=== PATIENT | male | born 1945 | race Caucasian/White ===

== ENCOUNTER 2019-03-02 08:47 | Inpatient (IN) | payer OTHER, MEDICARE, BC ==
[2019-03-02] MEDS ORDERED: IPRATROPIUM-ALBUTEROL 3 ML NEB INHALATION STA (09:11)
[2019-03-02] MEDS ORDERED: ALBUTEROL NEBULIZED 2.5 MG/3 ML INHALATION STA (09:11)
[2019-03-02] MEDS ORDERED: DEXAMETHASONE SOD PHOSPHATE 10 MG/ML 1 ML VIAL IV STA (09:11)
--- NOTE | 2019-03-02 09:19 | ED ---
General Adult HPI - General Chief complaint: Arrhythmia/Palpitations Stated complaint: Chest pain Time Seen by Provider: 03/02/19 08:48 Source: patient, RN notes reviewed, old records reviewed Mode of arrival: wheelchair Limitations: no limitations - History of Present Illness Initial comments: 73-year-old male history of COPD presents for evaluation of 2 weeks of cough and dyspnea. Patient was sent in by primary care physician with worsening dyspnea and abnormal EKG. Patient has no history coronary artery disease, no history of arrhythmia. He was found to have be in a regular rhythm at his primary care office with severe dyspnea and was recommended to presents emergency department for evaluation. He reports 2 weeks of cough productive of green sputum and dyspnea worse with exertion. Denies orthopnea, denies PND. He has no known history of heart failure, no history of CAD. He denies central chest pain. He has had some palpitations. Denies lower extremity swelling. Denies abdominal pain nausea vomiting. - Related Data Home Medications Medication Instructions Recorded Confirmed Atorvastatin Calcium [Lipitor] 10 mg PO DAILY 03/02/19 03/02/19 Budesonide/Formoterol Fumarate 2 puff INHALATION RT-BID 03/02/19 03/02/19 [Symbicort 160-4.5 Mcg Inhaler] Ergocalciferol (Vitamin D2) 50,000 unit PO Q7D 03/02/19 03/02/19 [Vitamin D2] Lisinopril [Prinivil] 10 mg PO DAILY 03/02/19 03/02/19 Phentermine HCl [Adipex-P] 37.5 mg PO DAILY 03/02/19 03/02/19 Allergies Allergy/AdvReac Type Severity Reaction Status Date / Time No Known Allergies Allergy Verified 03/02/19 09:29 Review of Systems ROS Statement: Those systems with pertinent positive or pertinent negative responses have been documented in the HPI. ROS Other: All systems not noted in ROS Statement are negative. Past Medical History Past Medical History: COPD History of Any Multi-Drug Resistant Organisms: None Reported Past Surgical History: Adenoidectomy, Appendectomy, Orthopedic Surgery, Tonsillectomy Past Psychological History: Anxiety, Depression Smoking Status: Former smoker Past Alcohol Use History: None Reported Past Drug Use History: None Reported General Exam Limitations: no limitations General appearance: alert, in distress Head exam: Present: atraumatic, normocephalic Eye exam: Present: normal appearance, PERRL ENT exam: Present: normal exam Neck exam: Present: normal inspection. Absent: tenderness, meningismus Respiratory exam: Present: respiratory distress, wheezes, rales, decreased breath sounds Cardiovascular Exam: Present: regular rate, irregular rhythm GI/Abdominal exam: Present: soft, distended. Absent: tenderness, guarding, rebound Extremities exam: Present: normal inspection, normal capillary refill. Absent: pedal edema, calf tenderness Neurological exam: Present: alert, oriented X3, CN II-XII intact. Absent: motor sensory deficit Psychiatric exam: Present: normal affect, normal mood Skin exam: Present: warm, dry, intact. Absent: cyanosis, diaphoretic Course Vital Signs 03/02/19 03/02/19 03/02/19 08:47 09:01 09:43 Temperature 98.9 F Pulse Rate 47 L 57 L 76 Pulse Rate [ Right Radial] Respiratory 22 24 Rate Blood Pressure 202/96 O2 Sat by Pulse 94 L Oximetry 03/02/19 03/02/19 03/02/19 09:47 09:48 10:17 Temperature Pulse Rate 80 87 Pulse Rate [ 80 Right Radial] Respiratory 22 22 Rate Blood Pressure 160/70 O2 Sat by Pulse 97 Oximetry EKG Findings - EKG Comments: EKG Findings:: EKG: Sinus tachycardia with PVC, there is concern for MAT, rate of 101, OK interval 190, QRS duration 76, QTC 381, significant ectopy. No ST segment elevation. Medical Decision Making - Medical Decision Making 73-year-old male presenting with cough and dyspnea. No chest pain. He has had some palpitations. EKG sinus rhythm with ectopy versus MAT. Chest x-ray shows concern for CHF versus atypical pneumonia with small left-sided effusion. He has an elevated white blood cell count at 17.9. Not previously on oral steroids. He has a stable hemoglobin. His CO2 on venous gas 57 and a bicarb of 32 suggesting some chronic CO2 retention secondary to COPD. He has a BNP of 875. Minimal troponin elevation 0.044, may be related to demand however given the patient's risk factors, he is treated with aspirin and heparin. He has no chest pain. Cardiology will be placed on consult for further evaluation, echo will be obtained. He will be treated for COPD exacerbation and atypical pneumonia. Case discussed with admitting physician. - Lab Data Result diagrams: 03/02/19 09:24 03/02/19 09:24 Lab Results 03/02/19 03/02/19 03/02/19 Range/Units 09:24 09:24 09:24 WBC 17.9 H (3.8-10.6) k/uL RBC 4.95 (4.30-5.90) m/uL Hgb 14.4 (13.0-17.5) gm/dL Hct 45.8 (39.0-53.0) % MCV 92.5 (80.0-100.0) fL MCH 29.1 (25.0-35.0) pg MCHC 31.5 (31.0-37.0) g/dL RDW 13.3 (11.5-15.5) % Plt Count 416 (150-450) k/uL Neutrophils % 78 % Lymphocytes % 12 % Monocytes % 5 % Eosinophils % 4 % Basophils % 1 % Neutrophils # 13.9 H (1.3-7.7) k/uL Lymphocytes # 2.2 (1.0-4.8) k/uL Monocytes # 0.8 (0-1.0) k/uL Eosinophils # 0.7 (0-0.7) k/uL Basophils # 0.1 (0-0.2) k/uL PT (9.0-12.0) sec INR (<1.2) APTT (22.0-30.0) sec VBG pH (7.31-7.41) VBG pCO2 (37-51) mmHg VBG HCO3 (24-28) mmol/L Sodium 142 (137-145) mmol/L Potassium 4.5 (3.5-5.1) mmol/L Chloride 102 (98-107) mmol/L Carbon Dioxide 32 H (22-30) mmol/L Anion Gap 8 mmol/L BUN 17 (9-20) mg/dL Creatinine 0.98 (0.66-1.25) mg/dL Est GFR (CKD-EPI)AfAm >90 (>60 ml/min/1.73 sqM) Est GFR (CKD-EPI)NonAf 78 (>60 ml/min/1.73 sqM) Glucose 108 H (74-99) mg/dL Plasma Lactic Acid Aashish (0.7-2.0) mmol/L Calcium 9.4 (8.4-10.2) mg/dL Magnesium 2.0 (1.6-2.3) mg/dL Total Bilirubin 0.7 (0.2-1.3) mg/dL AST 20 (17-59) U/L ALT 16 L (21-72) U/L Alkaline Phosphatase 71 (38-126) U/L Troponin I (0.000-0.034) ng/mL NT-Pro-B Natriuret Pep 875 pg/mL Total Protein 7.0 (6.3-8.2) g/dL Albumin 4.0 (3.5-5.0) g/dL 03/02/19 03/02/19 03/02/19 Range/Units 09:24 09:24 09:24 WBC (3.8-10.6) k/uL RBC (4.30-5.90) m/uL Hgb (13.0-17.5) gm/dL Hct (39.0-53.0) % MCV (80.0-100.0) fL MCH (25.0-35.0) pg MCHC (31.0-37.0) g/dL RDW (11.5-15.5) % Plt Count (150-450) k/uL Neutrophils % % Lymphocytes % % Monocytes % % Eosinophils % % Basophils % % Neutrophils # (1.3-7.7) k/uL Lymphocytes # (1.0-4.8) k/uL Monocytes # (0-1.0) k/uL Eosinophils # (0-0.7) k/uL Basophils # (0-0.2) k/uL PT 10.3 (9.0-12.0) sec INR 1.0 (<1.2) APTT 26.4 (22.0-30.0) sec VBG pH (7.31-7.41) VBG pCO2 (37-51) mmHg VBG HCO3 (24-28) mmol/L Sodium (137-145) mmol/L Potassium (3.5-5.1) mmol/L Chloride (98-107) mmol/L Carbon Dioxide (22-30) mmol/L Anion Gap mmol/L BUN (9-20) mg/dL Creatinine (0.66-1.25) mg/dL Est GFR (CKD-EPI)AfAm (>60 ml/min/1.73 sqM) Est GFR (CKD-EPI)NonAf (>60 ml/min/1.73 sqM) Glucose (74-99) mg/dL Plasma Lactic Acid Aashish 1.1 (0.7-2.0) mmol/L Calcium (8.4-10.2) mg/dL Magnesium (1.6-2.3) mg/dL Total Bilirubin (0.2-1.3) mg/dL AST (17-59) U/L ALT (21-72) U/L Alkaline Phosphatase (38-126) U/L Troponin I 0.044 H* (0.000-0.034) ng/mL NT-Pro-B Natriuret Pep pg/mL Total Protein (6.3-8.2) g/dL Albumin (3.5-5.0) g/dL 03/02/19 Range/Units 09:24 WBC (3.8-10.6) k/uL RBC (4.30-5.90) m/uL Hgb (13.0-17.5) gm/dL Hct (39.0-53.0) % MCV (80.0-100.0) fL MCH (25.0-35.0) pg MCHC (31.0-37.0) g/dL RDW (11.5-15.5) % Plt Count (150-450) k/uL Neutrophils % % Lymphocytes % % Monocytes % % Eosinophils % % Basophils % % Neutrophils # (1.3-7.7) k/uL Lymphocytes # (1.0-4.8) k/uL Monocytes # (0-1.0) k/uL Eosinophils # (0-0.7) k/uL Basophils # (0-0.2) k/uL PT (9.0-12.0) sec INR (<1.2) APTT (22.0-30.0) sec VBG pH 7.34 (7.31-7.41) VBG pCO2 57 H (37-51) mmHg VBG HCO3 30 H (24-28) mmol/L Sodium (137-145) mmol/L Potassium (3.5-5.1) mmol/L Chloride (98-107) mmol/L Carbon Dioxide (22-30) mmol/L Anion Gap mmol/L BUN (9-20) mg/dL Creatinine (0.66-1.25) mg/dL Est GFR (CKD-EPI)AfAm (>60 ml/min/1.73 sqM) Est GFR (CKD-EPI)NonAf (>60 ml/min/1.73 sqM) Glucose (74-99) mg/dL Plasma Lactic Acid Aashish (0.7-2.0) mmol/L Calcium (8.4-10.2) mg/dL Magnesium (1.6-2.3) mg/dL Total Bilirubin (0.2-1.3) mg/dL AST (17-59) U/L ALT (21-72) U/L Alkaline Phosphatase (38-126) U/L Troponin I (0.000-0.034) ng/mL NT-Pro-B Natriuret Pep pg/mL Total Protein (6.3-8.2) g/dL Albumin (3.5-5.0) g/dL Critical Care Time Critical Care Time: Yes Total Critical Care Time: 35 Disposition Clinical Impression: Arrhythmia, COPD exacerbation, Atypical pneumonia Disposition: ADMITTED IP TO THIS [facility] Condition: Stable Is patient prescribed a controlled substance at d/c from ED?: No Referrals: John Grant MD [Primary Care Provider] - 1-2 days Decision to Admit Reason: Admit from EC Decision Date: 03/02/19 Decision Time: 10:48
[2019-03-02 09:41] LABS: Basophils # (A) 0.1 k/uL (0-0.2); Basophils % (A) 1 %; Eosinophils # (A) 0.7 k/uL (0-0.7); Eosinophils % (A) 4 %; HCT 45.8 % (39.0-53.0); HGB 14.4 gm/dL (13.0-17.5); Lymphocytes # (A) 2.2 k/uL (1.0-4.8); Lymphocytes % (A) 12 %; MCH 29.1 pg (25.0-35.0); MCHC 31.5 g/dL (31.0-37.0); MCV 92.5 fL (80.0-100.0); Mean Platelet Volume 7.1; Monocytes # (A) 0.8 k/uL (0-1.0); Monocytes % (A) 5 %; Neutrophils # (A) 13.9 k/uL (1.3-7.7); Neutrophils % (A) 78 %; Platelet Count 416 k/uL (150-450); RBC 4.95 m/uL (4.30-5.90); RDW 13.3 % (11.5-15.5); WBC 17.9 k/uL (3.8-10.6)
[2019-03-02 09:42] LABS: VBG PH 7.34 (7.31-7.41)
[2019-03-02 09:55] LABS: ALT 16 U/L (21-72); AST 20 U/L (17-59); African American GFR (CKD) >90 (>60 ml/min/1.73 sqM); Alkaline Phosphatase 71 U/L (38-126); Anion Gap 8 mmol/L; Blood Urea Nitrogen 17 mg/dL (9-20); Calcium 9.4 mg/dL (8.4-10.2); Carbon Dioxide 32 mmol/L (22-30); Chloride 102 mmol/L (98-107); Glucose 108 mg/dL (74-99); Partial Thromboplastin Time 26.4 sec (22.0-30.0); Potassium 4.5 mmol/L (3.5-5.1); Prothrombin Time 10.3 sec (9.0-12.0); Sodium 142 mmol/L (137-145); Total Bilirubin 0.7 mg/dL (0.2-1.3)
--- NOTE | 2019-03-02 09:57 | XR ---
EXAMINATION TYPE: XR chest 2V DATE OF EXAM: 03/02/2019 HISTORY: Chest Pain. REFERENCE: Previous study dated 11/06/2012. FINDINGS: Heart size is within normal limits. There are some increased markings throughout the chest. Lung volumes are prominent. There is a tiny left effusion. There is mild interstitial prominence. IMPRESSION: MILD INTERSTITIAL PROMINENCE WITH MILD THICKENING OF THE POSTERIOR WALL OF THE BRONCHUS INTERMEDIUS S UGGESTS INTERSTITIAL CHANGE. THIS COULD BE DUE TO CONGESTIVE HEART FAILURE OR ATYPICAL PNEUMONIA. THE RE IS A SMALL LEFT EFFUSION.
[2019-03-02] MEDS ORDERED: HEPARIN SODIUM,PORCINE 5,000 UNIT/ML 1 ML VIAL IV PRN (10:36)
[2019-03-02] MEDS ORDERED: ASPIRIN 325 MG TAB PO STA ×2 (10:36→11:57)
[2019-03-02] MEDS ORDERED: HEPARIN SODIUM,PORCINE 5,000 UNIT/ML 1 ML VIAL IV ONE (10:36)
[2019-03-02] MEDS ORDERED: cefTRIAXone IN SWFI 1,000 MG/10 ML SYRINGE IVP STA (10:38)
[2019-03-02] MEDS ORDERED: AZITHROMYCIN 500 MG in SODIUM CHLORIDE 0.9% 250 ML IVPB STA (10:40)
[2019-03-02] MEDS ORDERED: IPRATROPIUM-ALBUTEROL 3 ML NEB INHALATION PRN (10:42)
[2019-03-02] MEDS: HEPARIN SOD,PORK IN 0.45% NACL 25,000 UNIT in 0.45% NACL 1 250ML.BAG IV SCH (11:28)
[2019-03-02] MEDS: IPRATROPIUM-ALBUTEROL 3 ML NEB INHALATION SCH ×3 (11:55→19:15)
[2019-03-02] MEDS: methylPREDNISolone SOD SUCCI 125 MG/2 ML VIAL IV SCH ×3 (16:04→22:34)
[2019-03-02 18:28] VITALS: BMI 38.9
[2019-03-02 21:13] LABS: Glucose,Whole Blood 291 mg/dL (75-99)
[2019-03-02] MEDS: QUEtiapine 50 MG TAB PO SCH (22:34)
[2019-03-03 06:12] LABS: Glucose,Whole Blood 113 mg/dL (75-99)
[2019-03-03] MEDS: INSULIN ASPART (NovoLOG) 100 UNIT/ML VIAL SQ SCH ×4 (06:20→21:52)
[2019-03-03] MEDS: methylPREDNISolone SOD SUCCI 125 MG/2 ML VIAL IV SCH ×2 (06:24→12:12)
[2019-03-03 06:41] LABS: Basophils % (A) 0 %; Eosinophils # (A) 0.1 k/uL (0-0.7); Eosinophils % (A) 0 %; HCT 43.9 % (39.0-53.0); HGB 14.2 gm/dL (13.0-17.5); Lymphocytes # (A) 1.3 k/uL (1.0-4.8); Lymphocytes % (A) 5 %; MCHC 32.3 g/dL (31.0-37.0); Mean Platelet Volume 7.5; Monocytes # (A) 0.7 k/uL (0-1.0); Monocytes % (A) 3 %; Neutrophils # (A) 22.7 k/uL (1.3-7.7); Neutrophils % (A) 91 %; Platelet Count 414 k/uL (150-450); RBC 4.72 m/uL (4.30-5.90); RDW 13.3 % (11.5-15.5); WBC 24.9 k/uL (3.8-10.6)
--- NOTE | 2019-03-03 07:25 | ECHOF ---
Referral Reason:CHF? MEASUREMENTS -------- HEIGHT: 167.6 cm WEIGHT: 109.3 kg BP: 160/70 RVIDd: 3.1 cm (< 3.3) IVSd: 1.4 cm (0.6 - 1.1) LVIDd: 4.6 cm (3.9 - 5.3) LVPWd: 1.4 cm (0.6 - 1.1) IVSs: 1.9 cm LVIDs: 3.8 cm LVPWs: 2.0 cm LA Diam: 3.8 cm (2.7 - 3.8) LAESV Index (A-L): 27.86 ml/m Ao Diam: 3.7 cm (2.0 - 3.7) AV Cusp: 1.9 cm (1.5 - 2.6) MV EXCURSION: 31.345 mm (> 18.000) MV EF SLOPE: 128 mm/s (70 - 150) EPSS: 0.8 cm RAP: 5.00 mmHg RVSP: 42.30 mmHg FINDINGS -------- Atrial fibrillation. This was a technically adequate study. Pt. Had Back surgery: brace up to collar bone. The left ventricular size is normal. There is moderate concentric left ventricular hypertrophy. O verall left ventricular systolic function is mild-moderately impaired with, an EF between 40 - 45 %. The right ventricle is normal in size. Normal LA size by volume 22+/-6 ml/m2. The right atrium is normal in size. Interatrial and interventricular septum intact. There is mild aortic valve sclerosis. Mild mitral annular calcification present. Mild mitral regurgitation is present. Mild tricuspid regurgitation present. There is mild pulmonary hypertension. The right ventricular systolic pressure, as measured by Doppler, is 42.30mmHg. Trace/mild (physiologic) pulmonic regurgitation. The aortic root size is normal. Normal inferior vena cava with normal inspiratory collapse consistent with estimated right atrial pre ssure of 5 mmHg. There is no pericardial effusion. CONCLUSIONS -------- 1. Atrial fibrillation. 2. This was a technically adequate study. 3. The left ventricular size is normal. 4. There is moderate concentric left ventricular hypertrophy. 5. Overall left ventricular systolic function is mild-moderately impaired with, an EF between 40 - 45 %. 6. The right ventricle is normal in size. 7. Normal LA size by volume 22+/-6 ml/m2. 8. The right atrium is normal in size. 9. Interatrial and interventricular septum intact. 10. There is mild aortic valve sclerosis. 11. Mild mitral annular calcification present. 12. Mild mitral regurgitation is present. 13. Mild tricuspid regurgitation present. 14. There is mild pulmonary hypertension. 15. The right ventricular systolic pressure, as measured by Doppler, is 42.30mmHg. 16. Trace/mild (physiologic) pulmonic regurgitation. 17. The aortic root size is normal. 18. Normal inferior vena cava with normal inspiratory collapse consistent with estimated right atrial pressure of 5 mmHg. 19. There is no pericardial effusion. TECH ED/[employer] TEACHER: Elana Acosta RDCS
[2019-03-03] MEDS: IPRATROPIUM-ALBUTEROL 3 ML NEB INHALATION SCH ×4 (08:43→20:38)
[2019-03-03] MEDS: HEPARIN SOD,PORK IN 0.45% NACL 25,000 UNIT in 0.45% NACL 1 250ML.BAG IV SCH (10:20)
--- NOTE | 2019-03-03 11:45 | P.CRDCN ---
History of Present Illness Consult date: 03/03/19 Reason for Consult (text): Elevated troponins, arrhythmia Chief complaint: Shortness of breath History of present illness: This is a 72-year-old male with no previous cardiac history. He does have history of COPD and follows at the [facility] for his healthcare needs. Patient states he came in the hospital due to shortness of breath. He is not home O2 dependent. He states he has had some palpitations, no chest pain. His initial heart rate was noted to be 47 and blood pressure 202/96. Chest x-ray showed questionable CHF or atypical pneumonia and small left effusion. patient denies any significant improvement of his shortness of breath. he complains of cough with sputum production. patient states that he has increased shortness of breath with minimal activity such as walking to the bathroom. He has been on nebulizer treatments as well as IV Solu-Medrol. Patient was started on a heparin drip in the emergency center.patient denies having echocardiogram done in the past. He has been advised to take his records from [facility] Ananda David to his next visit at [facility]. EKG reveals sinus mechanismwith frequent PACs and PVCs. No ST-T wave changes.. Echocardiogram reveals EF of 40-45% with mild mitral regurgitation and mild pulmonary hypertension. Laboratory studies: WBC 17.9, troponin 0.044, 0.019, 0.020. ProBNP 875. Social history: patient quit smoking a few weeks ago. He denies any alcohol abuse. Review Of Systems: Constitutional: No fever, no chills, no night sweats. No weight change. No weakness, fatigue or lethargy. No daytime sleepiness. EENT: No headache. No nasal drainage or congestion. No epistaxis. No sore throat. Lungs: reports shortness of breath, reports cough, reports sputum production. reports wheezing. Cardiovascular: No chest pain, no lower extremity edema. No palpitations. No paroxysmal nocturnal dyspnea. No orthopnea. No lightheadedness or dizziness. No syncopal episodes. Abdominal: No abdominal pain. No nausea, vomiting. No diarrhea. No constip ation. No bloody or tarry stools. No loss of appetite. Genitourinary: No dysuria. No urinary retention. Musculoskeletal: No myalgias. No muscle weakness, no gait dysfunction, no frequent falls. Integumentary: No wounds, No rash or pruritus. Neurologic: No aphasia. No facial droop. No change in mentation. No head injury. No headache. No paralysis. No paresthesia. Endocrine: No excessive sweating or thirst. No weight change. Physical exam: Gen: This is a 73-year-old male. He is resting in bed and appears to be fairly comfortable. He is complaining of shortness of breath but no acute dyspnea noted at rest. Blood pressure 202/96, heart rate 57, respirations 24, pulse ox 94% on 2 L nasal cannula. HEENT: Head is atraumatic, normocephalic. Pupils equal, round. Sclerae is anicteric. NECK: Supple. No JVD. No lymphadenopathy. No thyromegaly. LUNGS: Clear to auscultation. No wheezes or rhonchi. No intercostal retractions. HEART: Regular rate and rhythm. No murmur. ABDOMEN: Soft. Bowel sounds are present. No masses. No tenderness. EXTREMITIES: No pedal edema. No calf tenderness. NEUROLOGICAL: Patient is awake, alert and oriented x3. Cranial nerves 2 through 12 are grossly intact. Assessment: acute bronchitis and exacerbation of COPD. Elevated troponins on related to myocardial injury. Cardiomyopathy of unclear etiology. Cardiac arrhythmia with frequent PACs and PVCs. Hyperglycemia secondary to steroids. Hypertension, new diagnoses. Plan: Discontinue heparin drip and place patient on subcu heparin. Start aspirin 81 mg daily. Start Metoprolol tartrate 25 mg twice daily. Start losartan 25 mg daily. Consult with Dr. Reagan for COPD exacerbation and acute bronchitis. Further recommendations to follow based upon clinical course. patient to take hospital records [facility] further workup regarding cardiomyopathy. Nurse practitioner note has been reviewed, I agree with documented findings and plan of care. Patient was seen and examined. Past Medical History Past Medical History: COPD History of Any Multi-Drug Resistant Organisms: None Reported Past Surgical History: Adenoidectomy, Appendectomy, Orthopedic Surgery, Tonsillectomy Past Psychological History: Anxiety, Depression, PTSD Smoking Status: Former smoker Past Alcohol Use History: None Reported Past Drug Use History: None Reported - Past Family History Mother Family Medical History: No Reported History Father Family Medical History: Hypertension Medications and Allergies Home Medications Medication Instructions Recorded Confirmed Type Budesonide/Formoterol Fumarate 2 puff INHALATION RT-BID 03/02/19 03/02/19 History [Symbicort 160-4.5 Mcg Inhaler] PARoxetine HCL [Paxil] 40 mg PO HS 03/02/19 03/02/19 History Prazosin HCl 2 mg PO HS 03/02/19 03/02/19 History QUEtiapine FUMARATE 50 mg PO HS 03/02/19 03/02/19 History Allergies Allergy/AdvReac Type Severity Reaction Status Date / Time No Known Allergies Allergy Verified 03/02/19 09:29 Physical Exam Vitals: Vital Signs Temp Pulse Pulse Pulse Resp BP BP 03/03/19 08:56 84 03/03/19 08:44 61 18 03/03/19 08:07 64 20 03/03/19 08:06 97.6 F 64 20 126/71 03/03/19 04:00 98.8 F 90 80 20 156/88 03/03/19 00:00 98.4 F 115 H 80 20 151/70 03/02/19 20:00 98.0 F 75 80 20 141/89 03/02/19 19:32 98 03/02/19 19:24 98 03/02/19 19:14 122 H 20 03/02/19 19:12 97.9 F 40 L 20 131/88 03/02/19 18:04 97.9 F 40 L 20 131/88 03/02/19 16:40 98.0 F 87 16 155/78 03/02/19 15:28 87 16 153/82 03/02/19 14:30 98 18 146/87 03/02/19 13:30 98.6 F 87 16 150/78 03/02/19 12:30 81 16 149/87 03/02/19 12:05 91 03/02/19 11:55 101 H Pulse Ox 03/03/19 08:56 03/03/19 08:44 95 03/03/19 08:07 03/03/19 08:06 96 03/03/19 04:00 93 L 03/03/19 00:00 94 L 03/02/19 20:00 95 03/02/19 19:32 03/02/19 19:24 03/02/19 19:14 03/02/19 19:12 96 03/02/19 18:04 96 03/02/19 16:40 98 03/02/19 15:28 98 03/02/19 14:30 98 03/02/19 13:30 99 03/02/19 12:30 99 03/02/19 12:05 03/02/19 11:55 Intake and Output 03/02/19 03/03/19 03/03/19 22:59 06:59 14:59 Intake Total 1441.333 141.968 Balance 1441.333 141.968 Intake: IV 240 .9 @ 20 240 Intake, IV Titration 361.333 141.968 Amount Azithromycin 500 mg In 250 Sodium Chloride 0.9% 250 ml @ 250 mls/hr IVPB ONCE STA Rx#:[id number] Heparin Sod,Pork in 0.45% 111.333 141.968 NaCl 25,000 unit In 0.45 % NaCl 1 250ml.bag @ 9. 148 UNITS/KG/HR 10 mls/hr IV .Q24H [facility] Rx#: [id number] Oral 840 Other: Voiding Method Toilet Toilet Toilet Urinal Urinal Urinal # Voids 0 # Bowel Movements 0 Weight 110.5 kg Results 03/03/19 05:23 03/02/19 09:24 Cardiac Enzymes 03/02/19 03/02/19 Range/Units 16:18 21:37 Troponin I 0.019 0.020 (0.000-0.034) ng/mL Coagulation 03/02/19 03/02/19 03/03/19 Range/Units 16:18 21:37 05:23 APTT 30.1 H 29.0 32.6 H (22.0-30.0) sec CBC 03/03/19 Range/Units 05:23 WBC 24.9 H (3.8-10.6) k/uL RBC 4.72 (4.30-5.90) m/uL Hgb 14.2 (13.0-17.5) gm/dL Hct 43.9 (39.0-53.0) % Plt Count 414 (150-450) k/uL Current Medications Generic Name Dose Route Start Last Admin Trade Name Freq PRN Reason Stop Dose Admin Albuterol/Ipratropium 3 ml 03/02/19 10:42 Duoneb 0.5 Mg-3 Mg/3 Ml Soln INHALATION RT-Q4H PRN Shortness Of Breath Or Wheezing Albuterol/Ipratropium 3 ml 03/02/19 12:00 03/03/19 08:43 Duoneb 0.5 Mg-3 Mg/3 Ml Soln INHALATION 3 ml RT-QID [facility]IL[facility] Administration Aspirin 81 mg 03/04/19 09:00 Aspirin PO DAILY [facility] Heparin Sodium (Porcine) 5,000 unit 03/03/19 21:00 Heparin SQ Q12HR [facility] Insulin Aspart 0 unit 03/03/19 07:30 03/03/19 06:20 Novolog SQ Not Given ACHS [facility] Protocol Losartan Potassium 25 mg 03/03/19 11:00 Cozaar PO DAILY [facility] Methylprednisolone Sodium Succinate 60 mg 03/02/19 12:00 03/03/19 06:24 Solu-Medrol IV 60 mg Q6HR [facility] Administration Metoprolol Tartrate 25 mg 03/03/19 11:00 Lopressor PO BID [facility] Paroxetine HCl 40 mg 03/03/19 21:00 Paxil PO HS [facility] Prazosin HCl 2 mg 03/03/19 21:00 Minipress PO HS [facility] Quetiapine Fumarate 50 mg 03/02/19 22:00 03/02/19 22:34 Seroquel PO 50 mg HS [facility] Administration Intake and Output 03/02/19 03/03/19 03/03/19 22:59 06:59 14:59 Intake Total 1441.333 141.968 Balance 1441.333 141.968 Intake: IV 240 .9 @ 20 240 Intake, IV Titration 361.333 141.968 Amount Azithromycin 500 mg In 250 Sodium Chloride 0.9% 250 ml @ 250 mls/hr IVPB ONCE STA Rx#:[id number] Heparin Sod,Pork in 0.45% 111.333 141.968 NaCl 25,000 unit In 0.45 % NaCl 1 250ml.bag @ 9. 148 UNITS/KG/HR 10 mls/hr IV .Q24H [facility] Rx#: [id number] Oral 840 Other: Voiding Method Toilet Toilet Toilet Urinal Urinal Urinal # Voids 0 # Bowel Movements 0 Weight 110.5 kg 03/03/19 05:23 03/02/19 09:24
[2019-03-03] MEDS: LOSARTAN 25 MG TAB PO SCH (12:12)
[2019-03-03] MEDS: METOPROLOL TARTRATE 25 MG TAB PO SCH ×2 (12:12→21:53)
[2019-03-03 12:13] LABS: Glucose,Whole Blood 168 mg/dL (75-99)
--- NOTE | 2019-03-03 15:09 | P.HPIM ---
History of Present Illness H&P Date: 03/03/19 Chief Complaint: Short of breath History of presenting complaint: This is a very pleasant 73-year-old patient of Dr. spears, from [place]. Patient with a long-standing smoker for several years. Patient presents with 2 months of worsening respiratory symptoms. Predominantly a lot of cough and subsequently sputum wheezing. No fevers. Appetite is fair. Also got wheezing. Bringing up green sputum. Has been given oxygen supplementation. She had gone to his PCPs office. In the center to the ER. Patient also notices hearts to be increasing with palpitation with activity. No chest pressure or process such though he has some chest tightness. This is the short winded and he was short of breath at rest. Patient quit smoking 2 weeks ago since his symptoms got worse. Review of systems: GEN.: Tired EYES: None HEENT: None NECK: None RESPIRATORY: As above CARDIOVASCULAR: None GASTROINTESTINAL: None GENITOURINARY: None MUSCULOSKELETAL: None LYMPHATICS:. Pain In the joints HEMATOLOGICAL: None PSYCHIATRY: Slightly anxious NEUROLOGICAL: None Past medical history: Anxiety, depression, COPD Social history: , smoked for 50 years about a pack and half a day up to 2 weeks ago. No alcohol. 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 EYES: Pupils equal. Conjunctiva normal. HEENT: External appearance of nose and ears normal, oral cavity grossly normal. NECK: JVD unable to assess; masses not palpable. HEART: First and second heart sounds are normal; with irregularity no edema. LUNGS: Respiratory rate increased, decreased breath sounds prolonged expiration and some scattered expiratory crackles and coarse. ABDOMEN: Soft, distended, nontender, liver spleen not palpable, no masses palpable. PSYCH: Alert and oriented x3; mood and affect slightly anxiousl. NEUROLOGICAL: Cranial nerves grossly intact; no facial asymmetry, power and sensation grossly intact. LYMPHATICS: No lymph nodes palpable in the axilla and neck Investigations, reviewed in the clinical context: Line -White count 17.9, hemoglobin 14.4, platelets 416, potassium 4.5, crit 0.98, Accu-Cheks 291 EKG tracing personally reviewed by me shows multiple PACs -Chest x-ray film was reviewed by me shows some scant infiltrate at the bases 2-D echocardiogram-shows EF of 40-45% and concentric left medical hypertrophy Assessment: -Acute severe COPD exacerbation in the current smoker -Chronic nicotine dependence. Cigarette smoker -Anxiety depression not otherwise specified -Multiple PACs, symptomatic - cardiomyopathy with EF of 40-45% from underlying hypertensive heart disease -Hypertensive heart disease -Obesity BMI 39.3 Plan: Patient started on nebulized broncho-titers every 4 hours, IV steroids, inhaled steroids. Accu-Cheks will be followed with sliding scale insulin. Cardiology and pulmonary was consulted. Care was discussed with the patient. Plan the patient see a dietitian. Home medications are to be resumed. Lovenox for DVT prophylaxis. Smoke cessation counseling: This was done with the patient. Asked to stop smoking. Patient was given a nicotine patch. More than 3 minutes were spent on this. Past Medical History Past Medical History: COPD History of Any Multi-Drug Resistant Organisms: None Reported Past Surgical History: Adenoidectomy, Appendectomy, Orthopedic Surgery, Tonsillectomy Past Psychological History: Anxiety, Depression, PTSD Smoking Status: Former smoker Past Alcohol Use History: None Reported Past Drug Use History: None Reported - Past Family History Mother Family Medical History: No Reported History Father Family Medical History: Hypertension Medications and Allergies Home Medications Medication Instructions Recorded Confirmed Type Budesonide/Formoterol Fumarate 2 puff INHALATION RT-BID 03/02/19 03/02/19 History [Symbicort 160-4.5 Mcg Inhaler] PARoxetine HCL [Paxil] 40 mg PO HS 03/02/19 03/02/19 History Prazosin HCl 2 mg PO HS 03/02/19 03/02/19 History QUEtiapine FUMARATE 50 mg PO HS 03/02/19 03/02/19 History Allergies Allergy/AdvReac Type Severity Reaction Status Date / Time No Known Allergies Allergy Verified 03/02/19 09:29 Physical Exam Vitals: Vital Signs Temp Pulse Pulse Pulse Resp BP BP 03/03/19 08:56 84 03/03/19 08:44 61 18 03/03/19 08:07 64 20 03/03/19 08:06 97.6 F 64 20 126/71 03/03/19 04:00 98.8 F 90 80 20 156/88 03/03/19 00:00 98.4 F 115 H 80 20 151/70 03/02/19 20:00 98.0 F 75 80 20 141/89 03/02/19 19:32 98 03/02/19 19:24 98 03/02/19 19:14 122 H 20 03/02/19 19:12 97.9 F 40 L 20 131/88 03/02/19 18:04 97.9 F 40 L 20 131/88 03/02/19 16:40 98.0 F 87 16 155/78 03/02/19 15:28 87 16 153/82 03/02/19 14:30 98 18 146/87 03/02/19 13:30 98.6 F 87 16 150/78 03/02/19 12:30 81 16 149/87 03/02/19 12:05 91 03/02/19 11:55 101 H 03/02/19 10:17 87 Pulse Ox 03/03/19 08:56 03/03/19 08:44 95 03/03/19 08:07 03/03/19 08:06 96 03/03/19 04:00 93 L 03/03/19 00:00 94 L 03/02/19 20:00 95 03/02/19 19:32 03/02/19 19:24 03/02/19 19:14 03/02/19 19:12 96 03/02/19 18:04 96 03/02/19 16:40 98 03/02/19 15:28 98 03/02/19 14:30 98 03/02/19 13:30 99 03/02/19 12:30 99 03/02/19 12:05 03/02/19 11:55 03/02/19 10:17 Intake and Output 03/02/19 03/03/19 03/03/19 22:59 06:59 14:59 Intake Total 1441.333 111.327 Balance 1441.333 111.327 Intake: IV 240 .9 @ 20 240 Intake, IV Titration 361.333 111.327 Amount Azithromycin 500 mg In 250 Sodium Chloride 0.9% 250 ml @ 250 mls/hr IVPB ONCE STA Rx#:[id number] Heparin Sod,Pork in 0.45% 111.333 111.327 NaCl 25,000 unit In 0.45 % NaCl 1 250ml.bag @ 9. 148 UNITS/KG/HR 10 mls/hr IV .Q24H [facility] Rx#: [id number] Oral 840 Other: Voiding Method Toilet Toilet Toilet Urinal Urinal Urinal # Voids 0 # Bowel Movements 0 Weight 110.5 kg Results CBC & Chem 7: 03/03/19 05:23 03/02/19 09:24 Labs: Abnormal Lab Results - Last 24 Hours (Table) 03/02/19 03/02/19 03/02/19 Range/Units 09:24 16:18 21:12 WBC (3.8-10.6) k/uL Neutrophils # (1.3-7.7) k/uL APTT 30.1 H (22.0-30.0) sec POC Glucose (mg/dL) 291 H (75-99) mg/dL Troponin I 0.044 H* (0.000-0.034) ng/mL 03/03/19 03/03/19 03/03/19 Range/Units 05:23 05:23 06:11 WBC 24.9 H (3.8-10.6) k/uL Neutrophils # 22.7 H (1.3-7.7) k/uL APTT 32.6 H (22.0-30.0) sec POC Glucose (mg/dL) 113 H (75-99) mg/dL Troponin I (0.000-0.034) ng/mL Microbiology - Last 24 Hours (Table) 03/02/19 09:24 Blood Culture - Preliminary Blood Thrombosis Risk Factor Assmnt - Choose All That Apply Any of the Below Risk Factors Present?: Yes Each Factor Represents 1 point: Abnormal pulmonary function (COPD), Obesity (BMI >25) Other Risk Factors: Yes Each Risk Factor Represents 2 Points: Age 61-74 years Other congenital or acquired thrombophilia - If yes, enter type in comment: No Thrombosis Risk Factor Assessment Total Risk Factor Score: 4 Thrombosis Risk Factor Assessment Level: Moderate Risk
[2019-03-03] MEDS: BUDESONIDE 1 MG/2 ML NEBU INHALATION SCH ×2 (16:37→20:38)
[2019-03-03 17:02] LABS: Glucose,Whole Blood 173 mg/dL (75-99)
[2019-03-03] MEDS: methylPREDNISolone SOD SUCCI 40 MG/ML 1 ML VIAL IV SCH ×2 (17:19→23:21)
[2019-03-03] MEDS: AZITHROMYCIN 500 MG TAB PO SCH (17:20)
[2019-03-03] MEDS ORDERED: HEPARIN SODIUM,PORCINE 5,000 UNIT/ML 1 ML VIAL SQ SCH (21:00)
[2019-03-03 21:15] LABS: Glucose,Whole Blood 181 mg/dL (75-99)
[2019-03-03] MEDS: PRAZOSIN 1 MG CAP PO SCH (21:53)
[2019-03-03] MEDS: guaiFENesin 600 MG TABLET.ER PO SCH (21:53)
[2019-03-03] MEDS: PARoxetine 20 MG TAB PO SCH (21:53)
[2019-03-03] MEDS: QUEtiapine 50 MG TAB PO SCH (21:53)
[2019-03-04] MEDS: IPRATROPIUM-ALBUTEROL 3 ML NEB INHALATION SCH ×7 (00:15→23:38)
[2019-03-04 06:14] LABS: Glucose,Whole Blood 156 mg/dL (75-99)
[2019-03-04] MEDS: INSULIN ASPART (NovoLOG) 100 UNIT/ML VIAL SQ SCH ×4 (06:48→22:41)
[2019-03-04] MEDS: BUDESONIDE 1 MG/2 ML NEBU INHALATION SCH ×2 (07:40→19:22)
[2019-03-04 07:46] LABS: HCT 42.8 % (39.0-53.0); HGB 13.4 gm/dL (13.0-17.5); MCH 29.2 pg (25.0-35.0); MCHC 31.3 g/dL (31.0-37.0); MCV 93.3 fL (80.0-100.0); Mean Platelet Volume 7.3; Platelet Count 405 k/uL (150-450); RBC 4.58 m/uL (4.30-5.90); RDW 13.5 % (11.5-15.5); WBC 30.7 k/uL (3.8-10.6)
[2019-03-04 08:05] LABS: Band Neutrophils % 1 %; Lymphocytes # (M) 2.76 k/uL (1.0-4.8); Monocytes # (M) 0.61 k/uL (0-1.0); Neutrophils % (M) 88 %; Nucleated Red Blood Cells 0 /100 WBC (0-0); Total Cells Counted 200
[2019-03-04] MEDS: methylPREDNISolone SOD SUCCI 40 MG/ML 1 ML VIAL IV SCH ×3 (09:01→22:34)
[2019-03-04] MEDS: AZITHROMYCIN 500 MG TAB PO SCH (09:02)
[2019-03-04] MEDS: LOSARTAN 25 MG TAB PO SCH (09:02)
[2019-03-04] MEDS: ASPIRIN 81 MG PO SCH (09:02)
[2019-03-04] MEDS: guaiFENesin 600 MG TABLET.ER PO SCH ×2 (09:02→22:32)
[2019-03-04] MEDS: ENOXAPARIN 40 MG/0.4 ML SYRINGE SQ SCH (09:02)
[2019-03-04] MEDS: METOPROLOL TARTRATE 25 MG TAB PO SCH ×2 (09:02→22:31)
[2019-03-04 12:06] LABS: Glucose,Whole Blood 175 mg/dL (75-99)
--- NOTE | 2019-03-04 13:29 | P.PN ---
Subjective Very pleasant 73-year-old female comes in for shortness of breath and cough. He was diagnosed with COPD exacerbation. Patient was started on steroids, breathing treatments. His troponins were elevated he was initially started on heparin drip which was DC'd by cardiology. On 03/04/2019 Patient says that he still short of breath and is coughing which is productive of phlegm No chest pain racing heart No abdominal pain, nausea and vomiting, or diarrhea constipation Objective - Vital Signs Vital signs: Vital Signs Temp 96.1 F L 03/04/19 08:00 Pulse 62 03/04/19 11:12 Resp 16 03/04/19 11:27 BP 102/61 03/04/19 08:00 Pulse Ox 93 L 03/04/19 08:00 Intake & Output 03/03/19 03/04/19 03/04/19 18:59 06:59 18:59 Intake Total 931.968 240 Output Total 250 Balance 681.968 240 Intake: IV 100 .9 @ 20 100 Intake, IV Titration 141.968 Amount Heparin Sod,Pork in 0.45% 141.968 NaCl 25,000 unit In 0.45 % NaCl 1 250ml.bag @ 9. 148 UNITS/KG/HR 10 mls/hr IV .Q24H [facility] Rx#: [id number] Oral 690 240 Output: Urine 250 Other: Voiding Method Toilet Toilet Toilet Urinal # Voids 1 # Bowel Movements 0 - Exam On exam, alert and oriented x3. HEENT: Conjunctivae normal. eyes normal. NECK: No JVD. No thyroid enlargement. No LNs CARDIOVASCULAR: S1-S2 positive RESPIRATION: Patient was having coarse breath sounds bilaterally posteriorly ABDOMEN: Soft, nontender . No guarding. no masses palpable. No ascites, No hepatosplenomegaly.Bowel sounds heard. LEGS: No edema. no swelling NERVOUS SYSTEM: Cranial N 2-12 grossly normal. Moves all 4 limbs. No focal deficits. No sensory deficit. No signs of cerebellar dysfucntion. Skin: no ulcer no rash - Labs CBC & Chem 7: 03/04/19 06:34 03/02/19 09:24 Labs: Abnormal Lab Results - Last 24 Hours (Table) 03/03/19 03/03/19 03/04/19 Range/Units 17:00 21:14 06:12 WBC (3.8-10.6) k/uL Neutrophils # (Manual) (1.3-7.7) k/uL POC Glucose (mg/dL) 173 H 181 H 156 H (75-99) mg/dL 03/04/19 03/04/19 Range/Units 06:34 11:59 WBC 30.7 H (3.8-10.6) k/uL Neutrophils # (Manual) 27.30 H (1.3-7.7) k/uL POC Glucose (mg/dL) 175 H (75-99) mg/dL Assessment and Plan Assessment: - Acute severe COPD exacerbation in the current smoker - Troponin elevation - Chronic nicotine dependence. Cigarette smoker - Anxiety depression not otherwise specified - Multiple PACs, symptomatic - cardiomyopathy with EF of 40-45% from underlying hypertensive heart disease - Hypertensive heart disease Plan - Continue steroids, breathing treatments. Pulmonology consulted waiting re commendations from pulmonology - Cardiology consulted for elevated tropes. The patient recommendations. Tropes trending down. Echo ordered - Continue rest of the medical care - Follow the patient - Patient has leukocytosis probably related to steroids we will repeat the CBC in the morning
[2019-03-04 16:49] LABS: Glucose,Whole Blood 140 mg/dL (75-99)
--- NOTE | 2019-03-04 17:35 | P.PN ---
Subjective Progress Note Date: 03/04/19 Principal diagnosis: shortness of breath/troponin elevation This is a 72-year-old male with no previous cardiac history. He does have history of COPD and follows at the [facility] for his healthcare needs. Patient states he came in the hospital due to shortness of breath, cough and unable to ambulate long distances. Patient currently resting comfortably in bed with no acute distress. Patient complains he cannot walk across the room without getting short of breath and then his heart races. Patient continues sinus rhythm with frequent PACs, rate controlled at 60. VSS. Most recent labs WNL. Continues metoprolol tartrate 25 mg twice a day. Continue updraft treatments. Ejection fraction 40-45%, moderate LVH. Mild MR. Mild TR. Mild troponin elevation not related to acute cardiac event. Patient states his shortness of breath with ambulation has been happening for some time. Awaiting pulmonary consult. PHYSICAL EXAM: VITAL SIGNS: GENERAL: Well developed, in no acute distress. HEENT: Head is atraumatic, normocephalic. Pupils are equal, round. Extra ocular movements intact. Mucous membranes moist. Neck supple. No JVD. No carotid bruit. No thyromegaly. LUNGS: Bilateral wheezes and decreased air movement. NO rales or rhonchi. No chest wall tenderness on palpation or with deep breathing. HEART: irregular rate and rhythm, no rubs or gallops. S1 and S2 heard. No murmur. ABDOMEN: Abdominal exam, WNL. Bowel sounds x4 quads. Soft, non-tender, without masses, organomegaly, or abdominal aorta enlargement. EXTREMITIES/VASCULAR: Extremities have easily palpable radial, femoral, dorsalis pedis and posterior tibial pulses. No cyanosis, calf tenderness. No BLE edema. NEUROLOGIC: Patient is awake, alert and oriented x3. No focal neurologic abnormalities. 1. COPD exacerbation 2. Former tobacco abuse 3. Shortness of breath with exertion 4. Depression 5. PTSD 6. Mild troponin elevation secondary to COPD exacerbation, no acute cardiology process. Objective - Vital Signs Vital signs: Vital Signs Temp 96.1 F L 03/04/19 08:00 Pulse 61 03/04/19 15:55 Resp 16 03/04/19 15:55 BP 145/89 03/04/19 12:00 Pulse Ox 95 03/04/19 15:45 Intake & Output 03/03/19 03/04/19 03/04/19 18:59 06:59 18:59 Intake Total 931.968 840 Output Total 250 Balance 681.968 840 Intake: IV 100 .9 @ 20 100 Intake, IV Titration 141.968 Amount Heparin Sod,Pork in 0.45% 141.968 NaCl 25,000 unit In 0.45 % NaCl 1 250ml.bag @ 9. 148 UNITS/KG/HR 10 mls/hr IV .Q24H [facility] Rx#: [id number] Oral 690 840 Output: Urine 250 Other: Voiding Method Toilet Toilet Toilet Urinal # Voids 1 # Bowel Movements 0 - Labs CBC & Chem 7: 03/04/19 06:34 03/02/19 09:24 Labs: Abnormal Lab Results - Last 24 Hours (Table) 03/03/19 03/04/19 03/04/19 Range/Units 21:14 06:12 06:34 WBC 30.7 H (3.8-10.6) k/uL Neutrophils # (Manual) 27.30 H (1.3-7.7) k/uL POC Glucose (mg/dL) 181 H 156 H (75-99) mg/dL 03/04/19 03/04/19 Range/Units 11:59 16:40 WBC (3.8-10.6) k/uL Neutrophils # (Manual) (1.3-7.7) k/uL POC Glucose (mg/dL) 175 H 140 H (75-99) mg/dL
--- NOTE | 2019-03-04 18:13 | P.CNPUL ---
History of Present Illness Consult date: 03/04/19 Requesting physician: Pardeep Paz Reason for consult: dyspnea Chief complaint: Dyspnea, cough History of present illness: This is a 73-year-old white male patient of Dr. Grant, with past medical history of COPD unknown severity, on no home oxygen, morbid obesity, former smoker, anxiety, depression, PTSD syndrome, presented to the hospital on 03/02/2019 with complaints of 2 weeks worth of dyspnea, cough and congestion. Bringing up a light green colored phlegm. No fever or chills, patient states that he has nighttime sweating, he thinks this may be related to his history of PTSD. No hemoptysis, no chest pain, no lower extremity swelling, no orthopnea, no paroxysmal nocturnal dyspnea. Patient did have some palpitations, abdominal pain, nausea or vomiting. 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 Chest x-ray was completed showing mild interstitial prominence suggesting a possibility of congestive heart failure or atypical pneumonia, and a small left pleural effusion. Patient has been afebrile while inpatient, room air pulse ox is 95%. Labs on admission showed white blood cell, 17.9, hemoglobin of 14.4, INR is 1.0, serum sodium was 142, potassium is 4.5, chloride is 102, CO2 is 32, BUN is 17, creatinine was 0.98, troponins were 0.044, 0.019, and 0.020. BNP is 875. EKG showed sinus mechanism with frequent PACs and PVCs, no ST or T-wave changes. Echocardiogram revealed EF of 40-45% with mild mitral regurgitation and mild pulmonary hypertension. He quit smoking a couple weeks ago, carries a [id number] smoking history. Has been evaluated by cardiology, and has been started on beta blockers, arms, and aspirin. Started on Zithromax, neb last Vi codin is an IV steroids, and he is improved on today's exam. Review of Systems All systems: negative Constitutional: Denies chills, Denies fever Eyes: denies blurred vision, denies pain Ears, nose, mouth and throat: Denies headache, Denies sore throat Cardiovascular: Denies chest pain, Denies shortness of breath Respiratory: Denies cough Gastrointestinal: Denies abdominal pain, Denies diarrhea, Denies nausea, Denies vomiting Musculoskeletal: Denies myalgias Integumentary: Denies pruritus, Denies rash Neurological: Denies numbness, Denies weakness Psychiatric: Denies anxiety, Denies depression Endocrine: Denies fatigue, Denies weight change Past Medical History Past Medical History: COPD History of Any Multi-Drug Resistant Organisms: None Reported Past Surgical History: Adenoidectomy, Appendectomy, Orthopedic Surgery, Tonsillectomy Past Psychological History: Anxiety, Depression, PTSD Smoking Status: Former smoker Past Alcohol Use History: None Reported Past Drug Use History: None Reported - Past Family History Mother Family Medical History: No Reported History Father Family Medical History: Hypertension Medications and Allergies Home Medications Medication Instructions Recorded Confirmed Type Budesonide/Formoterol Fumarate 2 puff INHALATION RT-BID 03/02/19 03/02/19 History [Symbicort 160-4.5 Mcg Inhaler] PARoxetine HCL [Paxil] 40 mg PO HS 03/02/19 03/02/19 History Prazosin HCl 2 mg PO HS 03/02/19 03/02/19 History QUEtiapine FUMARATE 50 mg PO HS 03/02/19 03/02/19 History Allergies Allergy/AdvReac Type Severity Reaction Status Date / Time No Known Allergies Allergy Verified 03/02/19 09:29 Physical Exam Vitals: Vital Signs Temp Pulse Pulse Resp BP Pulse Ox 03/04/19 15:55 61 16 03/04/19 15:45 59 L 16 95 03/04/19 12:00 52 L 16 145/89 94 L 03/04/19 11:27 16 03/04/19 11:12 62 03/04/19 10:58 60 03/04/19 08:00 96.1 F L 56 L 16 102/61 93 L 03/04/19 07:53 66 03/04/19 07:41 66 03/04/19 04:50 70 03/04/19 04:39 70 03/04/19 04:30 98.1 F 62 18 123/65 95 03/04/19 00:27 70 03/04/19 00:16 68 03/03/19 23:25 65 20 141/83 91 L 03/03/19 21:45 98.3 F 66 20 146/73 93 L 03/03/19 20:54 68 03/03/19 20:40 66 95 Intake and Output 03/04/19 03/04/1919 06:59 14:59 22:59 Intake Total 840 Balance 840 Intake: Oral 840 Other: Voiding Method Toilet # Voids 1 # Bowel Movements 0 GENERAL EXAM: Alert, pleasant, 73-year-old white male, comfortable in no apparent distress. HEAD: Normocephalic/atraumatic. EYES: Normal reaction of pupils, equal size. Conjunctiva pink, sclera white. NOSE: Clear with pink turbinates. THROAT: No erythema or exudates. NECK: No masses, no JVD, no thyroid enlargement, no adenopathy. CHEST: No chest wall deformity. Symmetrical expansion. LUNGS: Equal air entry with scattered wheezes, rhonchi or dullness. CVS: Regular rate and rhythm, normal S1 and S2, no gallops, no murmurs, no rubs ABDOMEN: Soft, nontender. No hepatosplenomegaly, normal bowel sounds, no guarding or rigidity. EXTREMITIES: No clubbing, no edema, no cyanosis, 2+ pulses and upper and lower extremities. MUSCULOSKELETAL: Muscle strength and tone normal. SPINE: No scoliosis or deformity SKIN: No rashes CENTRAL NERVOUS SYSTEM: Alert and oriented -3. No focal deficits, tone is normal in all 4 extremities. PSYCHIATRIC: Alert and oriented -3. Appropriate affect. Intact judgment and insight. Results - Laboratory Findings CBC and BMP: 03/04/19 06:34 03/02/19 09:24 PT/INR, D-dimer PT 10.3 sec (9.0-12.0) 03/02/19 09:24 INR 1.0 (<1.2) 03/02/19 09:24 Abnormal lab findings: Abnormal Labs 03/02/19 03/02/19 03/02/19 09:24 09:24 09:24 WBC 17.9 H Neutrophils # 13.9 H Neutrophils # (Manual) APTT VBG pCO2 VBG HCO3 Carbon Dioxide 32 H Glucose 108 H POC Glucose (mg/dL) ALT 16 L Troponin I 0.044 H* 03/02/19 03/02/19 03/02/19 09:24 16:18 21:12 WBC Neutrophils # Neutrophils # (Manual) APTT 30.1 H VBG pCO2 57 H VBG HCO3 30 H Carbon Dioxide Glucose POC Glucose (mg/dL) 291 H ALT Troponin I 06/03/03/19 03/03/19 05:23 05:23 06:11 WBC 24.9 H Neutrophils # 22.7 H Neutrophils # (Manual) APTT 32.6 H VBG pCO2 VBG HCO3 Carbon Dioxide Glucose POC Glucose (mg/dL) 113 H ALT Troponin I 03/03/19 03/03/19 03/03/19 12:09 17:00 21:14 WBC Neutrophils # Neutrophils # (Manual) APTT VBG pCO2 VBG HCO3 Carbon Dioxide Glucose POC Glucose (mg/dL) 168 H 173 H 181 H ALT Troponin I 03/04/19 03/04/19 03/04/19 06:12 06:34 11:59 WBC 30.7 H Neutrophils # Neutrophils # (Manual) 27.30 H APTT VBG pCO2 VBG HCO3 Carbon Dioxide Glucose POC Glucose (mg/dL) 156 H 175 H ALT Troponin I 03/04/19 16:40 WBC Neutrophils # Neutrophils # (Manual) APTT VBG pCO2 VBG HCO3 Carbon Dioxide Glucose POC Glucose (mg/dL) 140 H ALT Troponin I - Diagnostic Findings Chest x-ray: report reviewed, image reviewed Additional studies: EKG and echocardiogram reviewed Assessment and Plan Plan: Assessment: #1. Acute dyspnea, related to exacerbation of COPD and tracheobronchitis #2. Elevated troponins, EKG was negative for any acute ST to T wave changes, no complaints of chest pain #3. Cardiomyopathy of unknown etiology #4. Hypertension #5. 60 year -pack-year smoking history #6. History of anxiety/depression, PTSD #7. Leukocytosis Plan: Chest x-ray has been reviewed, no clear evidence of pneumonia, continue neb ulized bronchodilators, and tinea Zithromax, Mucinex, IV steroids, a cardiogram EKG has been reviewed and ALLERGY consultation was noted. Patient is improving. Reading easier, less bronchospastic. I performed a history & physical examination of the patient and discussed their management with my nurse practitioner, Nishi Mas. I reviewed the nurse practitioner's note and agree with the documented findings and plan of care. Lung sounds are positive for scattered wheezes. The findings and the impression was discussed with the patient. I attest to the documentation by the nurse practitioner. Time with Patient: Greater than 30
[2019-03-04 21:30] LABS: Glucose,Whole Blood 162 mg/dL (75-99)
[2019-03-04] MEDS: PARoxetine 20 MG TAB PO SCH (22:31)
[2019-03-04] MEDS: QUEtiapine 50 MG TAB PO SCH (22:31)
[2019-03-04] MEDS: PRAZOSIN 1 MG CAP PO SCH (22:32)
[2019-03-05] MEDS: IPRATROPIUM-ALBUTEROL 3 ML NEB INHALATION SCH ×6 (03:51→23:19)
[2019-03-05 06:11] LABS: Glucose,Whole Blood 135 mg/dL (75-99)
[2019-03-05] MEDS: INSULIN ASPART (NovoLOG) 100 UNIT/ML VIAL SQ SCH ×4 (06:35→21:18)
[2019-03-05 07:18] LABS: Basophils % (A) 0 %; Eosinophils # (A) 0.1 k/uL (0-0.7); Eosinophils % (A) 0 %; HCT 41.6 % (39.0-53.0); Hypochromasia Slight; Lymphocytes # (A) 1.2 k/uL (1.0-4.8); Lymphocytes % (A) 5 %; MCH 29.3 pg (25.0-35.0); MCHC 31.3 g/dL (31.0-37.0); MCV 93.6 fL (80.0-100.0); Mean Platelet Volume 8.3; Monocytes # (A) 0.7 k/uL (0-1.0); Monocytes % (A) 3 %; Neutrophils # (A) 24.2 k/uL (1.3-7.7); Neutrophils % (A) 92 %; Platelet Count 405 k/uL (150-450); RBC 4.45 m/uL (4.30-5.90); RDW 14.8 % (11.5-15.5); WBC 26.3 k/uL (3.8-10.6)
[2019-03-05 07:29] LABS: Calcium 9.4 mg/dL (8.4-10.2); Potassium 4.9 mmol/L (3.5-5.1)
[2019-03-05] MEDS: BUDESONIDE 1 MG/2 ML NEBU INHALATION SCH ×2 (08:17→20:46)
[2019-03-05] MEDS: methylPREDNISolone SOD SUCCI 40 MG/ML 1 ML VIAL IV SCH ×3 (09:05→22:45)
[2019-03-05] MEDS: ENOXAPARIN 40 MG/0.4 ML SYRINGE SQ SCH (09:06)
[2019-03-05] MEDS: guaiFENesin 600 MG TABLET.ER PO SCH ×2 (09:06→20:36)
[2019-03-05] MEDS: METOPROLOL TARTRATE 25 MG TAB PO SCH ×2 (09:07→20:36)
[2019-03-05] MEDS: ASPIRIN 81 MG PO SCH (09:07)
[2019-03-05] MEDS: LOSARTAN 25 MG TAB PO SCH (09:07)
[2019-03-05] MEDS: AZITHROMYCIN 500 MG TAB PO SCH (09:07)
[2019-03-05 12:20] LABS: Glucose,Whole Blood 189 mg/dL (75-99)
--- NOTE | 2019-03-05 15:35 | P.PN ---
Subjective Progress Note Date: 03/05/19 Principal diagnosis: Dyspnea, cough This is a 73-year-old white male patient of Dr. Grant, with past medical history of COPD unknown severity, on no home oxygen, morbid obesity, former smoker, anxiety, depression, PTSD syndrome, presented to the hospital on 03/02/2019 with complaints of 2 weeks worth of dyspnea, cough and congestion. Bringing up a light green colored phlegm. No fever or chills, patient states that he has nighttime sweating, he thinks this may be related to his history of PTSD. No hemoptysis, no chest pain, no lower extremity swelling, no orthopnea, no paroxysmal nocturnal dyspnea. Patient did have some palpitations, abdominal pain, nausea or vomiting. He has never seen a certification and selection specialist in the past. Chest x-ray was completed showing mild interstitial prominence suggesting a possibility of congestive heart failure or atypical pneumonia, and a small left pleural effusion. Patient has been afebrile while inpatient, room air pulse ox is 95%. Labs on admission showed white blood cell, 17.9, hemoglobin of 14.4, INR is 1.0, serum sodium was 142, potassium is 4.5, chloride is 102, CO2 is 32, BUN is 17, creatinine was 0.98, troponins were 0.044, 0.019, and 0.020. BNP is 875. EKG showed sinus mechanism with frequent PACs and PVCs, no ST or T-wave changes. Echocardiogram revealed EF of 40-45% with mild mitral regurgitation and mild pulmonary hypertension. He quit smoking a couple weeks ago, carries a [id number] smoking history. Has been evaluated by cardiology, and has been started on beta blockers, arms, and aspirin. Started on Zithromax, neb last Vicodin is an IV steroids, and he is improved on today's exam. On 03/05/2019 patient has been seen in follow-up on [facility] of care unit, he is awake and alert, in no acute distress, still dyspneic, still bronchospastic on today's exam, but no acute distress, room air pulse ox is 96%, patient is afebrile, hemodynamically stable, no complaints of chest pain. Lung sounds are positive for some scattered rhonchi, patient remains in sinus rhythm with frequent PACs, today's blood work has been reviewed, white blood cell count is trending down, down to 26.3, hemoglobin is 13.0, electrolytes are within normal limits, BUN was 34, and creatinine is 1.03. No acute events overnight. Blood culture showed no growth. Patient remains on nebulized bronchodilators, IV steroids, Mucinex, and antibiotics Objective - Vital Signs Vital signs: Vital Signs Temp 97.7 F 03/05/19 04:52 Pulse 60 03/05/19 12:02 Resp 16 03/05/19 14:58 BP 154/68 03/05/19 12:00 Pulse Ox 96 03/05/19 12:00 Intake & Output 03/04/19 03/05/19 03/05/19 18:59 06:59 18:59 Intake Total 840 240 840 Balance 840 240 840 Weight 110.9 kg Intake: Oral 840 240 840 Other: Voiding Method Toilet Toilet Toilet # Voids 1 1 # Bowel Movements 0 0 - Exam GENERAL EXAM: Alert, pleasant, 73-year-old white male, comfortable in no apparent distress. HEAD: Normocephalic/atraumatic. EYES: Normal reaction of pupils, equal size. Conjunctiva pink, sclera white. NOSE: Clear with pink turbinates. THROAT: No erythema or exudates. NECK: No masses, no JVD, no thyroid enlargement, no adenopathy. CHEST: No chest wall deformity. Symmetrical expansion. LUNGS: Equal air entry with scattered wheezes, rhonchi but no dullness. CVS: Regular rate and rhythm, normal S1 and S2, no gallops, no murmurs, no rubs ABDOMEN: Soft, nontender. No hepatosplenomegaly, normal bowel sounds, no guarding or rigidity. EXTREMITIES: No clubbing, no edema, no cyanosis, 2+ pulses and upper and lower extremities. MUSCULOSKELETAL: Muscle strength and tone normal. SPINE: No scoliosis or deformity SKIN: No rashes CENTRAL NERVOUS SYSTEM: Alert and oriented -3. No focal deficits, tone is normal in all 4 extremities. PSYCHIATRIC: Alert and oriented -3. Appropriate affect. Intact judgment and insight. - Labs CBC & Chem 7: 03/05/19 05:42 03/05/19 05:42 Labs: Abnormal Lab Results - Last 24 Hours (Table) 03/04/19 03/04/19 03/05/19 Range/Units 16:40 21:28 05:42 WBC 26.3 H (3.8-10.6) k/uL Neutrophils # 24.2 H (1.3-7.7) k/uL BUN (9-20) mg/dL Glucose (74-99) mg/dL POC Glucose (mg/dL) 140 H 162 H (75-99) mg/dL 03/05/19 03/05/19 03/05/19 Range/Units 05:42 06:09 12:12 WBC (3.8-10.6) k/uL Neutrophils # (1.3-7.7) k/uL BUN 34 H (9-20) mg/dL Glucose 138 H (74-99) mg/dL POC Glucose (mg/dL) 135 H 189 H (75-99) mg/dL Assessment and Plan Plan: Assessment: #1. Acute dyspnea, related to exacerbation of COPD and tracheobronchitis #2. Elevated troponins, EKG was negative for any acute ST to T wave changes, no complaints of chest pain #3. Cardiomyopathy of unknown etiology #4. Hypertension #5. 60 year -pack-year smoking history #6. History of anxiety/depression, PTSD #7. Leukocytosis Plan: Continue current medical treatment, continue with IV steroids, nebulized br onchodilator's, and empiric antibiotics, no fever or chills, maintaining good saturations on room air. We'll continue to follow along with cardiology, patient will need outpatient follow-up in the pulmonary office to quantify his underlying lung function. She also has a new diagnosis of cardiomyopathy, with unknown etiology, the patient is being followed by cardiology. I performed a history & physical examination of the patient and discussed their management with my nurse practitioner, Nishi Mas. I reviewed the nurse practitioner's note and agree with the documented findings and plan of care. Lung sounds are positive for scattered wheezes. The findings and the impression was discussed with the patient. I attest to the documentation by the nurse practitioner. Time with Patient: Less than 30
--- NOTE | 2019-03-05 16:05 | P.PN ---
Subjective Very pleasant 73-year-old female comes in for shortness of breath and cough. He was diagnosed with COPD exacerbation. Patient was started on steroids, breathing treatments. His troponins were elevated he was initially started on heparin drip which was DC'd by cardiology. On 03/04/2019 Patient says that he still short of breath and is coughing which is productive of phlegm No chest pain racing heart No abdominal pain, nausea and vomiting, or diarrhea constipation 03/05/2019 Patient says that his shortness of breath is better but still wheezing No chest pain racing heart No abdominal pain no nausea and vomiting Objective - Vital Signs Vital signs: Vital Signs Temp 97.7 F 03/05/19 04:52 Pulse 60 03/05/19 12:02 Resp 16 03/05/19 14:58 BP 154/68 03/05/19 12:00 Pulse Ox 96 03/05/19 12:00 Intake & Output 03/04/19 03/05/19 03/05/19 18:59 06:59 18:59 Intake Total 840 240 840 Balance 840 240 840 Weight 110.9 kg Intake: Oral 840 240 840 Other: Voiding Method Toilet Toilet Toilet # Voids 1 1 # Bowel Movements 0 0 - Exam On exam, alert and oriented x3. HEENT: Conjunctivae normal. eyes normal. NECK: No JVD. No thyroid enlargement. No LNs CARDIOVASCULAR: S1-S2 positive RESPIRATION: Patient was having coarse breath sounds bilaterally posteriorly ABDOMEN: Soft, nontender . No guarding. no masses palpable. No ascites, No hepatosplenomegaly.Bowel sounds heard. LEGS: No edema. no swelling NERVOUS SYSTEM: Cranial N 2-12 grossly normal. Moves all 4 limbs. No focal deficits. No sensory deficit. No signs of cerebellar dysfucntion. Skin: no ulcer no rash - Labs CBC & Chem 7: 03/05/19 05:42 03/05/19 05:42 Labs: Abnormal Lab Results - Last 24 Hours (Table) 03/04/19 03/04/19 03/05/19 Range/Units 16:40 21:28 05:42 WBC 26.3 H (3.8-10.6) k/uL Neutrophils # 24.2 H (1.3-7.7) k/uL BUN (9-20) mg/dL Glucose (74-99) mg/dL POC Glucose (mg/dL) 140 H 162 H (75-99) mg/dL 03/05/19 03/05/19 03/05/19 Range/Units 05:42 06:09 12:12 WBC (3.8-10.6) k/uL Neutrophils # (1.3-7.7) k/uL BUN 34 H (9-20) mg/dL Glucose 138 H (74-99) mg/dL POC Glucose (mg/dL) 135 H 189 H (75-99) mg/dL Assessment and Plan Assessment: - Acute severe COPD exacerbation in the current smoker - Troponin elevation - Chronic nicotine dependence. Cigarette smoker - Anxiety depression not otherwise specified - Multiple PACs, symptomatic - cardiomyopathy with EF of 40-45% from underlying hypertensive heart disease - Hypertensive heart disease Plan 03/04/2019 - Continue steroids, breathing treatments. Pulmonology consulted waiting recommendations from pulmonology - Cardiology consulted for elevated tropes. The patient recommendations. Tropes trending down. Echo ordered - Continue rest of the medical care - Follow the patient - Patient has leukocytosis probably related to steroids we will repeat the CBC in the morning 03/05/2019 - Continue breathing treatment steroids as per pulmonology recommendations - Cardiology following the patient - Continue rest of the medical care - We'll monitor
[2019-03-05 16:57] LABS: Glucose,Whole Blood 181 mg/dL (75-99)
--- NOTE | 2019-03-05 16:57 | PN ---
PROGRESS NOTE DATE OF SERVICE: Mr. Zarate has decreased LV function, COPD with exacerbation. However, he is doing better today. He has his health care at the [facility]. Vitals are stable. He has JVD of 1 cm. No carotid bruit. S1, S2 heard normally. Lungs reveal improved air entry. Abdomen and lower extremity exam unchanged. Plan is to continue current medications, increase activity. His troponin elevation does not suggest myocardial injury. I am recommending that he should have follow-up care at [place] as he is always having and advised to have a cardiology evaluation as well. 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 MMODL / IJN: [id number] /
[2019-03-05] MEDS: PRAZOSIN 1 MG CAP PO SCH (20:36)
[2019-03-05] MEDS: PARoxetine 20 MG TAB PO SCH (20:36)
[2019-03-05] MEDS: QUEtiapine 50 MG TAB PO SCH (20:36)
[2019-03-05 20:48] LABS: Glucose,Whole Blood 227 mg/dL (75-99)
[2019-03-06] MEDS: IPRATROPIUM-ALBUTEROL 3 ML NEB INHALATION SCH ×6 (03:34→23:56)
[2019-03-06 05:48] LABS: Glucose,Whole Blood 151 mg/dL (75-99)
[2019-03-06 05:56] LABS: Basophils # (A) 0.1 k/uL (0-0.2); Basophils % (A) 0 %; Eosinophils # (A) 0.2 k/uL (0-0.7); Eosinophils % (A) 1 %; HCT 44.1 % (39.0-53.0); HGB 13.7 gm/dL (13.0-17.5); Hypochromasia Slight; Lymphocytes # (A) 1.2 k/uL (1.0-4.8); Lymphocytes % (A) 5 %; MCH 29.2 pg (25.0-35.0); MCV 94.2 fL (80.0-100.0); Monocytes # (A) 0.6 k/uL (0-1.0); Monocytes % (A) 3 %; Neutrophils # (A) 20.4 k/uL (1.3-7.7); Neutrophils % (A) 90 %; Platelet Count 401 k/uL (150-450); RBC 4.68 m/uL (4.30-5.90); RDW 14.2 % (11.5-15.5); WBC 22.5 k/uL (3.8-10.6)
[2019-03-06] MEDS: INSULIN ASPART (NovoLOG) 100 UNIT/ML VIAL SQ SCH ×4 (06:15→21:42)
[2019-03-06 06:16] LABS: Calcium 9.4 mg/dL (8.4-10.2)
[2019-03-06] MEDS: LOSARTAN 25 MG TAB PO SCH (08:41)
[2019-03-06] MEDS: guaiFENesin 600 MG TABLET.ER PO SCH ×2 (08:41→21:42)
[2019-03-06] MEDS: AZITHROMYCIN 500 MG TAB PO SCH (08:41)
[2019-03-06] MEDS: METOPROLOL TARTRATE 25 MG TAB PO SCH ×2 (08:41→21:42)
[2019-03-06] MEDS: ASPIRIN 81 MG PO SCH (08:41)
[2019-03-06] MEDS: methylPREDNISolone SOD SUCCI 40 MG/ML 1 ML VIAL IV SCH ×3 (08:41→23:26)
[2019-03-06] MEDS: ENOXAPARIN 40 MG/0.4 ML SYRINGE SQ SCH (08:41)
[2019-03-06] MEDS: BUDESONIDE 1 MG/2 ML NEBU INHALATION SCH ×2 (08:52→20:45)
--- NOTE | 2019-03-06 11:14 | PN ---
PROGRESS NOTE Mr. Zarate is a 73-year-old male who presented with symptoms of progressive dyspnea, cough, productive of greenish sputum. He has some chest discomfort with walking and deep breathing. He denies any dizziness or palpitation. He is lying supine without any difficulty. He underwent an echocardiogram that revealed an ejection fraction of 40% to 45% with no reported segmental wall motion abnormality. The patient had a history of smoking until recently when he started to complain of the symptoms. He has no prior cardiac history. He continues to be at this time on aspirin once a day, losartan 25 mg daily, metoprolol tartrate 25 mg twice a day. PHYSICAL EXAMINATION: Blood pressure 126/60 with the heart rate in the 60s. LUNGS: With decreased air exchange, no wheezes. HEART: Regular rate and rhythm. S1, S2. No S3. No rub appreciated. ABDOMEN: Soft, obese, nontender. EXTREMITIES: No edema. LAB DATA: Lab data revealed BUN and creatinine 38 and 1.1. Potassium 5.0. White blood cell of 22.5, hemoglobin is 13.7. IMPRESSION: 1. Exacerbation of chronic obstructive lung disease. 2. Cardiomyopathy of unclear etiology. 3. Mild chest discomfort has some atypical features for ischemic heart disease. 4. Prior history of smoking. 5. History of anxiety. RECOMMENDATION: I will add to his regimen isosorbide mononitrate. Continue rest of his medical regimen. Increase his level activity. The patient will need to be followed as an outpatient. Once his pulmonary status stabilizes, then further cardiac workup will be needed either by the angiography or stress testing. MMODL / IJN: [id number] /
[2019-03-06] MEDS: ISOSORBIDE MONONITRATE ER 30 MG TAB.ER.24H PO SCH (12:16)
[2019-03-06 12:50] LABS: Glucose,Whole Blood 138 mg/dL (75-99)
--- NOTE | 2019-03-06 14:12 | P.PN ---
Subjective Very pleasant 73-year-old female comes in for shortness of breath and cough. He was diagnosed with COPD exacerbation. Patient was started on steroids, breathing treatments. His troponins were elevated he was initially started on heparin drip which was DC'd by cardiology. On 03/04/2019 Patient says that he still short of breath and is coughing which is productive of phlegm No chest pain racing heart No abdominal pain, nausea and vomiting, or diarrhea constipation 03/05/2019 Patient says that his shortness of breath is better but still wheezing No chest pain racing heart No abdominal pain no nausea and vomiting 03/06/2019 Patient shortness of breath is better No chest pain or racing heart Objective - Vital Signs Vital signs: Vital Signs Temp 98.2 F 03/06/19 04:00 Pulse 48 L 03/06/19 12:00 Resp 16 03/06/19 12:00 BP 124/79 03/06/19 12:00 Pulse Ox 95 03/06/19 12:00 Intake & Output 03/05/19 03/06/19 03/06/19 18:59 06:59 18:59 Intake Total 840 240 Balance 840 240 Weight 115.8 kg Intake: Oral 840 240 Other: Voiding Method Toilet Toilet # Voids 1 1 1 # Bowel Movements 0 - Exam On exam, alert and oriented x3. HEENT: Conjunctivae normal. eyes normal. NECK: No JVD. No thyroid enlargement. No LNs CARDIOVASCULAR: S1-S2 positive RESPIRATION: Patient wheezing has improved. Minimal wheezing at this time ABDOMEN: Soft, nontender . No guarding. no masses palpable. No ascites, No hepatosplenomegaly.Bowel sounds heard. LEGS: No edema. no swelling NERVOUS SYSTEM: Cranial N 2-12 grossly normal. Moves all 4 limbs. No focal deficits. No sensory deficit. No signs of cerebellar dysfucntion. Skin: no ulcer no rash - Labs CBC & Chem 7: 03/06/19 05:41 03/06/19 05:41 Labs: Abnormal Lab Results - Last 24 Hours (Table) 03/05/19 03/05/19 03/06/19 Range/Units 16:34 20:46 05:41 WBC 22.5 H (3.8-10.6) k/uL Neutrophils # 20.4 H (1.3-7.7) k/uL BUN (9-20) mg/dL Glucose (74-99) mg/dL POC Glucose (mg/dL) 181 H 227 H (75-99) mg/dL 03/06/19 03/06/19 03/06/19 Range/Units 05:41 05:47 11:54 WBC (3.8-10.6) k/uL Neutrophils # (1.3-7.7) k/uL BUN 38 H (9-20) mg/dL Glucose 163 H (74-99) mg/dL POC Glucose (mg/dL) 151 H 138 H (75-99) mg/dL Assessment and Plan Assessment: - Acute severe COPD exacerbation in the current smoker - Troponin elevation - Chronic nicotine dependence. Cigarette smoker - Anxiety depression not otherwise specified - Multiple PACs, symptomatic - cardiomyopathy with EF of 40-45% from underlying hypertensive heart disease - Hypertensive heart disease Plan 03/04/2019 - Continue steroids, breathing treatments. Pulmonology consulted waiting recommendations from pulmonology - Cardiology consulted for elevated tropes. The patient recommendations. Tropes trending down. Echo ordered - Continue rest of the medical care - Follow the patient - Patient has leukocytosis probably related to steroids we will repeat the CBC in the morning 03/05/2019 - Continue breathing treatment steroids as per pulmonology recommendations - Cardiology following the patient - Continue rest of the medical care - We'll monitor 03/06/2019 - Continue breathing treatments and steroids - Continue rest and medical care - We'll follow the patient
--- NOTE | 2019-03-06 14:24 | P.PN ---
Subjective Progress Note Date: 03/06/19 Principal diagnosis: Acute exacerbation of chronic obstructive pulmonary disease. This is a 73-year-old white male patient of Dr. Grant, with past medical history of COPD unknown severity, on no home oxygen, morbid obesity, former smoker, anxiety, depression, PTSD syndrome, presented to the hospital on 03/02/2019 with complaints of 2 weeks worth of dyspnea, cough and congestion. Bringing up a light green colored phlegm. No fever or chills, patient states that he has nighttime sweating, he thinks this may be related to his history of PTSD. No hemoptysis, no chest pain, no lower extremity swelling, no orthopnea, no paroxysmal nocturnal dyspnea. Patient did have some palpitations, abdominal pain, nausea or vomiting. He has never seen a budget specialist in the past. Chest x-ray was completed showing mild interstitial prominence suggesting a possibility of congestive heart failure or atypical pneumonia, and a small left pleural effusion. Patient has been afebrile while inpatient, room air pulse ox is 95%. Labs on admission showed white blood cell, 17.9, hemoglobin of 14.4, INR is 1.0, serum sodium was 142, potassium is 4.5, chloride is 102, CO2 is 32, BUN is 17, creatinine was 0.98, troponins were 0.044, 0.019, and 0.020. BNP is 875. EKG showed sinus mechanism with frequent PACs and PVCs, no ST or T-wave changes. Echocardiogram revealed EF of 40-45% with mild mitral regurgitation and mild pulmonary hypertension. He quit smoking a couple weeks ago, carries a [id number] smoking history. Has been evaluated by cardiology, and has been started on beta blockers, arms, and aspirin. Started on Zithromax, neb last Vicodin is an IV steroids, and he is improved on today's exam. On 03/05/2019 patient has been seen in follow-up on [facility] care unit, he is awake and alert, in no acute distress, still dyspneic, still bronchospastic on today's exam, but no acute distress, room air pulse ox is 96%, patient is afebrile, hemodynamically stable, no complaints of chest pain. Lung sounds are positive for some scattered rhonchi, patient remains in sinus rhythm with frequent PACs, today's blood work has been reviewed, white blood cell count is t rending down, down to 26.3, hemoglobin is 13.0, electrolytes are within normal limits, BUN was 34, and creatinine is 1.03. No acute events overnight. Blood culture showed no growth. Patient remains on nebulized bronchodilators, IV steroids, Mucinex, and antibiotics. Patient is seen today 03/06/2019 in follow-up on the selective care unit. He is currently sitting up in bed. Awake and alert in no acute distress. No worsening shortness of breath, cough or congestion. Sedating much back to his baseline. He is maintaining good O2 saturations in the mid 90s on room air. He's been afebrile. Hemodynamically stable. The cultures are pending. White count 22.5. Hemoglobin 13.7. Creatinine 1.11. He has been maintained on DuoNeb inhalations, Pulmicort and Perforomist inhalations, IV Solu-Medrol. Objective - Vital Signs Vital signs: Vital Signs Temp 98.2 F 03/06/19 04:00 Pulse 48 L 03/06/19 12:00 Resp 16 03/06/19 12:00 BP 124/79 03/06/19 12:00 Pulse Ox 95 03/06/19 12:00 Intake & Output 03/05/19 03/06/19 03/06/19 18:59 06:59 18:59 Intake Total 840 240 Balance 840 240 Weight 115.8 kg Intake: Oral 840 240 Other: Voiding Method Toilet Toilet # Voids 1 1 1 # Bowel Movements 0 - Exam GENERAL EXAM: Alert, pleasant, 73-year-old male patient, comfortable in no apparent distress. On room air. HEAD: Normocephalic/atraumatic. EYES: Normal reaction of pupils, equal size. Conjunctiva pink, sclera white. NOSE: Clear with pink turbinates. THROAT: No erythema or exudates. NECK: No masses, no JVD, no thyroid enlargement, no adenopathy. CHEST: No chest wall deformity. Symmetrical expansion. LUNGS: Equal air entry with faint end expiratory wheeze but no dullness. CVS: Regular rate and rhythm, normal S1 and S2, no gallops, no murmurs, no rubs ABDOMEN: Soft, nontender. No hepatosplenomegaly, normal bowel sounds, no guarding or rigidity. EXTREMITIES: No clubbing, no edema, no cyanosis, 2+ pulses and upper and lower extremities. MUSCULOSKELETAL: Muscle strength and tone normal. SPINE: No scoliosis or deformity SKIN: No rashes CENTRAL NERVOUS SYSTEM: No focal deficits, tone is normal in all 4 extremities. PSYCHIATRIC: Alert and oriented -3. Appropriate affect. Intact judgment and insight. - Labs CBC & Chem 7: 03/06/19 05:41 03/06/19 05:41 Labs: Abnormal Lab Results - Last 24 Hours (Table) 03/05/19 03/05/19 03/06/19 Range/Units 16:34 20:46 05:41 WBC 22.5 H (3.8-10.6) k/uL Neutrophils # 20.4 H (1.3-7.7) k/uL BUN (9-20) mg/dL Glucose (74-99) mg/dL POC Glucose (mg/dL) 181 H 227 H (75-99) mg/dL 03/06/19 03/06/19 03/06/19 Range/Units 05:41 05:47 11:54 WBC (3.8-10.6) k/uL Neutrophils # (1.3-7.7) k/uL BUN 38 H (9-20) mg/dL Glucose 163 H (74-99) mg/dL POC Glucose (mg/dL) 151 H 138 H (75-99) mg/dL Assessment and Plan Assessment: Assessment: #1. Acute dyspnea, related to exacerbation of COPD and tracheobronchitis #2. Elevated troponins, EKG was negative for any acute ST to T wave changes, no complaints of chest pain #3. Cardiomyopathy of unknown etiology #4. Hypertension #5. 60 year -pack-year smoking history #6. History of anxiety/depression, PTSD #7. Leukocytosis Plan: The patient was seen and evaluated by Dr. Laws. He is currently stable from the pulmonary standpoint. He did complete a course of antibiotics. Complete a prednisone taper. Continue with DuoNeb inhalations and Symbicort. Follow-up in our office in 1-2 weeks' time where we could perform full pulmonary function testing to evaluate the severity of his suspected COPD. He is again educated regarding the importance of complete smoking cessation. I, the cosigning physician, performed a history & physical examination of the patient. Lungs sounds with faint end expiratory wheeze. Maintaining good O2 saturations in the 90s on room air. I discussed the assessment and plan of care with my nurse practitioner, Daisha Pierson. I attest to the above note as dictated by her.
[2019-03-06 16:45] LABS: Glucose,Whole Blood 245 mg/dL (75-99)
[2019-03-06 21:33] LABS: Glucose,Whole Blood 206 mg/dL (75-99)
[2019-03-06] MEDS: PRAZOSIN 1 MG CAP PO SCH (21:40)
[2019-03-06] MEDS: PARoxetine 20 MG TAB PO SCH (21:40)
[2019-03-06] MEDS: QUEtiapine 50 MG TAB PO SCH (21:40)
[2019-03-07] MEDS: IPRATROPIUM-ALBUTEROL 3 ML NEB INHALATION SCH ×3 (03:03→11:09)
[2019-03-07 06:15] LABS: Glucose,Whole Blood 152 mg/dL (75-99)
[2019-03-07] MEDS: INSULIN ASPART (NovoLOG) 100 UNIT/ML VIAL SQ SCH ×2 (06:16→12:10)
[2019-03-07 06:18] LABS: Basophils # (A) 0.1 k/uL (0-0.2); Basophils % (A) 1 %; Eosinophils # (A) 0.2 k/uL (0-0.7); Eosinophils % (A) 1 %; HCT 42.5 % (39.0-53.0); HGB 13.3 gm/dL (13.0-17.5); Lymphocytes # (A) 1.4 k/uL (1.0-4.8); Lymphocytes % (A) 6 %; MCH 28.8 pg (25.0-35.0); MCHC 31.2 g/dL (31.0-37.0); MCV 92.3 fL (80.0-100.0); Mean Platelet Volume 8.1; Monocytes # (A) 0.8 k/uL (0-1.0); Monocytes % (A) 4 %; Neutrophils # (A) 19.8 k/uL (1.3-7.7); Neutrophils % (A) 88 %; Platelet Count 381 k/uL (150-450); RDW 13.9 % (11.5-15.5); WBC 22.5 k/uL (3.8-10.6)
[2019-03-07] MEDS: BUDESONIDE 1 MG/2 ML NEBU INHALATION SCH (07:35)
[2019-03-07 09:27] VITALS: TEMP 98.1
--- NOTE | 2019-03-07 10:43 | PN ---
PROGRESS NOTE Mr. Zarate is a 73-year-old male who presented with symptoms of progressive dyspnea and exacerbation of chronic obstructive pulmonary disease. He had evidence of moderate cardiomyopathy by echocardiogram with no segmental wall motion abnormality. He is feeling better today. His breathing is breathing is better. He is ambulating. He still has some dyspnea on exertion, but much better. No chest discomfort. No dizziness. No palpitation. His cough is better. He continues to be at this time on aspirin once a day, isosorbide mononitrate 30 mg daily, losartan 25 mg daily, metoprolol tartrate 25 mg twice a day and 25 mg daily. PHYSICAL EXAMINATION: Blood pressure 127/60 with a heart rate in the 60s. Lungs with decreased air exchange. No wheezes. HEART: Regular rate and rhythm S1, S2. No S3 with no rub. ABDOMEN: Soft, nontender. EXTREMITIES: No edema. LAB DATA: Lab data revealed a hemoglobin of 13.3. Platelets count of 381. IMPRESSION: 1. Exacerbation of chronic obstructive pulmonary disease. Improving. 2. Moderate cardiomyopathy of unclear etiology. Further workup will be needed. 3. Episode of chest discomfort, stable. 4. History of smoking. 5. History of anxiety. RECOMMENDATIONS: From the cardiac standpoint, I will continue present therapy. Increase his level of activity. I would expect he should be able to be discharged home soon and follow as an outpatient by Dr. Ho to undergo further workup in regard to his cardiac status. MMODL / IJN: [id number] /
[2019-03-07] MEDS: AZITHROMYCIN 500 MG TAB PO SCH (10:51)
[2019-03-07] MEDS: ISOSORBIDE MONONITRATE ER 30 MG TAB.ER.24H PO SCH (10:52)
[2019-03-07] MEDS: ASPIRIN 81 MG PO SCH (10:52)
[2019-03-07] MEDS: guaiFENesin 600 MG TABLET.ER PO SCH (10:52)
[2019-03-07] MEDS: LOSARTAN 25 MG TAB PO SCH (10:52)
[2019-03-07] MEDS: METOPROLOL TARTRATE 25 MG TAB PO SCH (10:52)
[2019-03-07] MEDS: ENOXAPARIN 40 MG/0.4 ML SYRINGE SQ SCH (10:53)
[2019-03-07] MEDS: methylPREDNISolone SOD SUCCI 40 MG/ML 1 ML VIAL IV SCH (10:53)
[2019-03-07 11:48] VITALS: BP 151/96; PULSE 65; RESP 16
[2019-03-07 12:05] LABS: Glucose,Whole Blood 147 mg/dL (75-99)
--- NOTE | 2019-03-07 12:17 | P.DS ---
Providers Date of admission: 03/02/19 10:42 Expected date of discharge: 03/07/19 Attending physician: Pardeep Paz Consults: 03/02/19 10:42 Consult Physician Routine Consulting Provider: Susan Ho Consult Reason/Comments: Troponin elevation, arrhythmia Do you want consulting provider notified?: Yes 03/03/19 10:52 Consult Physician Routine Consulting Provider: Kevin Reagan Consult Reason/Comments: copd exac Do you want consulting provider notified?: Yes Primary care physician: John Grant Hospital Course: Discharge summary - Acute severe COPD exacerbation in the current smoker - Troponin elevation - Chronic nicotine dependence. Cigarette smoker - Anxiety depression not otherwise specified - Multiple PACs, symptomatic - cardiomyopathy with EF of 40-45% from underlying hypertensive heart disease - Hypertensive heart disease Hospital course Very pleasant 73-year-old female comes in for shortness of breath and cough. He was diagnosed with COPD exacerbation. Patient was started on steroids, breathing treatments. His troponins were elevated he was initially started on heparin drip which was DC'd by cardiology. Patient is followed by pulmonology and cardiology. Patient was continued on antibiotics, breathing treatments and steroids. Cardiology adjusted the medications. On 03/07/2019 Patient says that he's feeling much better. His shortness of breath and cough is improved. No chest pain or racing heart On exam, alert and oriented x3. HEENT: Conjunctivae normal. eyes normal. NECK: No JVD. No thyroid enlargement. No LNs CARDIOVASCULAR: S1-S2 positive RESPIRATION: Patient is having very mild wheezing much improved ABDOMEN: Soft, nontender . No guarding. no masses palpable. No ascites, No hepatosplenomegaly.Bowel sounds heard. LEGS: No edema. no swelling NERVOUS SYSTEM: Cranial N 2-12 grossly normal. Moves all 4 limbs. No focal deficits. No sensory deficit. No signs of cerebellar dysfucntion. Skin: no ulcer no rash We will discharge the patient on tapering dose of steroids, DuoNeb and Symbicort Patient will need to follow with pulmonology at the dates outlined in the discha rge summary below. Patient will also need to see cardiology at dates outlined in the discharge summary below Patient was counseled extensively to start smoking. He showed understanding Patient Condition at Discharge: Stable Plan - Discharge Summary Discharge Rx Participant: Yes New Discharge Prescriptions: New Aspirin 81 mg PO DAILY #30 chew Losartan [Cozaar] 25 mg PO DAILY #60 tab Ipratropium-Albuterol Nebulize [Duoneb 0.5 mg-3 mg/3 ml Soln] 3 ml INHALATION RT-Q4H PRN #60 ampul.neb PRN Reason: Shortness Of Breath Or Wheezing Isosorbide Mononitrate ER [Imdur] 30 mg PO DAILY #30 tab.er.24h Metoprolol Tartrate [Lopressor] 25 mg PO BID #60 tab guaiFENesin [Mucinex] 1,200 mg PO Q12HR #10 tablet.er predniSONE 10 mg PO DAILY #50 tab Continue Budesonide/Formoterol Fumarate [Symbicort 160-4.5 Mcg Inhaler] 2 puff INHALATION RT-BID QUEtiapine FUMARATE 50 mg PO HS Prazosin HCl 2 mg PO HS PARoxetine HCL [Paxil] 40 mg PO HS Discharge Medication List Budesonide/Formoterol Fumarate [Symbicort 160-4.5 Mcg Inhaler] 2 puff INHALATION RT-BID 03/02/19 [History] PARoxetine HCL [Paxil] 40 mg PO HS 03/02/19 [History] Prazosin HCl 2 mg PO HS 03/02/19 [History] QUEtiapine FUMARATE 50 mg PO HS 03/02/19 [History] Aspirin 81 mg PO DAILY #30 chew 03/07/19 [Rx] Ipratropium-Albuterol Nebulize [Duoneb 0.5 mg-3 mg/3 ml Soln] 3 ml INHALATION RT-Q4H PRN #60 ampul.neb 03/07/19 [Rx] Isosorbide Mononitrate ER [Imdur] 30 mg PO DAILY #30 tab.er.24h 03/07/19 [Rx] Losartan [Cozaar] 25 mg PO DAILY #60 tab 03/07/19 [Rx] Metoprolol Tartrate [Lopressor] 25 mg PO BID #60 tab 03/07/19 [Rx] guaiFENesin [Mucinex] 1,200 mg PO Q12HR #10 tablet.er 03/07/19 [Rx] predniSONE 10 mg PO DAILY #50 tab 03/07/19 [Rx] Follow up Appointment(s)/Referral(s): Susan Ho MD [STAFF PHYSICIAN] - 1 Week Kevin Reagan DO [Doctor of Osteopathic Medicine] - 1 Week John Grant MD [Primary Care Provider] - 1-2 days Patient Instructions/Handouts: COPD (Chronic Obstructive Pulmonary Disease) (DC), Pneumonia (DC)
== END 2019-03-07 14:56 | disposition home or self-care (01) | DRG 191 ==
LOC: EC 08:47 → 3SCARD 10:42
PROVIDERS: ADMIT Hospitalist; ATTEND Hospitalist
DX: J44.1 Chronic obstructive pulmonary disease with (acute) exacerbation (principal); I42.9 Cardiomyopathy, unspecified; E66.9 Obesity, unspecified; F17.210 Nicotine dependence, cigarettes, uncomplicated; F41.8 Other specified anxiety disorders; F43.10 Post-traumatic stress disorder, unspecified; I11.9 Hypertensive heart disease without heart failure; I27.20 Pulmonary hypertension, unspecified; J40 Bronchitis, not specified as acute or chronic; I49.3 Ventricular premature depolarization; R74.8 Abnormal levels of other serum enzymes; I25.9 Chronic ischemic heart disease, unspecified; T38.0X5A Adverse effect of glucocorticoids and synthetic analogues, initial encounter; Z68.39 Body mass index [BMI] 39.0-39.9, adult; Z79.51 Long term (current) use of inhaled steroids; Z79.899 Other long term (current) drug therapy; Z82.49 Family history of ischemic heart disease and other diseases of the circulatory system; Z90.89 Acquired absence of other organs; Z90.49 Acquired absence of other specified parts of digestive tract
CPT/HCPCS: 36415; 71046; 80048; 80053; 82803; 83605; 83735; 83880; 84484; 85025; 85610; 85730; 87040; 93005; 93306; 94640; 94760; 96365; 96366; 96367; 96375; 96376; 99291

== ENCOUNTER 2019-06-11 05:00 | Inpatient (IN) | payer OTHER, MEDICARE, BC ==
[2019-06-11] MEDS ORDERED: IPRATROPIUM-ALBUTEROL 3 ML NEB INHALATION STA (05:15)
[2019-06-11] MEDS ORDERED: AZITHROMYCIN 500 MG TAB PO STA (05:28)
--- NOTE | 2019-06-11 05:29 | XR ---
EXAMINATION TYPE: XR chest 1V portable DATE OF EXAM: 06/11/2019 COMPARISON: 03/02/2019 HISTORY: Dyspnea TECHNIQUE: Single frontal view of the chest is obtained. FINDINGS: There is some patchy airspace consolidation right lower lobe. There is slight blunting rig ht costophrenic angle. There is no heart failure. Heart is probably normal. There is no mediastinal adenopathy. There are ch est leads. IMPRESSION: There is right lower lobe pneumonia that is new compared to last exam. No heart failure.
[2019-06-11 05:32] LABS: Basophils # (A) 0.2 k/uL (0-0.2); Basophils % (A) 1 %; Eosinophils # (A) 0.5 k/uL (0-0.7); Eosinophils % (A) 3 %; HCT 46.6 % (39.0-53.0); HGB 14.2 gm/dL (13.0-17.5); Lymphocytes % (A) 12 %; MCH 29.9 pg (25.0-35.0); MCHC 30.4 g/dL (31.0-37.0); MCV 98.1 fL (80.0-100.0); Mean Platelet Volume 7.1; Monocytes # (A) 0.3 k/uL (0-1.0); Monocytes % (A) 2 %; Neutrophils # (A) 12.8 k/uL (1.3-7.7); Neutrophils % (A) 80 %; Platelet Count 316 k/uL (150-450); RBC 4.75 m/uL (4.30-5.90); RDW 13.7 % (11.5-15.5); WBC 15.9 k/uL (3.8-10.6)
[2019-06-11 05:43] LABS: Albumin 4.4 g/dL (3.5-5.0); Calcium 9.1 mg/dL (8.4-10.2); Potassium 4.6 mmol/L (3.5-5.1); Total Bilirubin 0.4 mg/dL (0.2-1.3); Total Protein 7.6 g/dL (6.3-8.2)
--- NOTE | 2019-06-11 05:45 | ED ---
SOB HPI - General Chief Complaint: Shortness of Breath Stated Complaint: Respiratory Distress Source: patient, EMS Mode of arrival: EMS Limitations: physical limitation (Severe dyspnea) - History of Present Illness Initial Comments: This patient is 73-year-old man with history of COPD. He is brought by ambulance to be evaluated for shortness of breath. History is limited as the patient is having severe dyspnea and only able to speak one to 2 words at a time. The patient states things came on somewhat abruptly tonight. He had been trying sleep. Patient noted he was wheezing and having trouble with breathing. Family phoned EMS who arrived to find the patient in tripod position. They placed patient on CPAP and also administered nebulized albuterol. Patient is denying chest pain. He acknowledges cough. No fevers noted. MD Complaint: shortness of breath -: hour(s) Consistency: constant Improves With: nothing Known History Of: COPD Associated Symptoms: denies other symptoms Treatments Prior to Arrival: oxygen, bronchodilator, NIPPV - Related Data Home Medications Medication Instructions Recorded Confirmed Budesonide/Formoterol Fumarate 2 puff INHALATION RT-BID 03/02/19 06/11/19 [Symbicort 160-4.5 Mcg Inhaler] PARoxetine HCL [Paxil] 40 mg PO HS 03/02/19 06/11/19 Prazosin HCl 2 mg PO HS 03/02/19 06/11/19 QUEtiapine FUMARATE 50 mg PO HS 03/02/19 06/11/19 Previous Rx's Medication Instructions Recorded Aspirin 81 mg PO DAILY #30 chew 03/07/19 Ipratropium-Albuterol Nebulize 3 ml INHALATION RT-Q4H PRN #60 03/07/19 [Duoneb 0.5 mg-3 mg/3 ml Soln] ampul.neb Isosorbide Mononitrate ER [Imdur] 30 mg PO DAILY #30 tab.er.24h 03/07/19 Losartan [Cozaar] 25 mg PO DAILY #60 tab 03/07/19 Metoprolol Tartrate [Lopressor] 25 mg PO BID #60 tab 03/07/19 Allergies Allergy/AdvReac Type Severity Reaction Status Date / Time No Known Allergies Allergy Verified 06/11/19 07:12 Review of Systems ROS Statement: Those systems with pertinent positive or pertinent negative responses have been documented in the HPI. ROS Other: All systems not noted in ROS Statement are negative. Limitations: ROS unobtainable due to patients medical condition (Severe dyspnea) Constitutional: Denies: fever Respiratory: Reports: cough, dyspnea, wheezes. Denies: hemoptysis Cardiovascular: Denies: chest pain, edema Gastrointestinal: Denies: abdominal pain, vomiting Musculoskeletal: Denies: back pain Past Medical History Past Medical History: COPD History of Any Multi-Drug Resistant Organisms: None Reported Past Surgical History: Adenoidectomy, Appendectomy, Orthopedic Surgery, Tonsillectomy Past Psychological History: Anxiety, Depression, PTSD Smoking Status: Former smoker Past Alcohol Use History: None Reported Past Drug Use History: None Reported - Past Family History Mother Family Medical History: No Reported History Father Family Medical History: Hypertension General Exam General appearance: alert, in distress, obese Head exam: Present: atraumatic, normocephalic Eye exam: Present: normal appearance. Absent: scleral icterus, conjunctival injection Neck exam: Present: normal inspection Respiratory exam: Present: respiratory distress (Tachypnea), wheezes, rales (R base), rhonchi, accessory muscle use. Absent: stridor, decreased breath sounds, prolonged expiratory Cardiovascular Exam: Present: regular rate, normal rhythm, normal heart sounds. Absent: systolic murmur, diastolic murmur, rubs, gallop GI/Abdominal exam: Present: soft. Absent: tenderness, guarding, rebound Extremities exam: Present: normal capillary refill, other (Chronic venous stasis change). Absent: normal inspection, pedal edema, calf tenderness Back exam: Present: normal inspection. Absent: CVA tenderness (R), CVA tenderness (L) Neurological exam: Present: alert Skin exam: Present: warm, dry, intact, normal color. Absent: rash Course Vital Signs 06/11/19 06/11/19 06/11/19 05:05 05:08 05:13 Temperature Pulse Rate 92 84 Pulse Rate [ Pulse Oximetery ] Respiratory 44 H 44 H Rate Blood Pressure 177/123 Blood Pressure [Left Arm] O2 Sat by Pulse 100 Oximetry 06/11/19 06/11/19 06/11/19 05:22 05:23 06:09 Temperature Pulse Rate 79 81 88 Pulse Rate [ Pulse Oximetery ] Respiratory 38 H 38 H Rate Blood Pressure 130/59 115/61 Blood Pressure [Left Arm] O2 Sat by Pulse 100 100 Oximetry 06/11/19 06/11/19 06/11/19 06:28 06:42 07:53 Temperature 99.8 F H 100.6 F H Pulse Rate 75 65 Pulse Rate [ Pulse Oximetery ] Respiratory 28 H 20 Rate Blood Pressure 111/69 120/62 Blood Pressure [Left Arm] O2 Sat by Pulse 99 98 Oximetry 06/11/19 06/11/19 06/11/19 07:55 08:00 08:09 Temperature 97.5 F L Pulse Rate 71 77 Pulse Rate [ 67 Pulse Oximetery ] Respiratory 28 H Rate Blood Pressure Blood Pressure 106/60 [Left Arm] O2 Sat by Pulse 98 Oximetry Medical Decision Making - Medical Decision Making Patient is 73-year-old man presenting with severe dyspnea. Patient is placed on the BiPAP on arrival and given additional nebulized treatment. Patient is beginning to show some improvement. His chest x-ray does appear show new right lower lobe infiltrate. Patient started on antibiotic. - Lab Data Result diagrams: 06/12/19 06:02 06/13/19 04:02 Lab Results 06/11/19 06/11/19 06/11/19 Range/Units 05:09 05:09 05:09 WBC 15.9 H (3.8-10.6) k/uL RBC 4.75 (4.30-5.90) m/uL Hgb 14.2 (13.0-17.5) gm/dL Hct 46.6 (39.0-53.0) % MCV 98.1 (80.0-100.0) fL MCH 29.9 (25.0-35.0) pg MCHC 30.4 L (31.0-37.0) g/dL RDW 13.7 (11.5-15.5) % Plt Count 316 (150-450) k/uL Neutrophils % 80 % Lymphocytes % 12 % Monocytes % 2 % Eosinophils % 3 % Basophils % 1 % Neutrophils # 12.8 H (1.3-7.7) k/uL Lymphocytes # 2.0 (1.0-4.8) k/uL Monocytes # 0.3 (0-1.0) k/uL Eosinophils # 0.5 (0-0.7) k/uL Basophils # 0.2 (0-0.2) k/uL PT (9.0-12.0) sec INR (<1.2) APTT (22.0-30.0) sec Sodium 140 (137-145) mmol/L Potassium 4.6 (3.5-5.1) mmol/L Chloride 104 (98-107) mmol/L Carbon Dioxide 25 (22-30) mmol/L Anion Gap 11 mmol/L BUN 19 (9-20) mg/dL Creatinine 1.15 (0.66-1.25) mg/dL Est GFR (CKD-EPI)AfAm 74 (>60 ml/min/1.73 sqM) Est GFR (CKD-EPI)NonAf 64 (>60 ml/min/1.73 sqM) Glucose 185 H (74-99) mg/dL Calcium 9.1 (8.4-10.2) mg/dL Total Bilirubin 0.4 (0.2-1.3) mg/dL AST 24 (17-59) U/L ALT 18 L (21-72) U/L Alkaline Phosphatase 51 (38-126) U/L Troponin I (0.000-0.034) ng/mL NT-Pro-B Natriuret Pep 1180 pg/mL Total Protein 7.6 (6.3-8.2) g/dL Albumin 4.4 (3.5-5.0) g/dL 06/11/19 06/11/19 Range/Units 05:09 05:09 WBC (3.8-10.6) k/uL RBC (4.30-5.90) m/uL Hgb (13.0-17.5) gm/dL Hct (39.0-53.0) % MCV (80.0-100.0) fL MCH (25.0-35.0) pg MCHC (31.0-37.0) g/dL RDW (11.5-15.5) % Plt Count (150-450) k/uL Neutrophils % % Lymphocytes % % Monocytes % % Eosinophils % % Basophils % % Neutrophils # (1.3-7.7) k/uL Lymphocytes # (1.0-4.8) k/uL Monocytes # (0-1.0) k/uL Eosinophils # (0-0.7) k/uL Basophils # (0-0.2) k/uL PT 10.6 (9.0-12.0) sec INR 1.0 (<1.2) APTT 23.1 (22.0-30.0) sec Sodium (137-145) mmol/L Potassium (3.5-5.1) mmol/L Chloride (98-107) mmol/L Carbon Dioxide (22-30) mmol/L Anion Gap mmol/L BUN (9-20) mg/dL Creatinine (0.66-1.25) mg/dL Est GFR (CKD-EPI)AfAm (>60 ml/min/1.73 sqM) Est GFR (CKD-EPI)NonAf (>60 ml/min/1.73 sqM) Glucose (74-99) mg/dL Calcium (8.4-10.2) mg/dL Total Bilirubin (0.2-1.3) mg/dL AST (17-59) U/L ALT (21-72) U/L Alkaline Phosphatase (38-126) U/L Troponin I 0.021 (0.000-0.034) ng/mL NT-Pro-B Natriuret Pep pg/mL Total Protein (6.3-8.2) g/dL Albumin (3.5-5.0) g/dL - EKG Data -: EKG Interpreted by Me EKG shows normal: sinus rhythm, axis (Normal), intervals (Normal), QRS complexes (Normal), ST-T waves (Normal) Rate: normal (Rate 83 bpm) Critical Care Time Critical Care Time: Yes (30 minutes) Disposition Clinical Impression: Pneumonia, COPD exacerbation Disposition: ADMITTED IP TO THIS HOSP Condition: Fair
[2019-06-11 05:47] LABS: Partial Thromboplastin Time 23.1 sec (22.0-30.0); Prothrombin Time 10.6 sec (9.0-12.0)
[2019-06-11] MEDS ORDERED: PNEUMONIA PROTOCOL UTILIZED 1 EACH MISC PO PRN (05:59)
[2019-06-11] MEDS: SODIUM CHLORIDE 0.9% 1,000 ML IV SCH ×3 (05:59→16:08)
[2019-06-11] MEDS ORDERED: ALBUTEROL NEBULIZED 2.5 MG/3 ML INHALATION PRN (05:59)
[2019-06-11] MEDS: IPRATROPIUM-ALBUTEROL 3 ML NEB INHALATION SCH ×6 (07:54→23:16)
[2019-06-11] MEDS ORDERED: SYMBICORT 160-4.5 MCG INHALER INHALATION SCH (08:00)
[2019-06-11] MEDS ORDERED: ACETAMINOPHEN TAB 500 MG TAB PO PRN (08:18)
[2019-06-11] MEDS ORDERED: predniSONE 10 MG TAB PO SCH (09:00)
[2019-06-11] MEDS: ASPIRIN 81 MG PO SCH (09:15)
[2019-06-11] MEDS: guaiFENesin 600 MG TABLET.ER PO SCH ×2 (09:15→21:13)
[2019-06-11] MEDS: METOPROLOL TARTRATE 25 MG TAB PO SCH ×2 (09:16→21:13)
[2019-06-11] MEDS: ISOSORBIDE MONONITRATE ER 30 MG TAB.ER.24H PO SCH (09:16)
[2019-06-11] MEDS: LOSARTAN 25 MG TAB PO SCH (09:16)
[2019-06-11] MEDS ORDERED: INFLUENZA VACCINE (6 MOS+) 60 MCG/0.5 ML SYRINGE IM ONE (10:22)
--- NOTE | 2019-06-11 11:51 | CONS ---
CONSULTATION PULMONARY/CRITICAL CARE CONSULTATION: 06/11/2019 This is a 73-year-old gentleman with a history of COPD. His COPD is quite severe. His FEV1 is 36% of predicted. The patient was seen in the office by myself in March. He was apparently brought into the office by EMS. His states he was profoundly short of breath. He was also coughing and had lots of chest congestion. He had severe conversational dyspnea only able to get out 1 or 2 words at a time. Because of that, EMS was called and the patient was brought into the emergency room to be evaluated. His symptoms again include shortness of breath, chest tightness, wheezing, cough, chest congestion. He was coughing up some phlegm. Apparently the patient was seen in the emergency room and admitted to the hospital with a diagnosis of COPD exacerbation and right lower lobe pneumonia. He is currently feeling much better. He is currently on the BiPAP device. That has really seemed to help him along with the other medications that were started. Again, I saw him in the office in March. He has a substantial tobacco history, which is the reason why he developed COPD. HOME MEDICATIONS: Include Symbicort 160/4.5 two puffs twice a day, Paxil, pravastatin, Seroquel, DuoNeb, Imdur, losartan, metoprolol, Mucinex, and prednisone 10 mg a day. ALLERGIES: Denied. MEDICAL HISTORY: COPD. He also appears to have hypertension. SURGICAL HISTORY: Surgical history includes adenoidectomy, appendectomy, orthopedic procedures and tonsillectomy. The patient does apparently also suffer from anxiety and depression as well as well as PTSD. SOCIAL HISTORY: Positive for substantial tobacco use in the past. Quit a couple years back. Does not smoke currently. Denies alcohol or illicit drug use. FAMILY HISTORY: Positive for a father with hypertension. REVIEW OF SYSTEMS: CONSTITUTIONAL: Negative. NEUROLOGIC: Negative. HEENT: Negative. CARDIOVASCULAR: Negative. PULMONARY: Shortness of breath, chest tightness, wheezing, cough, chest congestion and phlegm production. GI: Negative. : Negative. RHEUMATOLOGIC: Negative. IMMUNOLOGIC Negative. ENDOCRINOLOGIC: Negative. DERMATOLOGIC: Negative. PHYSICAL EXAMINATION: VITAL SIGNS: Current vital signs are reviewed, his temperature is 97.5, T-max 100.6, heart rate 77, respiratory rate 22, blood pressure 106/60, mean 75 and saturations are 98% on BiPAP at 50%. Appears in no acute distress. Has some very mild conversational dyspnea. No use of accessory muscles. No audible wheezing. HEENT: Examination is grossly unremarkable. BiPAP mask in place. NECK: Supple. Full range of motion. No adenopathy or thyromegaly. Neck veins are flat. CARDIOVASCULAR: Examination reveals regular rhythm and rate. Heart rate in the mid 70s. Heart sounds are distant. S1, S2 normal. No murmur. LUNGS: Reveal diffuse inspiratory and expiratory rhonchi and wheezes. There is prolongation. There are no crackles. Breath sounds are diminished throughout. ABDOMEN: Obese. Bowel sounds are heard. EXTREMITIES: Intact. No cyanosis, clubbing, or edema. SKIN: Without rash. NEUROLOGIC: Examination is brief but nonfocal. LABS: Reviewed. White count 15.9, hemoglobin 14.2, hematocrit 46.6, platelet count 316, 000. PT, INR, PTT all normal. Sodium, potassium, chloride, CO2 all normal. Anion gap normal. BUN and creatinine were 19 and 1.15. Glucose 185. The rest of his labs look okay including the troponins in the N terminal proBNP. Influenza studies are negative. Chest x-ray shows a right lower lobe infiltrate. Medications are reviewed. He is currently on Symbicort, Zithromax, Rocephin and DuoNeb. He is not on any acute corticosteroids. Will place him on those. ASSESSMENT: 1. Chronic obstructive pulmonary disease exacerbation complicated by purulent tracheobronchitis and bronchopneumonia right lower lobe. 2. Severe chronic obstructive pulmonary disease stage III, with an FEV1 that is 36% of predicted. 3. Previous history of heavy tobacco use. 4. History of hypertension. PLAN: Please see my orders. Will continue with the [facility]. I will add some steroids. The antibiotics are appropriate. Additional recommendations and suggestions are forthcoming. Will continue to follow until ready for discharge. Chest x-ray can be repeated in a day or so. MMODL / IJN: [id number] /
[2019-06-11 11:56] LABS: Glucose,Whole Blood 125 mg/dL (75-99)
[2019-06-11] MEDS ORDERED: NAPROXEN 250 MG TAB PO PRN (12:50)
[2019-06-11] MEDS: BUDESONIDE 1 MG/2 ML NEBU INHALATION SCH ×2 (13:13→20:51)
[2019-06-11] MEDS: methylPREDNISolone SOD SUCCI 40 MG/ML 1 ML VIAL IV SCH ×3 (13:33→23:44)
[2019-06-11] MEDS: ENOXAPARIN 40 MG/0.4 ML SYRINGE SQ SCH (13:33)
--- NOTE | 2019-06-11 16:56 | P.HPIM ---
History of Present Illness H&P Date: 06/11/19 Chief Complaint: Difficulty breathing History of presenting complaint: This is a pleasant 73-year-old patient of Dr. spears from [place]. Chronic stable medical conditions include GERD, hyperlipidemia, hypertension, home oxygen at night 2 L, cardiomyopathy EF 40-45% from hypertensive heart disease,. Patient is a heavy smoker for close to 50 years and stopped about 4 months ago. She presented one-day history of increasing shortness of breath and wheezing. Cough not able to expectorate. Having chills at home. Had a fever here. Appetite is okay. Admitted for the same. Wanted to be in severe COPD exacerbation. Started on nebulizers, bronchodilators steroids. Feeling only initiate better. Quite a bit short of breath at rest. Review of systems: GEN.: Tired EYES: None HEENT: None NECK: None RESPIRATORY: As above CARDIOVASCULAR: None GASTROINTESTINAL: None GENITOURINARY: None MUSCULOSKELETAL: None LYMPHATICS: None HEMATOLOGICAL: None PSYCHIATRY: None NEUROLOGICAL: None Social history: . Served in the [employer]. No peripheral close to 50 years a pack a day stopped 4 months ago. No alcohol. Family history: Reviewed, noncontributory to presentation Physical examination: VITAL SIGNS: 100.6, 65, 28, 11 /, 99% on BiPAP GENERAL: BMI 40.1, sitting up short of breath at rest. EYES: Pupils equal. Conjunctiva normal. HEENT: External appearance of nose and ears normal, oral cavity grossly normal. NECK: JVD not raised; masses not palpable. HEART: First and second heart sounds are normal; no edema. LUNGS: Respiratory rate increased, short of breath at rest, not able to speak in full sentences, accessory muscle working, decreased breath sounds prolonged expiration and wheezing. ABDOMEN: Soft, nontender, liver spleen not palpable, no masses palpable. PSYCH: Alert and oriented x3; mood and affect anxiousl. NEUROLOGICAL: Cranial nerves grossly intact; no facial asymmetry, power and sensation grossly intact. LYMPHATICS: No lymph nodes palpable in the axilla and neck INVESTIGATIONS, reviewed in the clinical context: White count 15.9 hemoglobin 14.2 platelets 316 potassium 4.6 bun 19 creatinine 1.15 ProBNP 1180 troponin I 0.0-1 influenza A and B both negative EKG tracing personally reviewed by me-not a good study shows sinus rhythm with some P pulmonale Chest x-ray film personally reviewed by me-right lower infiltrate Assessment: -Acute severe COPD exacerbation and an ex-smoker, POA -Right lower lobe pneumonia, suspect gram-negative organism causing sepsis, POA -Acute on chronic hypoxic respiratory failure from underlying COPD and pneumonia -GERD -Hyperlipidemia -Essential hypertension -Chronic hypoxic respiratory failure on home oxygen at night 2 L -Nonischemic cardiomyopathy EF 40-45% from hypertensive heart disease -Morbid obesity BMI 40.1 Plan: Patient be started on nebulized bronchodilators every 4 hours, IV Solu-Medrol, inhaled steroids, and BiPAP. Home medications resumed. Care was discussed with the patient. Questions were answered. Pulmonary/Dr. Henderson was consulted. Past Medical History Past Medical History: Asthma, Chest Pain / Angina, COPD, GERD/Reflux, Hyperlipidemia, Hypertension, Pneumonia, Respiratory Disorder Additional Past Medical History / Comment(s): Pt states he wears O2 at 2L/NC at HS and prn daytime, cardiomyopathy with EF 40-45% February 2019, PACs, past vertigo, pneumonias, small frequent urinations. 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 Past Anesthesia/Blood Transfusion Reactions: No Reported Reaction Smoking Status: Former smoker - Past Family History Mother Family Medical History: No Reported History Additional Family Medical History / Comment(s): Mother was healthy. She is . Father Family Medical History: Hypertension Additional Family Medical History / Comment(s): Father is . Medications and Allergies Home Medications Medication Instructions Recorded Confirmed Type Budesonide/Formoterol Fumarate 2 puff INHALATION RT-BID 03/02/19 06/11/19 History [Symbicort 160-4.5 Mcg Inhaler] PARoxetine HCL [Paxil] 40 mg PO HS 03/02/19 06/11/19 History Prazosin HCl 2 mg PO HS 03/02/19 06/11/19 History QUEtiapine FUMARATE 50 mg PO HS 03/02/19 06/11/19 History Aspirin 81 mg PO DAILY #30 chew 03/07/19 06/11/19 Rx Ipratropium-Albuterol Nebulize 3 ml INHALATION RT-Q4H PRN #60 03/07/19 06/11/19 Rx [Duoneb 0.5 mg-3 mg/3 ml Soln] ampul.neb Isosorbide Mononitrate ER [Imdur] 30 mg PO DAILY #30 tab.er.24h 03/07/19 06/11/19 Rx Losartan [Cozaar] 25 mg PO DAILY #60 tab 03/07/19 06/11/19 Rx Metoprolol Tartrate [Lopressor] 25 mg PO BID #60 tab 03/07/19 06/11/19 Rx Allergies Allergy/AdvReac Type Severity Reaction Status Date / Time No Known Allergies Allergy Verified 06/11/19 07:12 Physical Exam Vitals: Vital Signs Temp Pulse Pulse Resp BP BP Pulse Ox 06/11/19 16:25 62 18 06/11/19 16:15 56 L 18 96 06/11/19 15:51 98.3 F 50 L 22 127/77 96 06/11/19 13:36 16 95 06/11/19 13:32 80 06/11/19 13:14 78 06/11/19 11:39 97.4 F L 52 L 22 110/62 99 06/11/19 08:09 77 06/11/19 08:00 97.5 F L 67 28 H 106/60 98 06/11/19 07:55 71 06/11/19 07:53 100.6 F H 65 20 120/62 98 06/11/19 06:42 99.8 F H 06/11/19 06:28 75 28 H 111/69 99 06/11/19 06:09 88 38 H 115/61 100 06/11/19 05:23 81 06/11/19 05:22 79 38 H 130/59 100 06/11/19 05:13 44 H 06/11/19 05:08 84 44 H 177/123 100 06/11/19 05:05 92 Intake and Output 06/11/19 06/11/19 06/11/19 06:59 14:59 22:59 Intake Total 1000 Balance 1000 Intake: IV 800 Sodium Chloride 0.9% 1, 800 000 ml @ 100 mls/hr IV . Q10H WILLEM Rx#:[id number] Oral 200 Other: Weight 119.748 kg Results CBC & Chem 7: 06/11/19 05:09 06/11/19 05:09 Labs: Abnormal Lab Results - Last 24 Hours (Table) 06/11/19 06/11/19 06/11/19 Range/Units 05:09 05:09 11:54 WBC 15.9 H (3.8-10.6) k/uL MCHC 30.4 L (31.0-37.0) g/dL Neutrophils # 12.8 H (1.3-7.7) k/uL Glucose 185 H (74-99) mg/dL POC Glucose (mg/dL) 125 H (75-99) mg/dL ALT 18 L (21-72) U/L Thrombosis Risk Factor Assmnt - Choose All That Apply Any of the Below Risk Factors Present?: Yes Each Factor Represents 1 point: Abnormal pulmonary function (COPD), Obesity (BMI >25), Serious lung disease incl. pneumonia (< 1month) Other Risk Factors: Yes Each Risk Factor Represents 2 Points: Age 61-74 years Other congenital or acquired thrombophilia - If yes, enter type in comment: No Thrombosis Risk Factor Assessment Total Risk Factor Score: 5 Thrombosis Risk Factor Assessment Level: High Risk
[2019-06-11 17:26] LABS: Glucose,Whole Blood 235 mg/dL (75-99)
[2019-06-11] MEDS: INSULIN ASPART (NovoLOG) 100 UNIT/ML VIAL SQ SCH ×2 (18:27→21:12)
[2019-06-11] MEDS ORDERED: BUDESONIDE 1 MG/2 ML NEBU INHALATION SCH (20:00)
[2019-06-11 20:18] LABS: Glucose,Whole Blood 263 mg/dL (75-99)
[2019-06-11] MEDS: FORMOTEROL FUMARATE 20 MCG/2 ML NEBU INHALATION SCH (20:51)
[2019-06-11] MEDS: QUEtiapine 50 MG TAB PO SCH (21:12)
[2019-06-11] MEDS: PRAZOSIN 1 MG CAP PO SCH (21:12)
[2019-06-11] MEDS: PARoxetine 20 MG TAB PO SCH (21:13)
[2019-06-12] MEDS: IPRATROPIUM-ALBUTEROL 3 ML NEB INHALATION SCH ×5 (03:45→20:08)
[2019-06-12 06:23] LABS: Basophils % (A) 0 %; Eosinophils # (A) 0.1 k/uL (0-0.7); Eosinophils % (A) 0 %; HCT 38.6 % (39.0-53.0); HGB 11.6 gm/dL (13.0-17.5); Hypochromasia Slight; Lymphocytes % (A) 4 %; MCH 29.8 pg (25.0-35.0); MCHC 30.1 g/dL (31.0-37.0); Mean Platelet Volume 7.4; Monocytes # (A) 0.5 k/uL (0-1.0); Monocytes % (A) 2 %; Neutrophils # (A) 21.6 k/uL (1.3-7.7); Neutrophils % (A) 93 %; Platelet Count 261 k/uL (150-450); RBC 3.89 m/uL (4.30-5.90); RDW 13.7 % (11.5-15.5); WBC 23.3 k/uL (3.8-10.6)
[2019-06-12 06:24] LABS: Glucose,Whole Blood 161 mg/dL (75-99)
[2019-06-12 06:32] LABS: Calcium 9.1 mg/dL (8.4-10.2); Potassium 4.9 mmol/L (3.5-5.1)
[2019-06-12] MEDS: INSULIN ASPART (NovoLOG) 100 UNIT/ML VIAL SQ SCH ×4 (06:35→21:08)
[2019-06-12] MEDS: methylPREDNISolone SOD SUCCI 40 MG/ML 1 ML VIAL IV SCH ×3 (09:13→23:14)
[2019-06-12] MEDS: ASPIRIN 81 MG PO SCH (09:13)
[2019-06-12] MEDS: guaiFENesin 600 MG TABLET.ER PO SCH ×2 (09:13→21:10)
[2019-06-12] MEDS: ENOXAPARIN 40 MG/0.4 ML SYRINGE SQ SCH (09:14)
[2019-06-12] MEDS: AZITHROMYCIN 500 MG TAB PO SCH (09:14)
[2019-06-12] MEDS: FORMOTEROL FUMARATE 20 MCG/2 ML NEBU INHALATION SCH ×2 (09:34→20:08)
[2019-06-12] MEDS: BUDESONIDE 1 MG/2 ML NEBU INHALATION SCH ×2 (09:34→20:08)
[2019-06-12] MEDS: METOPROLOL TARTRATE 25 MG TAB PO SCH ×2 (10:07→21:10)
[2019-06-12 12:00] LABS: Glucose,Whole Blood 208 mg/dL (75-99)
--- NOTE | 2019-06-12 12:05 | P.PN ---
Subjective Progress Note Date: 06/12/19 Principal diagnosis: Acute exacerbation of chronic obstructive pulmonary disease complicated by purulent tracheobronchitis and bronchial pneumonia in the right lower lobe The patient is seen today 06/12/2019 in follow-up on the selective care unit. He is awake and alert in no acute distress. Resting comfortably in bed. Breathing a bit easier today as compared to yesterday. Still dyspneic on minimal exertion. Maintaining O2 saturations in the low 90s on 2 L/m per nasal cannula. He is afebrile. Hemodynamically stable. Blood culture reveals no growth to date. White count 23.3. Hemoglobin 11.6. Creatinine 1.59. Lactic acid 2.3. He is continued on ceftriaxone and azithromycin along with bronchodilators and IV Solu-Medrol. Lovenox for DVT prophylaxis. Objective - Vital Signs Vital signs: Vital Signs Temp 97.9 F 06/12/19 08:00 Pulse 93 06/12/19 10:04 Resp 20 06/12/19 08:00 BP 108/67 06/12/19 10:04 Pulse Ox 93 L 06/12/19 08:00 Intake & Output 06/11/19 06/12/19 06/12/19 18:59 06:59 18:59 Intake Total 1240 120 Output Total 600 200 Balance 1240 -600 -80 Weight 118.6 kg Intake: IV 800 Sodium Chloride 0.9% 1, 800 000 ml @ 100 mls/hr IV . Q10H [facility] Rx#:[id number] Oral 440 120 Output: Urine 600 200 Other: Voiding Method Urinal - Exam GENERAL EXAM: Alert, pleasant morbidly obese 73-year-old gentleman, comfortable in no apparent distress. On 2 L nasal cannula. HEAD: Normocephalic. EYES: Normal reaction of pupils, equal size. NOSE: Clear with pink turbinates. THROAT: No erythema or exudates. NECK: No masses, no JVD. CHEST: No chest wall deformity. LUNGS: Equal air entry with end expiratory wheeze, crackles in the right posterior base. CVS: S1 and S2 normal with no audible murmur, regular rhythm. ABDOMEN: No hepatosplenomegaly, normal bowel sounds, no guarding or rigidity. SPINE: No scoliosis or deformity SKIN: No rashes CENTRAL NERVOUS SYSTEM: No focal deficits, tone is normal in all 4 extremities. EXTREMITIES: There is no peripheral edema. No clubbing, no cyanosis. Peripheral pulses are intact. - Labs CBC & Chem 7: 06/12/19 06:02 06/12/19 06:02 Labs: Abnormal Lab Results - Last 24 Hours (Table) 06/11/19 06/11/19 06/12/19 Range/Units 17:25 20:16 06:02 WBC 23.3 H (3.8-10.6) k/uL RBC 3.89 L (4.30-5.90) m/uL Hgb 11.6 L (13.0-17.5) gm/dL Hct 38.6 L (39.0-53.0) % MCHC 30.1 L (31.0-37.0) g/dL Neutrophils # 21.6 H (1.3-7.7) k/uL BUN (9-20) mg/dL Creatinine (0.66-1.25) mg/dL Glucose (74-99) mg/dL POC Glucose (mg/dL) 235 H 263 H (75-99) mg/dL Plasma Lactic Acid Aashish (0.7-2.0) mmol/L 06/12/19 06/12/19 06/12/19 Range/Units 06:02 06:23 07:57 WBC (3.8-10.6) k/uL RBC (4.30-5.90) m/uL Hgb (13.0-17.5) gm/dL Hct (39.0-53.0) % MCHC (31.0-37.0) g/dL Neutrophils # (1.3-7.7) k/uL BUN 40 H (9-20) mg/dL Creatinine 1.59 H (0.66-1.25) mg/dL Glucose 174 H (74-99) mg/dL POC Glucose (mg/dL) 161 H (75-99) mg/dL Plasma Lactic Acid Aashish 2.3 H* (0.7-2.0) mmol/L Microbiology - Last 24 Hours (Table) 06/11/19 05:53 Blood Culture - Preliminary Blood No Growth after 24 hours Assessment and Plan Assessment: Impression: #1 Acute exacerbation of chronic obstructive pulmonary disease, complicated by purulent tracheobronchitis and bronchopneumonia of the right lower lobe. #2 Acute on chronic hypoxic respiratory failure secondary to above. #3 History of severe chronic obstructive pulmonary disease Gold stage III with an FEV1 value 36% of predicted. #4 Previous history of heavy tobacco use. #5 Morbid obesity. #6 History of hypertension. Plan: The patient was seen and evaluated by Dr. Reagan. He is improved today as compared to yesterday. Not quite back to his baseline. We'll continue the current treatment plan. Repeat a chest x-ray in the morning. We'll continue to follow. I, the cosigning physician, performed a history & physical examination of the patient. Lungs sounds with faint end expiratory wheeze, crackles in the right posterior base. Maintaining good O2 saturations in the 90s on 2 L/m per nasal. I discussed the assessment and plan of care with my nurse practitioner, Daisha Pierson. I attest to the above note as dictated by her.
[2019-06-12] MEDS: LOSARTAN 25 MG TAB PO SCH (12:53)
[2019-06-12] MEDS: ISOSORBIDE MONONITRATE ER 30 MG TAB.ER.24H PO SCH (16:04)
[2019-06-12] MEDS: SODIUM CHLORIDE 0.9% 1,000 ML IV SCH ×2 (16:05→23:15)
[2019-06-12 17:16] LABS: Glucose,Whole Blood 209 mg/dL (75-99)
[2019-06-12 20:33] LABS: Glucose,Whole Blood 303 mg/dL (75-99)
[2019-06-12] MEDS: PRAZOSIN 1 MG CAP PO SCH (21:10)
[2019-06-12] MEDS: QUEtiapine 50 MG TAB PO SCH (21:10)
[2019-06-12] MEDS: PARoxetine 20 MG TAB PO SCH (21:10)
--- NOTE | 2019-06-12 21:29 | P.PN ---
Progress Note - Text Progress Note Date: 06/12/19 Chief Complaint: Difficulty breathing Interval history: This is a pleasant 73-year-old patient of Dr. spears from [place]. Chronic stable medical conditions include GERD, hyperlipidemia, hypertension, home oxygen at night 2 L, cardiomyopathy EF 40-45% from hypertensive heart disease,. Patient is a heavy smoker for close to 50 years and stopped about 4 months ago. She presented one-day history of increasing shortness of breath and wheezing. Cough not able to expectorate. Having chills at home. Had a fever here. Appetite is okay. Admitted for the same. in severe COPD exacerbation. Started on nebulizers, bronchodilators steroids. Today-sitting up in bed. Short of breath. Wheezing. Slight cough. No expectoration. Shade better. Starting a diet. Up to the bathroom. Review of systems: Was done for constitutional, cardiovascular, GI, pulmonary. relevant finding as above Review of systems: GEN.: Tired EYES: None HEENT: None NECK: None RESPIRATORY: As above CARDIOVASCULAR: None GASTROINTESTINAL: None GENITOURINARY: None MUSCULOSKELETAL: None LYMPHATICS: None HEMATOLOGICAL: None PSYCHIATRY: None NEUROLOGICAL: None Social history: . Served in the [employer]. No peripheral close to 50 years a pack a day stopped 4 months ago. No alcohol. Family history: Reviewed, noncontributory to presentation Physical examination: VITAL SIGNS: 97.8, 82, 20, 130/79, 90% on 2 L GENERAL: Sitting up, short of breath. EYES: Pupils equal. Conjunctiva normal. HEENT: External appearance of nose and ears normal, oral cavity grossly normal. NECK: JVD not raised; masses not palpable. HEART: First and second heart sounds are normal; no edema. LUNGS: Respiratory rate increased, short of breath at rest, not able to speak in full sentences, accessory muscle working, decreased breath sounds prolonged expiration and wheezing. ABDOMEN: Soft, nontender, liver spleen not palpable, no masses palpable. PSYCH: Alert and oriented x3; mood and affect anxiousl. INVESTIGATIONS, reviewed in the clinical context: White count 23.3, hemoglobin 11.6, bun 40, creatinine 1.59 Admission testing: White count 15.9 hemoglobin 14.2 platelets 316 potassium 4.6 bun 19 creatinine 1.15 ProBNP 1180 troponin I 0.0-1 influenza A and B both negative EKG tracing personally reviewed by me-not a good study shows sinus rhythm with some P pulmonale Chest x-ray film personally reviewed by me-right lower infiltrate Assessment: -Acute severe COPD exacerbation and an ex-smoker, slow to respond, POA -Right lower lobe pneumonia, suspect gram-negative organism causing sepsis, POA -Acute on chronic hypoxic respiratory failure from underlying COPD and pneum onia, slow to respond -GERD -Hyperlipidemia -Essential hypertension -Chronic hypoxic respiratory failure on home oxygen at night 2 L -Nonischemic cardiomyopathy EF 40-45% from hypertensive heart disease -Morbid obesity BMI 40.1 -Acute renal failure, probably prerenal, new diagnosis Plan: Given worsening renal failure. Patient naproxen. Also hold of Cozaar. On IV fluids. Repeat labs in the morning.
[2019-06-13] MEDS: IPRATROPIUM-ALBUTEROL 3 ML NEB INHALATION SCH ×7 (00:28→23:51)
[2019-06-13 04:34] LABS: Calcium 9.1 mg/dL (8.4-10.2); Potassium 5.2 mmol/L (3.5-5.1)
[2019-06-13 06:32] LABS: Glucose,Whole Blood 140 mg/dL (75-99)
[2019-06-13] MEDS: INSULIN ASPART (NovoLOG) 100 UNIT/ML VIAL SQ SCH ×4 (06:34→21:00)
[2019-06-13] MEDS: BUDESONIDE 1 MG/2 ML NEBU INHALATION SCH ×2 (08:02→20:05)
[2019-06-13] MEDS: FORMOTEROL FUMARATE 20 MCG/2 ML NEBU INHALATION SCH ×2 (08:02→20:05)
--- NOTE | 2019-06-13 09:13 | XR ---
EXAMINATION TYPE: XR chest 2V DATE OF EXAM: 06/13/2019 COMPARISON: 06/11/2019 TECHNIQUE: PA and lateral views submitted. HISTORY: Cough FINDINGS: Heart is enlarged there is right lower lobe infiltrate. Left lung clear. Coarsened interstitium seen. Biapical pleural thickening. Degenerative change of the spine. IMPRESSION: 1. Stable appearing right lower lobe and middle lobe infiltrate. 2. Cardiomegaly with coarsened interstitium which could been the basis of chronic interstitial lung d isease, interstitial pneumonitis or venous congestion.
[2019-06-13] MEDS: SODIUM CHLORIDE 0.9% 1,000 ML IV SCH ×3 (10:25→17:20)
[2019-06-13] MEDS: guaiFENesin 600 MG TABLET.ER PO SCH ×2 (10:25→21:01)
[2019-06-13] MEDS: ASPIRIN 81 MG PO SCH (10:25)
[2019-06-13] MEDS: AZITHROMYCIN 500 MG TAB PO SCH (10:25)
[2019-06-13] MEDS: ENOXAPARIN 40 MG/0.4 ML SYRINGE SQ SCH (10:26)
[2019-06-13] MEDS: ISOSORBIDE MONONITRATE ER 30 MG TAB.ER.24H PO SCH (10:26)
[2019-06-13] MEDS: methylPREDNISolone SOD SUCCI 40 MG/ML 1 ML VIAL IV SCH ×3 (10:26→23:19)
[2019-06-13] MEDS: METOPROLOL TARTRATE 25 MG TAB PO SCH ×2 (10:26→21:01)
[2019-06-13 11:54] LABS: Glucose,Whole Blood 192 mg/dL (75-99)
[2019-06-13 13:02] VITALS: BMI 40.8
--- NOTE | 2019-06-13 15:50 | P.PN ---
Subjective Progress Note Date: 06/13/19 Principal diagnosis: Acute exacerbation of chronic obstructive pulmonary disease complicated by purulent tracheobronchitis and bronchial pneumonia in the right lower lobe The patient is seen today 06/12/2019 in follow-up on the selective care unit. He is awake and alert in no acute distress. Resting comfortably in bed. Breathing a bit easier today as compared to yesterday. Still dyspneic on minimal exertion. Maintaining O2 saturations in the low 90s on 2 L/m per nasal cannula. He is afebrile. Hemodynamically stable. Blood culture reveals no growth to date. White count 23.3. Hemoglobin 11.6. Creatinine 1.59. Lactic acid 2.3. He is continued on ceftriaxone and azithromycin along with bronchodilators and IV Solu-Medrol. Lovenox for DVT prophylaxis. The patient is seen today 06/13/2019 in follow-up on the selective care unit. He is currently resting comfortably in bed. Awake and alert in no acute distress. Breathing easier today as compared to yesterday. He is maintaining O2 saturation low 90s on room air. He is afebrile. Hemodynamically stable. Blood culture reveals no growth. Sodium 138. Potassium 5.2. Chloride 108. Bicarb 23. Creatinine 1.19. Lactic acid 1.1. He is continued on DuoNeb inhalations, Pulmicort and Perforomist inhalations, IV Solu-Medrol, antibiotics in the form of ceftriaxone and azithromycin. His x-ray shows stable appearance of the right lower lobe/middle lobe infiltrate. Cardiomegaly. Weber interstitium. Chronic interstitial disease. Objective - Vital Signs Vital signs: Vital Signs Temp 98.1 F 06/13/19 11:45 Pulse 80 06/13/19 12:05 Resp 19 06/13/19 11:45 BP 124/94 06/13/19 11:45 Pulse Ox 92 L 06/13/19 11:45 Intake & Output 06/12/19 06/13/19 06/13/19 18:59 06:59 18:59 Intake Total 352 403 4875 Output Total 600 400 Balance -190 -280 1330 Weight 121.8 kg 121.8 kg Intake: IV 50 850 Sodium Chloride 0.9% 1, 800 000 ml @ 100 mls/hr IV . Q10H [facility] Rx#:[id number] cefTRIAXone 1 gm In 50 50 Sodium Chloride 0.9% 50 ml @ 100 mls/hr IVPB Q24H [facility] Rx#:[id number] Oral 360 120 480 Output: Urine 600 400 Other: Voiding Method Urinal Urinal # Voids 0 2 1 # Bowel Movements 0 1 - Exam GENERAL EXAM: Alert, pleasant morbidly obese 73-year-old gentleman, comfortable in no apparent distress. On room air. HEAD: Normocephalic. EYES: Normal reaction of pupils, equal size. NOSE: Clear with pink turbinates. THROAT: No erythema or exudates. NECK: No masses, no JVD. CHEST: No chest wall deformity. LUNGS: Equal air entry with end expiratory wheeze, crackles in the right posterior base. CVS: S1 and S2 normal with no audible murmur, regular rhythm. ABDOMEN: No hepatosplenomegaly, normal bowel sounds, no guarding or rigidity. SPINE: No scoliosis or deformity SKIN: No rashes CENTRAL NERVOUS SYSTEM: No focal deficits, tone is normal in all 4 extremities. EXTREMITIES: There is no peripheral edema. No clubbing, no cyanosis. Peripheral pulses are intact. - Labs CBC & Chem 7: 06/12/19 06:02 06/13/19 04:02 Labs: Abnormal Lab Results - Last 24 Hours (Table) 06/12/19 06/12/19 06/12/19 Range/Units 16:13 17:06 19:58 Potassium (3.5-5.1) mmol/L Chloride (98-107) mmol/L BUN (9-20) mg/dL Glucose (74-99) mg/dL POC Glucose (mg/dL) 209 H (75-99) mg/dL Plasma Lactic Acid Aashish 2.2 H* 2.5 H* (0.7-2.0) mmol/L 06/12/19 06/13/19 06/13/19 Range/Units 20:33 00:18 04:02 Potassium 5.2 H (3.5-5.1) mmol/L Chloride 108 H (98-107) mmol/L BUN 43 H (9-20) mg/dL Glucose 149 H (74-99) mg/dL POC Glucose (mg/dL) 303 H (75-99) mg/dL Plasma Lactic Acid Aashish 2.3 H* (0.7-2.0) mmol/L 06/13/19 06/13/19 Range/Units 06:31 11:44 Potassium (3.5-5.1) mmol/L Chloride (98-107) mmol/L BUN (9-20) mg/dL Glucose (74-99) mg/dL POC Glucose (mg/dL) 140 H 192 H (75-99) mg/dL Plasma Lactic Acid Aashish (0.7-2.0) mmol/L Microbiology - Last 24 Hours (Table) 06/11/19 05:53 Blood Culture - Preliminary Blood No Growth after 48 hours Assessment and Plan Assessment: Impression: #1 Acute exacerbation of chronic obstructive pulmonary disease, complicated by purulent tracheobronchitis and bronchopneumonia of the right lower lobe. #2 Acute on chronic hypoxic respiratory failure secondary to above. #3 History of severe chronic obstructive pulmonary disease Gold stage III with an FEV1 value 36% of predicted. #4 Previous history of heavy tobacco use. #5 Morbid obesity. #6 History of hypertension. Plan: The patient was seen and evaluated by Dr. Reagan. He is improved today as compared to yesterday. Not quite back to his baseline. We'll continue the current treatment plan. We'll continue to follow. I, the cosigning physician, performed a history & physical examination of the patient. Lungs sounds with faint end expiratory wheeze, crackles in the right posterior base. Maintaining good O2 saturations in the 90s on 2 L/m per nasal. I discussed the assessment and plan of care with my nurse practitioner, Daisha Pierson. I attest to the above note as dictated by her.
[2019-06-13 16:40] LABS: Glucose,Whole Blood 177 mg/dL (75-99)
[2019-06-13 20:55] LABS: Glucose,Whole Blood 242 mg/dL (75-99)
[2019-06-13] MEDS: PARoxetine 20 MG TAB PO SCH (21:01)
[2019-06-13] MEDS: QUEtiapine 50 MG TAB PO SCH (21:01)
[2019-06-13] MEDS: PRAZOSIN 1 MG CAP PO SCH (23:20)
--- NOTE | 2019-06-14 00:03 | P.PN ---
Progress Note - Text Progress Note Date: 06/13/19 Interval history: This is a pleasant 73-year-old patient of Dr. spears from [place]. Chronic stable medical conditions include GERD, hyperlipidemia, hypertension, home oxygen at night 2 L, cardiomyopathy EF 40-45% from hypertensive heart disease,. Patient is a heavy smoker for close to 50 years and stopped about 4 months ago. She presented one-day history of increasing shortness of breath and wheezing. Cough not able to expectorate. Having chills at home. Had a fever here. Appetite is okay. Admitted for the same. in severe COPD exacerbation. Started on nebulizers, bronchodilators steroids. Today-A bit better. Up to the bathroom. Easily gets short winded wheezing. Dry cough. Diet is good.. Review of systems: Was done for constitutional, cardiovascular, GI, pulmonary. relevant finding as above Active Medications Acetaminophen (Tylenol Tab) 500 mg PO Q6HR PRN PRN Reason: Fever and/ or Pain Albuterol/Ipratropium (Duoneb 0.5 Mg-3 Mg/3 Ml Soln) 3 ml INHALATION RT-Q4H [facility] Last Admin: 06/13/19 23:51 Dose: Not Given Documented by: Aspirin (Aspirin) 81 mg PO DAILY [facility] Last Admin: 06/13/19 10:25 Dose: 81 mg Documented by: Azithromycin (Zithromax) 500 mg PO DAILY [facility] Last Admin: 06/13/19 10:25 Dose: 500 mg Documented by: Budesonide (Pulmicort) 1 mg INHALATION RT-BID [facility] Last Admin: 06/13/19 20:05 Dose: 1 mg Documented by: Enoxaparin Sodium (Lovenox) 40 mg SQ DAILY [facility] Last Admin: 06/13/19 10:26 Dose: 40 mg Documented by: Formoterol Fumarate (Perforomist) 20 mcg INHALATION RT-BID [facility] Last Admin: 06/13/19 20:05 Dose: 20 mcg Documented by: Guaifenesin (Mucinex) 1,200 mg PO Q12HR [facility] Last Admin: 06/13/19 21:01 Dose: 1,200 mg Documented by: Sodium Chloride (Saline 0.9%) 1,000 mls @ 100 mls/hr IV .Q10H [facility] Last Admin: 06/13/19 17:20 Dose: Not Given Documented by: Ceftriaxone Sodium 1 gm/ (Sodium Chloride) 50 mls @ 100 mls/hr IVPB Q24H [facility] Last Admin: 06/13/19 06:35 Dose: 100 mls/hr Documented by: Insulin Aspart (Novolog) 0 unit SQ ACHS [facility]; Protocol Last Admin: 06/13/19 21:00 Dose: 8 unit Documented by: Isosorbide Mononitrate (Imdur) 30 mg PO DAILY [facility] Last Admin: 06/13/19 10:26 Dose: 30 mg Documented by: Methylprednisolone Sodium Succinate (Solu-Medrol) 40 mg IV Q8HR [facility] Last Admin: 06/13/19 23:19 Dose: 40 mg Documented by: Metoprolol Tartrate (Lopressor) 25 mg PO BID [facility] Last Admin: 06/13/19 21:01 Dose: 25 mg Documented by: Miscellaneous Information (Pneumonia Protocol Utilized) 1 each PO ONCE PRN PRN Reason: Per Protocol Paroxetine HCl (Paxil) 40 mg PO [facility] Last Admin: 06/13/19 21:01 Dose: 40 mg Documented by: Prazosin HCl (Minipress) 2 mg PO [facility] Last Admin: 06/13/19 23:20 Dose: 2 mg Documented by: Quetiapine Fumarate (Seroquel) 50 mg PO [facility] Last Admin: 06/13/19 21:01 Dose: 50 mg Documented by: Physical examination: VITAL SIGNS: 98.1, 56, 19, 124/94, 92% room air GENERAL: Sitting up, less short of breath. EYES: Pupils equal. Conjunctiva normal. HEENT: External appearance of nose and ears normal, oral cavity grossly normal. NECK: JVD not raised; masses not palpable. HEART: First and second heart sounds are normal; no edema. LUNGS: Respiratory rate increased, short of breath at rest,, decreased breath sounds prolonged expiration and wheezing. ABDOMEN: Soft, nontender, liver spleen not palpable, no masses palpable. PSYCH: Alert and oriented x3; mood and affect anxiousl. INVESTIGATIONS, reviewed in the clinical context: Potassium 5.2 creatinine 1.19 Accu-Cheks 140, 192, 177 Admission testing: White count 15.9 hemoglobin 14.2 platelets 316 potassium 4.6 bun 19 creatinine 1.15 ProBNP 1180 troponin I 0.0-1 influenza A and B both negative EKG tracing personally reviewed by me-not a good study shows sinus rhythm with some P pulmonale Chest x-ray film personally reviewed by me-right lower infiltrate Assessment: -Acute severe COPD exacerbation and an ex-smoker, slow to respond, POA -Right lower lobe pneumonia, suspect gram-negative organism causing sepsis, POA -Acute on chronic hypoxic respiratory failure from underlying COPD and pneumonia, slow to respond -GERD -Hyperlipidemia -Essential hypertension -Chronic hypoxic respiratory failure on home oxygen at night 2 L -Nonischemic cardiomyopathy EF 40-45% from hypertensive heart disease -Morbid obesity BMI 40.1 -Acute renal failure, probably prerenal, new diagnosis, improving Plan: Patient improving but slowly. Continue with bronchodilators steroids. Patient is due to see the dietitian for weight loss measures. Has been put on 1800- calorie diet. Discussed this at length with the patient.
[2019-06-14] MEDS: IPRATROPIUM-ALBUTEROL 3 ML NEB INHALATION SCH ×7 (03:52→23:53)
[2019-06-14] MEDS: SODIUM CHLORIDE 0.9% 1,000 ML IV SCH ×2 (05:29→20:35)
[2019-06-14 06:24] LABS: Glucose,Whole Blood 136 mg/dL (75-99)
[2019-06-14] MEDS: INSULIN ASPART (NovoLOG) 100 UNIT/ML VIAL SQ SCH ×4 (06:43→20:29)
[2019-06-14] MEDS: FORMOTEROL FUMARATE 20 MCG/2 ML NEBU INHALATION SCH ×2 (08:38→21:19)
[2019-06-14] MEDS: BUDESONIDE 1 MG/2 ML NEBU INHALATION SCH ×2 (08:38→21:19)
[2019-06-14] MEDS: methylPREDNISolone SOD SUCCI 40 MG/ML 1 ML VIAL IV SCH ×3 (09:12→23:26)
[2019-06-14] MEDS: ENOXAPARIN 40 MG/0.4 ML SYRINGE SQ SCH (09:13)
[2019-06-14] MEDS: ASPIRIN 81 MG PO SCH (09:13)
[2019-06-14] MEDS: guaiFENesin 600 MG TABLET.ER PO SCH ×2 (09:13→20:21)
[2019-06-14] MEDS: ISOSORBIDE MONONITRATE ER 30 MG TAB.ER.24H PO SCH (09:13)
[2019-06-14] MEDS: METOPROLOL TARTRATE 25 MG TAB PO SCH ×2 (09:13→20:21)
[2019-06-14] MEDS: AZITHROMYCIN 500 MG TAB PO SCH (09:13)
[2019-06-14 11:56] LABS: Glucose,Whole Blood 219 mg/dL (75-99)
--- NOTE | 2019-06-14 14:18 | CT ---
EXAMINATION TYPE: CT chest wo con DATE OF EXAM: 06/14/2019 COMPARISON: CT chest January 22, 2009. HISTORY: Difficulty breathing CT DLP: 2147.6 mGycm. Automated Exposure Control for Dose Reduction was Utilized. TECHNIQUE: CT scan of the thorax is performed without IV contrast. High-resolution protocol with 1 m m sequences obtained at 10 mm intervals in prone and supine technique. FINDINGS: Exam is markedly suboptimal as there is significant respiratory motion artifact degradation on both sequences obtained. LUNGS: No obvious large amount of peripheral reticulation and/or fibrosis seen bilaterally. Scattered areas of parenchymal scarring are thought present bilaterally. No pneumothorax. MEDIASTINUM: Cardiomegaly is present. Enlarged main pulmonary artery is seen axial image 13 series 40 2, imaging findings consistent with underlying pulmonary hypertension. OTHER: Cortical thinning visualized portion of both kidneys. IMPRESSION: Markedly suboptimal almost nondiagnostic study. No marked peripheral reticulation or fibr osis is present bilaterally. Scattered parenchymal fibrosis is thought present.
--- NOTE | 2019-06-14 15:49 | P.PN ---
Subjective Progress Note Date: 06/14/19 Principal diagnosis: Acute exacerbation of chronic obstructive pulmonary disease complicated by purulent tracheobronchitis and bronchial pneumonia in the right lower lobe The patient is seen today 06/12/2019 in follow-up on the selective care unit. He is awake and alert in no acute distress. Resting comfortably in bed. Breathing a bit easier today as compared to yesterday. Still dyspneic on minimal exertion. Maintaining O2 saturations in the low 90s on 2 L/m per nasal cannula. He is afebrile. Hemodynamically stable. Blood culture reveals no growth to date. White count 23.3. Hemoglobin 11.6. Creatinine 1.59. Lactic acid 2.3. He is continued on ceftriaxone and azithromycin along with bronchodilators and IV Solu-Medrol. Lovenox for DVT prophylaxis. The patient is seen today 06/13/2019 in follow-up on the selective care unit. He is currently resting comfortably in bed. Awake and alert in no acute distress. Breathing easier today as compared to yesterday. He is maintaining O2 saturation low 90s on room air. He is afebrile. Hemodynamically stable. Blood culture reveals no growth. Sodium 138. Potassium 5.2. Chloride 108. Bicarb 23. Creatinine 1.19. Lactic acid 1.1. He is continued on DuoNeb inhalations, Pulmicort and Perforomist inhalations, IV Solu-Medrol, antibiotics in the form of ceftriaxone and azithromycin. His x-ray shows stable appearance of the right lower lobe/middle lobe infiltrate. Cardiomegaly. Ada interstitium. Chronic interstitial disease. The patient is seen today 06/14/2019 in follow-up on the selective care unit. He is currently resting in bed. Awake and alert in no acute distress. Breathing easier today as compared to yesterday. Maintaining O2 saturations in the mid 90s on 2 L/m per nasal cannula. Continued on DuoNeb inhalations, Pulmicort and Perforomist inhalations, IV Solu-Medrol. Objective - Vital Signs Vital signs: Vital Signs Temp 97.0 F L 06/14/19 08:00 Pulse 64 06/14/19 12:08 Resp 24 06/14/19 12:00 BP 154/80 06/14/19 12:00 Pulse Ox 97 06/14/19 12:00 Intake & Output 06/13/19 06/14/19 06/14/19 18:59 06:59 18:59 Intake Total 1570 800 600 Output Total 675 Balance 1570 125 600 Weight 121.8 kg Intake: IV 850 700 Sodium Chloride 0.9% 1, 800 700 000 ml @ 100 mls/hr IV . Q10H [facility] Rx#:[id number] cefTRIAXone 1 gm In 50 Sodium Chloride 0.9% 50 ml @ 100 mls/hr IVPB Q24H [facility] Rx#:[id number] Intake, IV Titration 100 Amount cefTRIAXone 1 gm In 100 Sodium Chloride 0.9% 50 ml @ 100 mls/hr IVPB Q24H [facility] Rx#:[id number] Oral 720 600 Output: Urine 675 Other: Voiding Method Urinal Urinal # Voids 1 # Bowel Movements 1 - Exam GENERAL EXAM: Alert, pleasant morbidly obese 73-year-old gentleman, comfortable in no apparent distress. On room air. HEAD: Normocephalic. EYES: Normal reaction of pupils, equal size. NOSE: Clear with pink turbinates. THROAT: No erythema or exudates. NECK: No masses, no JVD. CHEST: No chest wall deformity. LUNGS: Equal air entry with end expiratory wheeze, crackles in the right p osterior base. CVS: S1 and S2 normal with no audible murmur, regular rhythm. ABDOMEN: No hepatosplenomegaly, normal bowel sounds, no guarding or rigidity. SPINE: No scoliosis or deformity SKIN: No rashes CENTRAL NERVOUS SYSTEM: No focal deficits, tone is normal in all 4 extremities. EXTREMITIES: There is no peripheral edema. No clubbing, no cyanosis. Peripheral pulses are intact. - Labs CBC & Chem 7: 06/12/19 06:02 06/13/19 04:02 Labs: Abnormal Lab Results - Last 24 Hours (Table) 06/13/19 06/13/19 06/14/19 Range/Units 16:32 20:54 06:18 POC Glucose (mg/dL) 177 H 242 H 136 H (75-99) mg/dL 06/14/19 Range/Units 11:50 POC Glucose (mg/dL) 219 H (75-99) mg/dL Microbiology - Last 24 Hours (Table) 06/11/19 05:53 Blood Culture - Preliminary Blood No Growth after 72 hours Assessment and Plan Assessment: Impression: #1 Acute exacerbation of chronic obstructive pulmonary disease, complicated by purulent tracheobronchitis and bronchopneumonia of the right lower lobe. #2 Acute on chronic hypoxic respiratory failure secondary to above. #3 History of severe chronic obstructive pulmonary disease Gold stage III with an FEV1 value 36% of predicted. #4 Previous history of heavy tobacco use. #5 Morbid obesity. #6 History of hypertension. Plan: The patient was seen and evaluated by Dr. Reagan. We will obtain a high- resolution computed tomography scan of the chest today. We'll continue the current treatment plan. We'll continue to follow. I, the cosigning physician, performed a history & physical examination of the patient. Lungs sounds with faint end expiratory wheeze, crackles in the right posterior base. Maintaining good O2 saturations in the 90s on 2 L/m per nasal. I discussed the assessment and plan of care with my nurse practitioner, Daisha Pierson. I attest to the above note as dictated by her.
[2019-06-14 16:42] LABS: Glucose,Whole Blood 186 mg/dL (75-99)
--- NOTE | 2019-06-14 19:50 | P.PN ---
Progress Note - Text Progress Note Date: 06/14/19 Interval history: This is a pleasant 73-year-old patient of Dr. spears from [place]. Chronic stable medical conditions include GERD, hyperlipidemia, hypertension, home oxygen at night 2 L, cardiomyopathy EF 40-45% from hypertensive heart disease,. Patient is a heavy smoker for close to 50 years and stopped about 4 months ago. She presented one-day history of increasing shortness of breath and wheezing. Cough not able to expectorate. Having chills at home. Had a fever here. Appetite is okay. Admitted for the same. in severe COPD exacerbation. Started on nebulizers, bronchodilators steroids. Today-she better than yesterday. Still easily short of breath at rest. With minimal activity. is present. No sputum no fever. Review of systems: Was done for constitutional, cardiovascular, GI, pulmonary. relevant finding as above Active Medications Acetaminophen (Tylenol Tab) 500 mg PO Q6HR PRN PRN Reason: Fever and/ or Pain Albuterol/Ipratropium (Duoneb 0.5 Mg-3 Mg/3 Ml Soln) 3 ml INHALATION RT-Q4H [facility] Last Admin: 06/14/19 15:54 Dose: 3 ml Documented by: Aspirin (Aspirin) 81 mg PO DAILY [facility] Last Admin: 06/14/19 09:13 Dose: 81 mg Documented by: Azithromycin (Zithromax) 500 mg PO DAILY [facility] Last Admin: 06/14/19 09:13 Dose: 500 mg Documented by: Budesonide (Pulmicort) 1 mg INHALATION RT-BID [facility] Last Admin: 06/14/19 08:38 Dose: 1 mg Documented by: Enoxaparin Sodium (Lovenox) 40 mg SQ DAILY [facility] Last Admin: 06/14/19 09:13 Dose: 40 mg Documented by: Formoterol Fumarate (Perforomist) 20 mcg INHALATION RT-BID [facility] Last Admin: 06/14/19 08:38 Dose: 20 mcg Documented by: Guaifenesin (Mucinex) 1,200 mg PO Q12HR [facility] Last Admin: 06/14/19 09:13 Dose: 1,200 mg Documented by: Sodium Chloride (Saline 0.9%) 1,000 mls @ 100 mls/hr IV .Q10H [facility] Last Admin: 06/14/19 05:29 Dose: 100 mls/hr Documented by: Ceftriaxone Sodium 1 gm/ (Sodium Chloride) 50 mls @ 100 mls/hr IVPB Q24H [facility] Last Admin: 06/14/19 05:28 Dose: 100 mls/hr Documented by: Insulin Aspart (Novolog) 0 unit SQ ACHS [facility]; Protocol Last Admin: 06/14/19 17:44 Dose: 5 unit Documented by: Isosorbide Mononitrate (Imdur) 30 mg PO DAILY [facility] Last Admin: 06/14/19 09:13 Dose: 30 mg Documented by: Methylprednisolone Sodium Succinate (Solu-Medrol) 40 mg IV Q8HR [facility] Last Admin: 06/14/19 17:43 Dose: 40 mg Documented by: Metoprolol Tartrate (Lopressor) 25 mg PO BID [facility] Last Admin: 06/14/19 09:13 Dose: 25 mg Documented by: Miscellaneous Information (Pneumonia Protocol Utilized) 1 each PO ONCE PRN PRN Reason: Per Protocol Paroxetine HCl (Paxil) 40 mg PO [facility] Last Admin: 06/13/19 21:01 Dose: 40 mg Documented by: Prazosin HCl (Minipress) 2 mg PO [facility] Last Admin: 06/13/19 23:20 Dose: 2 mg Documented by: Quetiapine Fumarate (Seroquel) 50 mg PO [facility] Last Admin: 06/13/19 21:01 Dose: 50 mg Documented by: Physical examination: VITAL SIGNS: 97.8, 58, 22, 160/75, 97% on 2 L GENERAL: Sitting up, short of breath with minimal activity EYES: Pupils equal. Conjunctiva normal. HEENT: External appearance of nose and ears normal, oral cavity grossly normal. NECK: JVD not raised; masses not palpable. HEART: First and second heart sounds are normal; no edema. LUNGS: Respiratory rate increased, short of breath at rest,, decreased breath sounds prolonged expiration and wheezing. ABDOMEN: Soft, nontender, liver spleen not palpable, no masses palpable. PSYCH: Alert and oriented x3; mood and affect anxiousl. INVESTIGATIONS, reviewed in the clinical context: Potassium 5.2 creatinine 1.19 Accu-Cheks 140, 192, 177 Admission testing: White count 15.9 hemoglobin 14.2 platelets 316 potassium 4.6 bun 19 creatinine 1.15 ProBNP 1180 troponin I 0.0-1 influenza A and B both negative EKG tracing personally reviewed by me-not a good study shows sinus rhythm with some P pulmonale Chest x-ray film personally reviewed by me-right lower infiltrate Assessment: -Acute severe COPD exacerbation and an ex-smoker, slow to respond, POA -Right lower lobe pneumonia, suspect gram-negative organism causing sepsis, POA -Acute on chronic hypoxic respiratory failure from underlying COPD and pneumonia, slow to respond -GERD -Hyperlipidemia -Essential hypertension -Chronic hypoxic respiratory failure on home oxygen at night 2 L -Nonischemic cardiomyopathy EF 40-45% from hypertensive heart disease -Morbid obesity BMI 40.1 -Acute renal failure, probably prerenal, new diagnosis, improving Plan: I did talk to the patient and again about weight loss. Would prefer to patient's stay for another 24 hours at least. Decrease IV Solu-Medrol to every 12. Other medications to continue. We'll also add theophylline.
[2019-06-14] MEDS: PARoxetine 20 MG TAB PO SCH (20:21)
[2019-06-14] MEDS: PRAZOSIN 1 MG CAP PO SCH (20:21)
[2019-06-14] MEDS: QUEtiapine 50 MG TAB PO SCH (20:21)
[2019-06-14 20:22] LABS: Glucose,Whole Blood 165 mg/dL (75-99)
[2019-06-14] MEDS: THEOPHYLLINE 24 HOUR 300 MG CAP.ER.24H PO SCH (20:30)
[2019-06-15] MEDS: IPRATROPIUM-ALBUTEROL 3 ML NEB INHALATION SCH ×5 (03:34→20:52)
[2019-06-15] MEDS: SODIUM CHLORIDE 0.9% 1,000 ML IV SCH ×3 (06:18→13:31)
[2019-06-15 06:25] LABS: Glucose,Whole Blood 148 mg/dL (75-99)
[2019-06-15 06:26] LABS: African American GFR (CKD) >90 (>60 ml/min/1.73 sqM); Anion Gap 7 mmol/L; Blood Urea Nitrogen 36 mg/dL (9-20); Carbon Dioxide 22 mmol/L (22-30); Chloride 110 mmol/L (98-107); Glucose 163 mg/dL (74-99); Sodium 139 mmol/L (137-145)
[2019-06-15 06:27] LABS: Potassium 5.1 mmol/L (3.5-5.1)
[2019-06-15] MEDS: INSULIN ASPART (NovoLOG) 100 UNIT/ML VIAL SQ SCH ×4 (06:33→20:31)
[2019-06-15] MEDS: methylPREDNISolone SOD SUCCI 40 MG/ML 1 ML VIAL IV SCH (08:05)
[2019-06-15] MEDS: AZITHROMYCIN 500 MG TAB PO SCH (08:06)
[2019-06-15] MEDS: ENOXAPARIN 40 MG/0.4 ML SYRINGE SQ SCH (08:06)
[2019-06-15] MEDS: ISOSORBIDE MONONITRATE ER 30 MG TAB.ER.24H PO SCH (08:06)
[2019-06-15] MEDS: guaiFENesin 600 MG TABLET.ER PO SCH ×2 (08:06→20:30)
[2019-06-15] MEDS: ASPIRIN 81 MG PO SCH (08:06)
[2019-06-15] MEDS: METOPROLOL TARTRATE 25 MG TAB PO SCH ×2 (08:06→20:30)
[2019-06-15] MEDS: FORMOTEROL FUMARATE 20 MCG/2 ML NEBU INHALATION SCH ×2 (09:09→20:52)
[2019-06-15] MEDS: BUDESONIDE 1 MG/2 ML NEBU INHALATION SCH ×2 (09:09→20:52)
[2019-06-15 11:37] LABS: Glucose,Whole Blood 131 mg/dL (75-99)
[2019-06-15] MEDS ORDERED: FUROSEMIDE 10 MG/ML 4 ML VIAL IV STA (12:50)
--- NOTE | 2019-06-15 12:51 | P.PN ---
Subjective Progress Note Date: 06/15/19 Principal diagnosis: Acute exacerbation of chronic obstructive pulmonary disease complicated by purulent tracheobronchitis and bronchial pneumonia in the right lower lobe The patient is seen today 06/12/2019 in follow-up on the selective care unit. He is awake and alert in no acute distress. Resting comfortably in bed. Breathing a bit easier today as compared to yesterday. Still dyspneic on minimal exertion. Maintaining O2 saturations in the low 90s on 2 L/m per nasal cannula. He is afebrile. Hemodynamically stable. Blood culture reveals no growth to date. White count 23.3. Hemoglobin 11.6. Creatinine 1.59. Lactic acid 2.3. He is continued on ceftriaxone and azithromycin along with bronchodilators and IV Solu-Medrol. Lovenox for DVT prophylaxis. The patient is seen today 06/13/2019 in follow-up on the selective care unit. He is currently resting comfortably in bed. Awake and alert in no acute distress. Breathing easier today as compared to yesterday. He is maintaining O2 saturation low 90s on room air. He is afebrile. Hemodynamically stable. Blood culture reveals no growth. Sodium 138. Potassium 5.2. Chloride 108. Bicarb 23. Creatinine 1.19. Lactic acid 1.1. He is continued on DuoNeb inhalations, Pulmicort and Perforomist inhalations, IV Solu-Medrol, antibiotics in the form of ceftriaxone and azithromycin. His x-ray shows stable appearance of the right lower lobe/middle lobe infiltrate. Cardiomegaly. [place] interstitium. Chronic interstitial disease. The patient is seen today 06/14/2019 in follow-up on the selective care unit. He is currently resting in bed. Awake and alert in no acute distress. Breathing easier today as compared to yesterday. Maintaining O2 saturations in the mid 90s on 2 L/m per nasal cannula. Continued on DuoNeb inhalations, Pulmicort and Perforomist inhalations, IV Solu-Medrol. The patient is seen today 06/15/2018 in follow-up on the selective care unit. He is recently up ambulating in his room and became quite dyspneic. He is dyspneic on minimal exertion. Dyspnea, and conversation. Not much improved. He is maintaining good O2 saturations in the 90s on 2 L/m per nasal cannula. He's been afebrile. Blood culture reveals no growth. Sodium 139. Potassium 5.1. Creatinine 0.98. He is continued on DuoNeb inhalations, Pulmicort and perform is inhalations, IV Solu-Medrol, theophylline. Antibiotics in the form of ceftriaxone and azithromycin. Lovenox for DVT prophylaxis. Objective - Vital Signs Vital signs: Vital Signs Temp 97.0 F L 06/15/19 08:00 Pulse 76 06/15/19 09:26 Resp 22 06/15/19 08:00 BP 133/105 06/15/19 08:00 Pulse Ox 95 06/15/19 08:00 Intake & Output 06/14/19 06/15/19 06/15/19 18:59 06:59 18:59 Intake Total 820 1300 60 Output Total 250 Balance 820 1300 -190 Weight 125.8 kg Intake: IV 900 Sodium Chloride 0.9% 1, 900 000 ml @ 100 mls/hr IV . Q10H [facility] Rx#:[id number] Oral 820 400 60 Output: Urine 250 Other: Voiding Method Urinal Urinal # Voids 1 - Exam GENERAL EXAM: Alert, pleasant morbidly obese 73-year-old gentleman, in mild respiratory distress distress. On 2 L/m per nasal cannula. HEAD: Normocephalic. EYES: Normal reaction of pupils, equal size. NOSE: Clear with pink turbinates. THROAT: No erythema or exudates. NECK: No masses, no JVD. CHEST: No chest wall deformity. LUNGS: Equal air entry with end expiratory wheeze, crackles in the right posterior base. CVS: S1 and S2 normal with no audible murmur, regular rhythm. ABDOMEN: No hepatosplenomegaly, normal bowel sounds, no guarding or rigidity. SPINE: No scoliosis or deformity SKIN: No rashes CENTRAL NERVOUS SYSTEM: No focal deficits, tone is normal in all 4 extremities. EXTREMITIES: There is no peripheral edema. No clubbing, no cyanosis. Peripheral pulses are intact. - Labs CBC & Chem 7: 06/12/19 06:02 06/15/19 05:46 Labs: Abnormal Lab Results - Last 24 Hours (Table) 06/14/19 06/14/19 06/15/19 Range/Units 16:40 20:22 05:46 Chloride 110 H (98-107) mmol/L BUN 36 H (9-20) mg/dL Glucose 163 H (74-99) mg/dL POC Glucose (mg/dL) 186 H 165 H (75-99) mg/dL 06/15/19 06/15/19 Range/Units 06:23 11:35 Chloride (98-107) mmol/L BUN (9-20) mg/dL Glucose (74-99) mg/dL POC Glucose (mg/dL) 148 H 131 H (75-99) mg/dL Microbiology - Last 24 Hours (Table) 06/11/19 05:53 Blood Culture - Preliminary Blood No Growth after 96 hours Assessment and Plan Assessment: Impression: #1 Acute exacerbation of chronic obstructive pulmonary disease, complicated by purulent tracheobronchitis and bronchopneumonia of the right lower lobe. #2 Acute on chronic hypoxic respiratory failure secondary to above. #3 History of severe chronic obstructive pulmonary disease Gold stage III with an FEV1 value 36% of predicted. #4 Previous history of heavy tobacco use. #5 Morbid obesity. #6 History of hypertension. Plan: The patient was seen and evaluated by Dr. Reagan. Computed tomography scan and labs reviewed. Continue with his current pulmonary medications. Add Lasix 40 m g IVP 1. Still not back to his baseline. We'll continue to follow. I, the cosigning physician, performed a history & physical examination of the patient. Lungs sounds with faint end expiratory wheeze, crackles in the right posterior base. Maintaining good O2 saturations in the 90s on 2 L/m per nasal. I discussed the assessment and plan of care with my nurse practitioner, Daisha Pierson. I attest to the above note as dictated by her.
[2019-06-15] MEDS ORDERED: methylPREDNISolone SOD SUCCI 40 MG/ML 1 ML VIAL IV SCH (13:00)
[2019-06-15] MEDS: methylPREDNISolone SOD SUCCI 125 MG/2 ML VIAL IV SCH ×2 (14:01→18:17)
[2019-06-15 16:55] LABS: Glucose,Whole Blood 276 mg/dL (75-99)
[2019-06-15] MEDS ORDERED: INSULIN ASPART (NovoLOG) 100 UNIT/ML VIAL SQ ONE (17:16)
--- NOTE | 2019-06-15 17:52 | P.PN ---
Subjective Progress Note Date: 06/15/19 Principal diagnosis: Acute exacerbation of chronic obstructive pulmonary disease Mr. Zarate is a 73-year-old male with a past history of GERD, hypertension, hyperlipidemia, chronic hypoxic respiratory failure, cardiomyopathy with ejection fraction of 40-45% coming in with shortness of breath and wheezing. He is currently being treated for acute COPD exacerbation. On 06/15/2019 - patient is lying in bed comfortably appears to be no acute distress. He states his difficulty in breathing is slowly improving. Patient denies having any chest pain or palpitations. No abdominal pain nausea vomiting or diarrhea. No dysuria or hematuria. Patient's labs and vitals have been reviewed. Active Medications Acetaminophen (Tylenol Tab) 500 mg PO Q6HR PRN PRN Reason: Fever and/ or Pain Albuterol/Ipratropium (Duoneb 0.5 Mg-3 Mg/3 Ml Soln) 3 ml INHALATION RT-Q4H [facility] Last Admin: 06/15/19 15:59 Dose: 3 ml Documented by: Aspirin (Aspirin) 81 mg PO DAILY [facility] Last Admin: 06/15/19 08:06 Dose: 81 mg Documented by: Azithromycin (Zithromax) 500 mg PO DAILY [facility] Last Admin: 06/15/19 08:06 Dose: 500 mg Documented by: Budesonide (Pulmicort) 1 mg INHALATION RT-BID [facility] Last Admin: 06/15/19 09:09 Dose: 1 mg Documented by: Enoxaparin Sodium (Lovenox) 40 mg SQ DAILY [facility] Last Admin: 06/15/19 08:06 Dose: 40 mg Documented by: Formoterol Fumarate (Perforomist) 20 mcg INHALATION RT-BID [facility] Last Admin: 06/15/19 09:09 Dose: 20 mcg Documented by: Guaifenesin (Mucinex) 1,200 mg PO Q12HR [facility] Last Admin: 06/15/19 08:06 Dose: 1,200 mg Documented by: Ceftriaxone Sodium 1 gm/ (Sodium Chloride) 50 mls @ 100 mls/hr IVPB Q24H [facility] Last Admin: 06/15/19 06:18 Dose: 100 mls/hr Documented by: Insulin Aspart (Novolog) 0 unit SQ ACHS [facility]; Protocol Last Admin: 06/15/19 17:38 Dose: 8 unit Documented by: Isosorbide Mononitrate (Imdur) 30 mg PO DAILY [facility] Last Admin: 06/15/19 08:06 Dose: 30 mg Documented by: Methylprednisolone Sodium Succinate (Solu-Medrol) 60 mg IV Q6HR [facility] Last Admin: 06/15/19 14:01 Dose: 60 mg Documented by: Metoprolol Tartrate (Lopressor) 25 mg PO BID [facility] Last Admin: 06/15/19 08:06 Dose: 25 mg Documented by: Miscellaneous Information (Pneumonia Protocol Utilized) 1 each PO ONCE PRN PRN Reason: Per Protocol Paroxetine HCl (Paxil) 40 mg PO [facility] Last Admin: 06/14/19 20:21 Dose: 40 mg Documented by: Prazosin HCl (Minipress) 2 mg PO [facility] Last Admin: 06/14/19 20:21 Dose: 2 mg Documented by: Quetiapine Fumarate (Seroquel) 50 mg PO [facility] Last Admin: 06/14/19 20:21 Dose: 50 mg Documented by: Theophylline (Brad-24) 300 mg PO [facility] Last Admin: 06/14/19 20:30 Dose: 300 mg Documented by: Objective - Vital Signs Vital signs: Vital Signs Temp 97.2 F L 06/15/19 16:00 Pulse 76 06/15/19 16:12 Resp 18 06/15/19 16:00 BP 156/88 06/15/19 16:00 Pulse Ox 94 L 06/15/19 16:01 Intake & Output 06/14/19 06/15/19 06/15/19 18:59 06:59 18:59 Intake Total 820 1300 300 Output Total 1600 Balance 820 1300 -1300 Weight 125.8 kg Intake: IV 900 Sodium Chloride 0.9% 1, 900 000 ml @ 100 mls/hr IV . Q10H [facility] Rx#:[id number] Oral 820 400 300 Output: Urine 1600 Other: Voiding Method Urinal Urinal # Voids 1 - Exam GENERAL: Sitting up, short of breath with minimal activity like going to the restroom EYES: Pupils equal. Conjunctiva normal. HEENT: External appearance of nose and ears normal, oral cavity grossly normal. NECK: JVD not raised; masses not palpable. HEART: First and second heart sounds are normal; no edema. LUNGS: Respiratory rate increased, short of breath at rest,, decreased breath sounds prolonged expiration and wheezing. ABDOMEN: Soft, nontender, liver spleen not palpable, no masses palpable. PSYCH: Alert and oriented x3; mood and affect anxiousl. - Labs CBC & Chem 7: 06/12/19 06:02 06/15/19 05:46 Labs: Abnormal Lab Results - Last 24 Hours (Table) 06/14/19 06/15/19 06/15/19 Range/Units 20:22 05:46 06:23 Chloride 110 H (98-107) mmol/L BUN 36 H (9-20) mg/dL Glucose 163 H (74-99) mg/dL POC Glucose (mg/dL) 165 H 148 H (75-99) mg/dL 06/15/19 06/15/19 Range/Units 11:35 16:49 Chloride (98-107) mmol/L BUN (9-20) mg/dL Glucose (74-99) mg/dL POC Glucose (mg/dL) 131 H 276 H (75-99) mg/dL Microbiology - Last 24 Hours (Table) 06/11/19 05:53 Blood Culture - Preliminary Blood No Growth after 96 hours Assessment and Plan Assessment: Assessment: -Acute severe COPD exacerbation -Right lower lobe pneumonia, suspect gram-negative organism -Acute on chronic hypoxic respiratory failure from underlying COPD and pneumonia -GERD -Hyperlipidemia -Essential hypertension -Chronic hypoxic respiratory failure on home oxygen at night 2 L -Nonischemic cardiomyopathy EF 40-45% from hypertensive heart disease -Morbid obesity BMI 40.1 -Acute renal failure - resolved PLAN -as per the nursing staff report, patient was very short of breath earlier this morning. After receiving a dose of Lasix his urine output increased and his difficulty in breathing improved. Continue with antibiotics in the form of ceftriaxone and azithromycin. Continue with IV steroids and breathing treatments. Continue with the rest of his medication regimen. Further recommendations to follow depending on the progress of the patient.
[2019-06-15 20:27] LABS: Glucose,Whole Blood 242 mg/dL (75-99)
[2019-06-15] MEDS: PRAZOSIN 1 MG CAP PO SCH (20:29)
[2019-06-15] MEDS: PARoxetine 20 MG TAB PO SCH (20:29)
[2019-06-15] MEDS: THEOPHYLLINE 24 HOUR 300 MG CAP.ER.24H PO SCH (20:29)
[2019-06-15] MEDS: QUEtiapine 50 MG TAB PO SCH (20:30)
[2019-06-16] MEDS: IPRATROPIUM-ALBUTEROL 3 ML NEB INHALATION SCH ×6 (00:26→20:52)
[2019-06-16] MEDS: methylPREDNISolone SOD SUCCI 125 MG/2 ML VIAL IV SCH ×5 (01:00→23:23)
[2019-06-16 06:30] LABS: Glucose,Whole Blood 141 mg/dL (75-99)
[2019-06-16 06:34] LABS: HGB 12.1 gm/dL (13.0-17.5); MCH 30.8 pg (25.0-35.0); MCHC 31.9 g/dL (31.0-37.0); MCV 96.3 fL (80.0-100.0); Mean Platelet Volume 6.3; Platelet Count 313 k/uL (150-450); RBC 3.94 m/uL (4.30-5.90); RDW 13.7 % (11.5-15.5); WBC 16.1 k/uL (3.8-10.6)
[2019-06-16] MEDS: INSULIN ASPART (NovoLOG) 100 UNIT/ML VIAL SQ SCH ×4 (06:36→21:44)
[2019-06-16 06:47] LABS: Calcium 9.1 mg/dL (8.4-10.2); Potassium 4.3 mmol/L (3.5-5.1)
[2019-06-16 07:03] LABS: Band Neutrophils % 5 %; Lymphocytes # (M) 0.81 k/uL (1.0-4.8); Metamyelocytes # (M) 0.64 k/uL (0); Metamyelocytes % 4 %; Monocytes # (M) 0.32 k/uL (0-1.0); Neutrophils % (M) 84 %; Nucleated Red Blood Cells 0 /100 WBC (0-0); Total Cells Counted 100
[2019-06-16] MEDS: BUDESONIDE 1 MG/2 ML NEBU INHALATION SCH ×2 (08:02→20:52)
[2019-06-16] MEDS: FORMOTEROL FUMARATE 20 MCG/2 ML NEBU INHALATION SCH ×2 (08:02→20:52)
[2019-06-16] MEDS: guaiFENesin 600 MG TABLET.ER PO SCH ×2 (08:49→20:32)
[2019-06-16] MEDS: ISOSORBIDE MONONITRATE ER 30 MG TAB.ER.24H PO SCH (08:49)
[2019-06-16] MEDS: ASPIRIN 81 MG PO SCH (08:49)
[2019-06-16] MEDS: AZITHROMYCIN 500 MG TAB PO SCH (08:49)
[2019-06-16] MEDS: METOPROLOL TARTRATE 25 MG TAB PO SCH ×2 (08:49→20:33)
[2019-06-16] MEDS: ENOXAPARIN 40 MG/0.4 ML SYRINGE SQ SCH (08:50)
[2019-06-16 11:48] LABS: Glucose,Whole Blood 232 mg/dL (75-99)
--- NOTE | 2019-06-16 12:19 | PN ---
PROGRESS NOTE DATE OF SERVICE: 06/16/2019 This is a very pleasant 73-year-old male who was admitted with COPD exacerbation complicated by purulent tracheobronchitis and also right lower lobe bronchopneumonia. He has acute on chronic hypoxemic respiratory failure, severe chronic obstructive pulmonary disease with an FEV1 that is 36% of predicted, previous history of heavy tobacco use, morbid obesity, and hypertension. He seemed to initially improve. Then, he seemed to get worse again. More significantly, in the last day or so, he has improved again. Today, he is resting comfortably, sleeping in bed. He is still on some nasal O2 at a couple liters. He may need to be discharged home on oxygen. His major complaint is cough and chest congestion. He is coughing up a small amount of phlegm. PHYSICAL EXAMINATION: VITAL SIGNS: Current vital signs are stable and include a temperature of 97, heart rate 68, respiratory rate 20, blood pressure 149/83, mean 105 and 2 L saturation 99%. He seems much more comfortable today than he did yesterday. There is no audible wheezing or use of accessory muscles. HEENT examination is grossly unremarkable. Mucous membranes are moist. No oral lesions. NECK: Supple. Full range of motion. No adenopathy, thyromegaly or neck vein distention. CARDIOVASCULAR examination reveals distant heart sounds. Heart rate about 70 beats per minute. S1, S2 normal. No murmur. LUNGS: Reveal coarse bilateral expiratory rhonchi. Some mild expiratory wheezes. No crackles. Breath sounds equal bilaterally but diminished throughout. Breath sounds today are improved over yesterday. ABDOMEN is distended and obese. Bowel sounds are heard. No tenderness. EXTREMITIES are intact. No edema. SKIN: Without rash. NEUROLOGIC examination is brief but nonfocal. LAB DATA: Reviewed. White count 16.1, hemoglobin 12.1, hematocrit 38.0, platelet count 313,000. Sodium, potassium, chloride and CO2 all normal. Anion gap 9. BUN and creatinine were 35 and 1.12. Microbiology include blood and sputum sampling is negative. No recent chest x-ray to report. Chest CT from the is reviewed. ASSESSMENT: 1. Chronic obstructive pulmonary disease exacerbation complicated by purulent tracheobronchitis and bronchopneumonia, right lower lobe. 2. Acute on chronic hypoxemic respiratory failure secondary to chronic obstructive pulmonary disease. 3. Severe/GOLD stage 3 chronic obstructive pulmonary disease, with an FEV1 that is 36% of predicted. 4. Previous history of heavy tobacco use. 5. Morbid obesity. 6. Benign essential hypertension. PLAN: Overall, the patient seems to be showing improvement. We will continue with current regimen. No additional recommendations are made. Likely discharge in next 24-48 hours. Follow up with me in the office. [id number] / IJN: [id number] /
--- NOTE | 2019-06-16 16:24 | P.PN ---
Subjective Progress Note Date: 06/16/19 Principal diagnosis: Acute exacerbation of chronic obstructive pulmonary disease Mr. Zarate is a 73-year-old male with a past history of GERD, hypertension, hyperlipidemia, chronic hypoxic respiratory failure, cardiomyopathy with ejection fraction of 40-45% coming in with shortness of breath and wheezing. He is currently being treated for acute COPD exacerbation. On 06/16/2019- patient is lying in bed comfortably. Patient is on 2 L of oxygen saturating in the low 90s, he states that it is his baseline. He is chest receiving a breathing treatment currently. He denies having any chest pain or palpitations. No abdominal pain nausea vomiting or diarrhea. No dysuria or hematuria. He denies having any lower extremity swelling. No acute events reported by nursing staff. Active Medications Acetaminophen (Tylenol Tab) 500 mg PO Q6HR PRN PRN Reason: Fever and/ or Pain Albuterol/Ipratropium (Duoneb 0.5 Mg-3 Mg/3 Ml Soln) 3 ml INHALATION RT-Q4H [facility] Last Admin: 06/16/19 15:41 Dose: 3 ml Documented by: Aspirin (Aspirin) 81 mg PO DAILY [facility] Last Admin: 06/16/19 08:49 Dose: 81 mg Documented by: Azithromycin (Zithromax) 500 mg PO DAILY [facility] Last Admin: 06/16/19 08:49 Dose: 500 mg Documented by: Budesonide (Pulmicort) 1 mg INHALATION RT-BID [facility] Last Admin: 06/16/19 08:02 Dose: 1 mg Documented by: Enoxaparin Sodium (Lovenox) 40 mg SQ DAILY [facility] Last Admin: 06/16/19 08:50 Dose: 40 mg Documented by: Formoterol Fumarate (Perforomist) 20 mcg INHALATION RT-BID [facility] Last Admin: 06/16/19 08:02 Dose: 20 mcg Documented by: Guaifenesin (Mucinex) 1,200 mg PO Q12HR [facility] Last Admin: 06/16/19 08:49 Dose: 1,200 mg Documented by: Ceftriaxone Sodium 1 gm/ (Sodium Chloride) 50 mls @ 100 mls/hr IVPB Q24H [facility] Last Admin: 06/16/19 05:52 Dose: 100 mls/hr Documented by: Insulin Aspart (Novolog) 0 unit SQ ACHS [facility]; Protocol Last Admin: 06/16/19 12:16 Dose: 8 unit Documented by: Isosorbide Mononitrate (Imdur) 30 mg PO DAILY [facility] Last Admin: 06/16/19 08:49 Dose: 30 mg Documented by: Methylprednisolone Sodium Succinate (Solu-Medrol) 60 mg IV Q6HR [facility] Last Admin: 06/16/19 12:16 Dose: 60 mg Documented by: Metoprolol Tartrate (Lopressor) 25 mg PO BID [facility] Last Admin: 06/16/19 08:49 Dose: 25 mg Documented by: Miscellaneous Information (Pneumonia Protocol Utilized) 1 each PO ONCE PRN PRN Reason: Per Protocol Paroxetine HCl (Paxil) 40 mg PO [facility] Last Admin: 06/15/19 20:29 Dose: 40 mg Documented by: Prazosin HCl (Minipress) 2 mg PO [facility] Last Admin: 06/15/19 20:29 Dose: 2 mg Documented by: Quetiapine Fumarate (Seroquel) 50 mg PO [facility] Last Admin: 06/15/19 20:30 Dose: 50 mg Documented by: Theophylline (Brad-24) 300 mg PO [facility] Last Admin: 06/15/19 20:29 Dose: 300 mg Documented by: Objective - Vital Signs Vital signs: Vital Signs Temp 97.8 F 06/16/19 12:00 Pulse 64 06/16/19 15:53 Resp 20 06/16/19 12:00 BP 102/53 06/16/19 12:00 Pulse Ox 98 06/16/19 12:00 Intake & Output 06/15/19 06/16/19 06/16/19 18:59 06:59 18:59 Intake Total 540 240 600 Output Total 1600 800 350 Balance -1060 -560 250 Weight 122.6 kg Intake: Oral 540 240 600 Output: Urine 1600 800 350 Other: Voiding Method Urinal # Voids 1 - Exam GENERAL: Sitting up, short of breath with minimal activity like going to the res troom EYES: Pupils equal. Conjunctiva normal. HEENT: External appearance of nose and ears normal, oral cavity grossly normal. NECK: JVD not raised; masses not palpable. HEART: First and second heart sounds are normal; no edema. LUNGS: Bilateral significant wheezing in all lung sosa ABDOMEN: Soft, nontender, liver spleen not palpable, no masses palpable. PSYCH: Alert and oriented x3; mood and affect anxiousl. - Labs CBC & Chem 7: 06/16/19 05:32 06/16/19 05:32 Labs: Abnormal Lab Results - Last 24 Hours (Table) 06/15/19 06/15/19 06/16/19 Range/Units 16:49 20:25 05:32 WBC 16.1 H (3.8-10.6) k/uL RBC 3.94 L (4.30-5.90) m/uL Hgb 12.1 L (13.0-17.5) gm/dL Hct 38.0 L (39.0-53.0) % Neutrophils # (Manual) 14.30 H (1.3-7.7) k/uL Lymphocytes # (Manual) 0.81 L (1.0-4.8) k/uL Metamyelocytes # (Man) 0.64 H (0) k/uL BUN (9-20) mg/dL Glucose (74-99) mg/dL POC Glucose (mg/dL) 276 H 242 H (75-99) mg/dL 06/16/19 06/16/19 06/16/19 Range/Units 05:32 06:28 11:43 WBC (3.8-10.6) k/uL RBC (4.30-5.90) m/uL Hgb (13.0-17.5) gm/dL Hct (39.0-53.0) % Neutrophils # (Manual) (1.3-7.7) k/uL Lymphocytes # (Manual) (1.0-4.8) k/uL Metamyelocytes # (Man) (0) k/uL BUN 35 H (9-20) mg/dL Glucose 133 H (74-99) mg/dL POC Glucose (mg/dL) 141 H 232 H (75-99) mg/dL Microbiology - Last 24 Hours (Table) 06/16/19 08:05 Gram Stain - Preliminary Sputum Sputum Culture - Preliminary 06/11/19 05:53 Blood Culture - Preliminary Blood No Growth after 120 hours Assessment and Plan Assessment: Assessment: -Acute severe COPD exacerbation -Right lower lobe pneumonia, suspect gram-negative organism -Acute on chronic hypoxic respiratory failure from underlying COPD and pneumonia -GERD -Hyperlipidemia -Essential hypertension -Chronic hypoxic respiratory failure on home oxygen at night 2 L -Nonischemic cardiomyopathy EF 40-45% from hypertensive heart disease -Morbid obesity BMI 40.1 -Acute renal failure - resolved PLAN -patient is still actively wheezing, we will continue with IV steroids and breathing treatments. He seems to be improving at a very slow rate. Continue with antibiotics in the form of ceftriaxone and azithromycin. Continue with the rest of his medication regimen. Further recommendations to follow depending on the progress of the patient.
[2019-06-16 16:39] LABS: Glucose,Whole Blood 103 mg/dL (75-99)
[2019-06-16] MEDS: PARoxetine 20 MG TAB PO SCH (20:32)
[2019-06-16] MEDS: THEOPHYLLINE 24 HOUR 300 MG CAP.ER.24H PO SCH (20:32)
[2019-06-16] MEDS: PRAZOSIN 1 MG CAP PO SCH (20:32)
[2019-06-16] MEDS: QUEtiapine 50 MG TAB PO SCH (20:33)
[2019-06-16 21:27] LABS: Glucose,Whole Blood 183 mg/dL (75-99)
[2019-06-17] MEDS: IPRATROPIUM-ALBUTEROL 3 ML NEB INHALATION SCH ×5 (00:44→15:49)
[2019-06-17 06:16] LABS: Glucose,Whole Blood 145 mg/dL (75-99)
[2019-06-17 06:26] LABS: HCT 37.3 % (39.0-53.0); HGB 11.4 gm/dL (13.0-17.5); MCH 29.7 pg (25.0-35.0); MCHC 30.5 g/dL (31.0-37.0); MCV 97.3 fL (80.0-100.0); Mean Platelet Volume 7.2; Platelet Count 315 k/uL (150-450); RBC 3.84 m/uL (4.30-5.90); RDW 13.8 % (11.5-15.5); WBC 19.1 k/uL (3.8-10.6)
[2019-06-17] MEDS: methylPREDNISolone SOD SUCCI 125 MG/2 ML VIAL IV SCH ×2 (06:28→12:15)
[2019-06-17] MEDS: INSULIN ASPART (NovoLOG) 100 UNIT/ML VIAL SQ SCH ×3 (06:28→17:50)
[2019-06-17 06:48] LABS: Calcium 8.9 mg/dL (8.4-10.2); Potassium 4.5 mmol/L (3.5-5.1)
[2019-06-17] MEDS: FORMOTEROL FUMARATE 20 MCG/2 ML NEBU INHALATION SCH (08:28)
[2019-06-17] MEDS: BUDESONIDE 1 MG/2 ML NEBU INHALATION SCH (08:28)
[2019-06-17] MEDS: guaiFENesin 600 MG TABLET.ER PO SCH (09:12)
[2019-06-17] MEDS: ISOSORBIDE MONONITRATE ER 30 MG TAB.ER.24H PO SCH (09:12)
[2019-06-17] MEDS: ENOXAPARIN 40 MG/0.4 ML SYRINGE SQ SCH (09:13)
[2019-06-17] MEDS: AZITHROMYCIN 500 MG TAB PO SCH (09:13)
[2019-06-17] MEDS: ASPIRIN 81 MG PO SCH (09:13)
[2019-06-17] MEDS: METOPROLOL TARTRATE 25 MG TAB PO SCH (09:13)
[2019-06-17 10:56] VITALS: RESP 20; TEMP 98
[2019-06-17 12:07] LABS: Glucose,Whole Blood 204 mg/dL (75-99)
--- NOTE | 2019-06-17 15:39 | P.DS ---
Providers Date of admission: 06/11/19 06:02 Expected date of discharge: 06/17/19 Attending physician: Pardeep Paz Consults: 06/11/19 06:35 Consult Physician Routine Consulting Provider: Kevin Reagan Consult Reason/Comments: COPD. PNEUMONIA. Do you want consulting provider notified?: Yes Primary care physician: John Sawyer [facility] Course: Mr. Zarate is a 73-year-old male with a past medical history of GERD, hypertension, hyperlipidemia, COPD on home oxygen of 2 L, cardiomyopathy with ejection fraction 40-45%, paced [id number] of smoking quit since Father's Day of 2018 coming into the hospital with a chief complaint of difficulty in breathing and wheezing. Initially the patient was placed on BiPAP in the emergency department, later on started on bronchodilators IV steroids and antibiotics. Patient had a chest x-ray showing right lower lobe bronchial pneumonia and so he was treated with antibiotics for it. Patient also very slow responder and eventually he states that he is back to his baseline today. He has been cleared by pulmonary services to be discharged home on tapering dose of steroids and Levaquin for 3 more days. Vital Signs - 8 hr 06/17/19 06/17/19 06/17/19 08:00 08:29 08:36 Temperature 98.0 F Pulse Rate 68 64 Pulse Rate [ 64 Pulse Oximetery ] Respiratory 20 Rate Blood Pressure 164/81 [Right Arm] O2 Sat by Pulse 96 Oximetry 06/17/19 06/17/19 06/17/19 08:43 11:14 11:25 Temperature Pulse Rate 68 64 68 Pulse Rate [ Pulse Oximetery ] Respiratory Rate Blood Pressure [Right Arm] O2 Sat by Pulse Oximetry 06/17/19 12:00 Temperature Pulse Rate Pulse Rate [ 60 Pulse Oximetery ] Respiratory 20 Rate Blood Pressure 155/69 [Right Arm] O2 Sat by Pulse 99 Oximetry - Exam GENERAL: No acute distress. EYES: Pupils equal. Conjunctiva normal. HEENT: External appearance of nose and ears normal, oral cavity grossly normal. NECK: JVD not raised; masses not palpable. HEART: First and second heart sounds are normal; no edema. LUNGS: Bilateral mild wheezing in all lung sosa ABDOMEN: Soft, nontender, liver spleen not palpable, no masses palpable. PSYCH: Alert and oriented x3; eager to go home. DISCHARGE DIAGNOSIS -Acute severe COPD exacerbation -Right lower lobe pneumonia, suspect gram-negative organism -Acute on chronic hypoxic respiratory failure from underlying COPD and pneumonia -GERD -Hyperlipidemia -Essential hypertension -Chronic hypoxic respiratory failure on home oxygen at night 2 L -Nonischemic cardiomyopathy EF 40-45% from hypertensive heart disease -Morbid obesity BMI 40.1 -Acute renal failure - resolved Follow-up : Patient is being discharged home in a stable condition and was to follow up with Dr. Reagan , Dr. Grant - follow-up appointments made. He is advised to complete his antibiotic course and the tapering dose of steroids. Patient Condition at Discharge: Fair Plan - Discharge Summary Discharge Rx Participant: No New Discharge Prescriptions: New Levofloxacin [Levaquin] 750 mg PO DAILY 3 Days #3 tab predniSONE See Taper PO DAILY 16 Days #40 tab Continue Budesonide/Formoterol Fumarate [Symbicort 160-4.5 Mcg Inhaler] 2 puff INHALATION RT-BID QUEtiapine FUMARATE 50 mg PO HS Prazosin HCl 2 mg PO HS PARoxetine HCL [Paxil] 40 mg PO HS Aspirin 81 mg PO DAILY #30 chew Losartan [Cozaar] 25 mg PO DAILY #60 tab Ipratropium-Albuterol Nebulize [Duoneb 0.5 mg-3 mg/3 ml Soln] 3 ml INHALATION RT-Q4H PRN #60 ampul.neb PRN Reason: Shortness Of Breath Or Wheezing Isosorbide Mononitrate ER [Imdur] 30 mg PO DAILY #30 tab.er.24h Metoprolol Tartrate [Lopressor] 25 mg PO BID #60 tab Discharge Medication List Budesonide/Formoterol Fumarate [Symbicort 160-4.5 Mcg Inhaler] 2 puff INHALATION RT-BID 03/02/19 [History] PARoxetine HCL [Paxil] 40 mg PO HS 03/02/19 [History] Prazosin HCl 2 mg PO HS 03/02/19 [History] QUEtiapine FUMARATE 50 mg PO HS 03/02/19 [History] Aspirin 81 mg PO DAILY #30 chew 03/07/19 [Rx] Ipratropium-Albuterol Nebulize [Duoneb 0.5 mg-3 mg/3 ml Soln] 3 ml INHALATION RT-Q4H PRN #60 ampul.neb 03/07/19 [Rx] Isosorbide Mononitrate ER [Imdur] 30 mg PO DAILY #30 tab.er.24h 03/07/19 [Rx] Losartan [Cozaar] 25 mg PO DAILY #60 tab 03/07/19 [Rx] Metoprolol Tartrate [Lopressor] 25 mg PO BID #60 tab 03/07/19 [Rx] Levofloxacin [Levaquin] 750 mg PO DAILY 3 Days #3 tab 06/17/19 [Rx] predniSONE See Taper PO DAILY 16 Days #40 tab 06/17/19 [Rx] Follow up Appointment(s)/Referral(s): Kevin Reagan DO [Doctor of Osteopathic Medicine] - 06/27/19 9:30 am ( -previously scheduled appointment) John Grant MD [Primary Care Provider] - 06/21/19 1:15 pm (Monday) Patient Instructions/Handouts: Pneumonia (DC) Discharge Disposition: HOME SELF-CARE
[2019-06-17 16:29] LABS: Glucose,Whole Blood 188 mg/dL (75-99)
[2019-06-17 17:32] VITALS: BP 151/70; PULSE 58
--- NOTE | 2019-06-17 18:44 | P.PN ---
Subjective Progress Note Date: 06/17/19 73-year-old male patient is being seen in follow-up regarding a right lower lobe pneumonia. Exacerbation. Clinically feeling better. Less short of breath. No significant cough or sputum production. He is less bronchospastic and wheezy compared to yesterday. He was receiving Rocephin and Zithromax as broad- spectrum antibiotic coverage and the patient was also on IV Solu-Medrol. He has a combination of DuoNeb nebulized with [id number] and a combination of Perforomist and Pulmicort neb last 2 minutes twice a day. Cultures of been negative. No altered mentation. No nausea. No vomiting. No hemoptysis. No pleurisy. He is able to speak full sentences without any major difficulties. Objective - Vital Signs Vital signs: Vital Signs Temp 98.0 F 06/17/19 08:00 Pulse 58 L 06/17/19 16:00 Resp 20 06/17/19 16:00 BP 151/70 06/17/19 16:00 Pulse Ox 96 06/17/19 16:00 Intake & Output 06/16/19 06/17/19 06/17/19 18:59 06:59 18:59 Intake Total 850 840 Output Total 350 1100 300 Balance 500 -1100 540 Weight 123.8 kg Intake: Oral 850 840 Output: Urine 350 1100 300 Other: Voiding Method Urinal - Exam GENERAL EXAM: Alert, pleasant morbidly obese 73-year-old gentleman, 9 acute distress, obese with a BMI of 41.5 HEAD: Normocephalic. EYES: Normal reaction of pupils, equal size. NOSE: Clear with pink turbinates. THROAT: No erythema or exudates. NECK: No masses, no JVD. CHEST: No chest wall deformity. LUNGS: Equal air entry with end expiratory wheeze, crackles in the right posterior base. CVS: S1 and S2 normal with no audible murmur, regular rhythm. ABDOMEN: No hepatosplenomegaly, normal bowel sounds, no guarding or rigidity. SPINE: No scoliosis or deformity SKIN: No rashes CENTRAL NERVOUS SYSTEM: No focal deficits, tone is normal in all 4 extremities. EXTREMITIES: There is no peripheral edema. No clubbing, no cyanosis. Peripheral pulses are intact. - Labs CBC & Chem 7: 06/17/19 05:32 06/17/19 05:32 Labs: Abnormal Lab Results - Last 24 Hours (Table) 06/16/19 06/17/19 06/17/19 Range/Units 21:25 05:32 05:32 WBC 19.1 H (3.8-10.6) k/uL RBC 3.84 L (4.30-5.90) m/uL Hgb 11.4 L (13.0-17.5) gm/dL Hct 37.3 L (39.0-53.0) % MCHC 30.5 L (31.0-37.0) g/dL BUN 36 H (9-20) mg/dL Glucose 153 H (74-99) mg/dL POC Glucose (mg/dL) 183 H (75-99) mg/dL 06/17/19 06/17/19 06/17/19 Range/Units 06:15 12:05 16:24 WBC (3.8-10.6) k/uL RBC (4.30-5.90) m/uL Hgb (13.0-17.5) gm/dL Hct (39.0-53.0) % MCHC (31.0-37.0) g/dL BUN (9-20) mg/dL Glucose (74-99) mg/dL POC Glucose (mg/dL) 145 H 204 H 188 H (75-99) mg/dL Microbiology - Last 24 Hours (Table) 06/16/19 08:05 Gram Stain - Preliminary Sputum Sputum Culture - Preliminary Gram Neg Bacilli 06/11/19 05:53 Blood Culture - Final Blood No Growth after 144 hours Assessment and Plan Plan: #1 Acute exacerbation of chronic obstructive pulmonary disease, complicated by purulent tracheobronchitis and bronchopneumonia of the right lower lobe. #2 Acute on chronic hypoxic respiratory failure secondary to above. #3 History of severe chronic obstructive pulmonary disease Gold stage III with an FEV1 value 36% of predicted. #4 Previous history of heavy tobacco use. #5 Morbid obesity. #6 History of hypertension. #7 leukocytosis Plan Patient is improved. The patient doing well. There is some right lower lobe infiltration still. I think the patient can be discharged home on oral anti biotics and a prednisone burst taper to be followed up in our office with a repeat chest x-ray in a week's time. He is hemodynamically stable. No altered mentation. No nausea or emesis. He should be able to tolerate oral intakeantibiotics and prednisone burst taper.
== END 2019-06-17 18:05 | disposition home or self-care (01) | DRG 871 ==
LOC: EC 05:00 → 3SCARD 06:02
PROVIDERS: ADMIT Hospitalist; ATTEND Hospitalist
PROC: 5A09457 Assistance with Respiratory Ventilation, 24-96 Consecutive Hours, Continuous Positive Airway Pressure (ICD-10-PCS; principal; 2019-06-11)
DX: A41.50 Gram-negative sepsis, unspecified (principal); J15.6 Pneumonia due to other Gram-negative bacteria; J96.21 Acute and chronic respiratory failure with hypoxia; Z68.41 Body mass index [BMI] 40.0-44.9, adult; I42.8 Other cardiomyopathies; J44.0 Chronic obstructive pulmonary disease with (acute) lower respiratory infection; J44.1 Chronic obstructive pulmonary disease with (acute) exacerbation; N17.9 Acute kidney failure, unspecified; E66.01 Morbid (severe) obesity due to excess calories; E78.5 Hyperlipidemia, unspecified; F43.10 Post-traumatic stress disorder, unspecified; I11.9 Hypertensive heart disease without heart failure; K21.9 Gastro-esophageal reflux disease without esophagitis; Z79.51 Long term (current) use of inhaled steroids; Z79.82 Long term (current) use of aspirin; Z79.899 Other long term (current) drug therapy; Z82.49 Family history of ischemic heart disease and other diseases of the circulatory system; Z87.891 Personal history of nicotine dependence; Z90.49 Acquired absence of other specified parts of digestive tract; Z99.81 Dependence on supplemental oxygen
CPT/HCPCS: 36415; 71045; 71046; 71250; 80048; 80053; 83605; 83880; 84484; 85025; 85027; 85610; 85730; 87040; 87070; 87077; 87186; 87205; 87502; 93005; 94640; 94660; 94760; 96365; 99291